=== PATIENT | male | born 1950 | race Caucasian/White ===

== ENCOUNTER → 2017-08-02 13:17 | Outpatient (CLI) | payer MEDICARE, OTHER, SELFPAY ==
[2017-08-02 17:08] LABS: BUN Creatinine Ratio 21.3 (6-22); Estimated Glomerular Filt Rate > 60.0 mL/min (>60)
== END ==
PROVIDERS: PCP Family Medicine; Visit Provider Otolaryngology
DX: J38.01 Paralysis of vocal cords and larynx, unilateral (principal)
CPT/HCPCS: 36415; 82565; 84520

== ENCOUNTER → 2017-08-08 13:52 | Outpatient (CLI) | payer MEDICARE, OTHER, SELFPAY ==
--- NOTE | 2017-08-08 | DI.CT.S_ITS ---
PROCEDURE: CT SOFT TISSUE NECK W CON INDICATIONS: LEFT VOCAL CORD PARALYSIS TECHNIQUE: After the administration of intravenous contrast, 3.0 mm axial sections acquired from the skull base to the upper chest. Additional 1.5 mm axial sections acquired through the true vocal cords. 1 mm thick coronal reformats were generated. For radiation dose reduction, the following was used: automated exposure control. COMPARISON: None. FINDINGS: Image quality: Excellent. Vocal cords: Vocal cords appear irregular with an apparent partially calcified nodule in the left leaf posteriorly.. Neck spaces: The oropharynx, nasopharynx, and pharynx demonstrate no mucosal lesions. The epiglottis, vallecular, and tongue base all appear normal. There is incomplete aeration of the left anterior portion of the puriform sinus and suggestion of a 12 mm soft tissue mass just inferior to the hyoid bone. Enhancement however is homogeneous to surrounding tissues except perhaps some subtle peripheral hyperenhancement. The soft tissue mass effect extends superiorly along the left tonsillar pillar to the base of tongue. Lymph nodes: No enlarged lymph nodes seen throughout the neck. Left supraclavicular lymph nodes measure up to 9 mm in short diameter. There is however an abnormal lobulated soft tissue mass in the superior mediastinum lateral to the trachea on the left, measuring 18 mm in short diameter. This is immediately subadjacent to the thyroid gland and could represent an exophytic nodule but enlarged lymph node cannot be excluded. Vessels: Visualized vasculature appears patent. Glands: The parotid and submandibular glands appear normal. Thyroid gland appears normal except for possible exophytic nodule at the inferior pole on the left as noted above.. Miscellaneous: Visualized brain and orbits appear unremarkable. Lung apices appear clear. Superficial soft tissues appear normal. The esophagus is markedly distended with prominent air fluid level. Distal portion of the esophagus is not included. Bones: No suspicious bony lesions. There is mucous membrane thickening and a small meniscus in the right maxillary sinus, otherwise sinuses sinuses and mastoids appear unremarkable. IMPRESSION: 1. Irregular, nodular left leaf of the vocal cords. Direct visualization advised. 2. Apparent soft tissue mass with minimal enhancement compromising the left piriform sinus. Again direct visualization is advised. 3. Negat esophagus. Findings could reflect achalasia or distal stricture or other obstruction such as tumor. Unless this is a known abnormality, fasting esophagram or endoscopy is suggested. 4. Soft tissue mass left superior mediastinum. Differential includes an enlarged lymph node, exophytic thyroid nodule or large parathyroid adenoma. Thyroid ultrasound may be helpful. 5. Chronic and possibly active right maxillary sinusitis. Dictated by: Bigg Boo M.D. on 08/08/2017 at 14:42 Approved by: Bigg Boo M.D. on 08/08/2017 at 15:03
== END ==
PROVIDERS: PCP Family Medicine; Visit Provider Otolaryngology
DX: J38.01 Paralysis of vocal cords and larynx, unilateral (principal); J32.0 Chronic maxillary sinusitis; R05 Cough; R49.0 Dysphonia
CPT/HCPCS: 70491; Q9967

== ENCOUNTER → 2017-11-19 13:00 | Outpatient (CLI) | payer MEDICARE, OTHER, SELFPAY | PROVIDERS: PCP Family Medicine | DX: Z23 Encounter for immunization (principal) | CPT/HCPCS: 90471; 90662 ==

== ENCOUNTER → 2018-07-01 14:05 | Outpatient (CLI) | payer MEDICARE, OTHER, SELFPAY ==
[2018-07-01 14:30] LABS: Add Manual Diff / Slide Review NO; Basophils Absolute Auto 100 /uL (0-100); Basophils Percent Auto 1.2 % (0-2); Eosinophils Absolute Auto 800 /uL (0-450); Eosinophils Percent Auto 8.4 % (2-4); Hematocrit 42.5 % (41-53); Hemoglobin 14.6 g/dL (13.5-17.5); Lymphocytes Absolute Auto 2300 /uL (1100-4500); Mean Corpuscular HGB Conc 34.4 % (30-36); Mean Corpuscular Hemoglobin 31.1 PG (26-34); Mean Corpuscular Volume 90.5 fL (80-100); Monocytes Absolute Auto 900 /uL (0-900); Monocytes Percent Auto 9.6 % (3-14); Neutrophils Absolute Auto 5400 /uL (1500-7000); Neutrophils Percent Auto 56.8 % (50-75); Platelet Count 298 X10^3/uL (150-400); White Blood Cell Count 9.5 X10^3/uL (4.5-11.0)
[2018-07-01 14:47] LABS: Alanine Aminotransferase 26 IU/L (21-72); Albumin 4.6 g/dL (3.5-5.0); Albumin Globulin Ratio 1.4 (1.0-2.8); Alkaline Phosphatase 53 U/L (38-126); Aspartate Aminotransferase 34 IU/L (17-59); BUN Creatinine Ratio 21.3 (6-22); Bilirubin Total 0.5 mg/dL (0.2-1.3); Blood Urea Nitrogen 17 mg/dL (9-20); Calcium 9.3 mg/dL (8.4-10.2); Carbon Dioxide 27 mmol/L (22-32); Chloride 102 mmol/L (98-107); Cholesterol 147 mg/dL (140-199); Estimated Glomerular Filt Rate > 60.0 mL/min (>60); Globulin 3.3 g/dL (1.7-4.1); Glucose 110 mg/dL (80-110); HDL Cholesterol 55 mg/dL (40-60); HEMOLYSIS < 15 (0-50); LDL Cholesterol Calculated 53 mg/dL (<100); Sodium 141 mmol/L (137-145); Total Protein 7.9 g/dL (6.3-8.2); Triglycerides 194 mg/dL (35-150)
== END ==
PROVIDERS: PCP Student in an Organized Health Care Education/Training Program; Visit Provider Student in an Organized Health Care Education/Training Program
DX: E78.00 Pure hypercholesterolemia, unspecified (principal); E55.9 Vitamin D deficiency, unspecified; I10 Essential (primary) hypertension; M10.9 Gout, unspecified; Z79.899 Other long term (current) drug therapy
CPT/HCPCS: 36415; 80053; 80061; 82306; 85025

== ENCOUNTER → 2018-07-24 10:34 | Outpatient (CLI) | payer MEDICARE, OTHER, SELFPAY ==
[2018-07-24 11:27] LABS: Add Manual Diff / Slide Review NO; Basophils Absolute Auto 200 /uL (0-100); Basophils Percent Auto 1.3 % (0-2); Eosinophils Absolute Auto 1500 /uL (0-450); Eosinophils Percent Auto 12.4 % (2-4); Hematocrit 43.1 % (41-53); Hemoglobin 14.3 g/dL (13.5-17.5); Lymphocytes Absolute Auto 2500 /uL (1100-4500); Mean Corpuscular HGB Conc 33.2 % (30-36); Mean Corpuscular Hemoglobin 29.8 PG (26-34); Monocytes Absolute Auto 1200 /uL (0-900); Monocytes Percent Auto 9.8 % (3-14); Neutrophils Absolute Auto 6700 /uL (1500-7000); Neutrophils Percent Auto 55.5 % (50-75); Platelet Count 324 X10^3/uL (150-400); Red Blood Cell Count 4.79 X10^6/uL (4.5-5.9); Red Cell Distribution Width 14.2 % (11.6-14.8); White Blood Cell Count 12.1 X10^3/uL (4.5-11.0)
[2018-07-26 14:16] LABS: Angiotensin Converting Enzyme 18 U/L (9-67)
[2018-07-26 15:42] LABS: HLA B27 NEGATIVE (Negative)
[2018-07-27 14:23] LABS: Mitogen-NIL 6.99 IU/mL; NIL 0.02 IU/mL; QuantiFERON TB NEGATIVE (Negative); TB1-NIL < 0.01 IU/mL; TB2-NIL < 0.01 IU/mL
[2018-07-28 12:33] LABS: Lysozyme (Muramidase) 7.6 mcg/mL (5.0-11.0)
[2018-07-28 13:41] LABS: RPR Screen Nonreactive (Nonreactive)
== END ==
PROVIDERS: PCP Student in an Organized Health Care Education/Training Program; Visit Provider Ophthalmology
DX: H20.011 Primary iridocyclitis, right eye (principal); M45.9 Ankylosing spondylitis of unspecified sites in spine
CPT/HCPCS: 36415; 82164; 85025; 85549; 86480; 86592; 86777; 86778; 86780; 86812

== ENCOUNTER → 2018-07-29 10:48 | Outpatient (CLI) | payer MEDICARE, OTHER, SELFPAY ==
[2018-07-29 12:24] LABS: BUN Creatinine Ratio 22.9 (6-22); Blood Urea Nitrogen 16 mg/dL (9-20); Carbon Dioxide 30 mmol/L (22-32); Chloride 97 mmol/L (98-107); Estimated Glomerular Filt Rate > 60.0 mL/min (>60); Glucose 103 mg/dL (80-110); HEMOLYSIS < 15 (0-50); Potassium 4.7 mmol/L (3.4-5.1); Sodium 138 mmol/L (137-145)
--- NOTE | 2018-07-29 12:28 | DI.CT.S_ITS ---
PROCEDURE: CT CHEST W CON INDICATIONS: mediastinal mass superior L side TECHNIQUE: After the administration of intravenous contrast, 5 mm thick sections acquired from the pulmonary apices to the posterior costophrenic angles. 7 mm thick coronal and sagittal MIP reformats were acquired. For radiation dose reduction, the following was used: automated exposure control, adjustment of mA and/or kV according to patient size. COMPARISON: [facility], CT, CT SOFT TISSUE NECK W CON, 07/29/2018, 13:17. [facility], CT, CT SOFT TISSUE NECK W CON, 08/08/2017, 13:55. FINDINGS: Image quality: Excellent. Lungs and pleura: No acute consolidation. Multiple bilateral variable size pulmonary nodules measuring up to 1.6 x 1.3 cm in the right upper lobe on image 20 series 3. 2.2 x 1.6 cm dominant nodule seen in the left lung in the left upper lobe on image 29 series 3. No pleural effusions or pneumothorax. Central and peripheral airways are patent and normal in caliber. Mediastinum: Heart size is normal. Coronary artery calcifications are present. No pericardial effusion. Large right hilar lymphadenopathy image 41 series 2 measuring approximately 3.6 x 2.2 cm. Shotty mediastinal lymph nodes, appear subcentimeter in size. Thoracic aorta and central pulmonary arteries are normal in size. Large hiatal hernia is present. There is a residual fluid seen within the esophagus. Bones and chest wall: No suspicious bony lesions. No vertebral body compression fractures. Enlarged left supraclavicular lymph node measuring 2.4 x 2.9 cm on image 4 series 2. No pathologically enlarged axillary lymphadenopathy. Thyroid gland is mildly rightward displaced secondary to 4.1 x 3.3 cm mass in the left anterior superior mediastinum potentially thyroid although technically unclear origin, previously this measured 2.0 x 2.4 cm on 08/08/17 Abdomen: Visualized upper abdominal solid organs appear normal. Upper abdominal bowel loops are normal in caliber. IMPRESSION: Interval development of numerous bilateral pulmonary metastases as detailed above. Poorly defined left superior mediastinal lymphadenopathy/soft tissue mass. This has progressed since the prior study dated 08/08/17 Enlarged right hilar and left supraclavicular lymphadenopathy Large hiatal hernia. Dictated by: Angel Salas M.D. on 07/29/2018 at 14:31 Approved by: Angel Salas M.D. on 07/29/2018 at 14:46
--- NOTE | 2018-07-29 12:29 | DI.CT.S_ITS ---
PROCEDURE: CT SOFT TISSUE NECK W CON INDICATIONS: superior mediastinal mass Left TECHNIQUE: After the administration of intravenous contrast, 3.0 mm axial sections acquired from the sella to the aortic arch. Additional oblique axial 3.0 mm sections acquired through the pharynx. 3 mm thick coronal and sagittal reformats were generated. For radiation dose reduction, the following was used: automated exposure control. COMPARISON: [facility], CT, CT SOFT TISSUE NECK W CON, 08/08/2017, 13:55. FINDINGS: Image quality: Excellent. Lymph nodes: There are multiple enlarged left level IV lymph nodes are noted with largest node measuring 2.2 cm short axis. Vessels: Visualized vasculature appears patent. Neck spaces: The left superior mediastinal soft tissue density mass has increased in size and now involves the left lower neck/upper mediastinum. Prominence and irregularity of the left tongue base mucosal extending into the left vallecula is noted which is not significantly changed compared to 08/08/2017.. The nasopharynx, and pharynx demonstrate no mucosal lesions. The vocal cords, false vocal cords, pyriform sinuses, epiglottis and right vallecula all appear normal. Nodularity of the left vocal cord identified on prior CT scan obtained 08/08/17 is not seen on the current study. Extramucosal spaces appear unremarkable. Glands: The parotid and submandibular glands appear normal. Thyroid gland contains small subcentimeter nodules. Miscellaneous: Visualized brain and orbits appear normal. Numerous nodules are scattered throughout the lung apices bilaterally ranging in size from 0.3-1.8 cm. Superficial soft tissues appear normal. Patulous esophagus is stable. Bones: No suspicious bony lesions. Mucosal thickening and frothy air fluid level noted in the right maxillary sinus. Small left maxillary sinus mucous retention cyst versus polyp. The visualized mastoids appear unremarkable. IMPRESSION: 1. Enlargement of left superior mediastinal mass with extension into the lower left neck. Finding highly suspicious for primary or metastatic carcinoma versus lymphoma. Biopsy is recommended for further evaluation. Lesion could be biopsied under ultrasound guidance if clinically indicated. 2. Left level IV metastatic lymphadenopathy. 3. Multiple bilateral lung metastatic nodules. 4. Left tongue base mucosal prominence and irregularity stable compared to 08/08/2017. 5. Patulous esophagus concerning for distal esophageal stricture which could be benign or malignant. Dictated by: Angie Rg MD, PhD on 07/29/2018 at 16:46 Approved by: Angie Rg MD, PhD on 07/29/2018 at 17:04
== END ==
PROVIDERS: PCP Student in an Organized Health Care Education/Training Program; Visit Provider Surgery
DX: C80.1 Malignant (primary) neoplasm, unspecified (principal); C78.01 Secondary malignant neoplasm of right lung; C78.02 Secondary malignant neoplasm of left lung; C77.8 Secondary and unspecified malignant neoplasm of lymph nodes of multiple regions; J98.59 Other diseases of mediastinum, not elsewhere classified; I25.10 Atherosclerotic heart disease of native coronary artery without angina pectoris; K44.9 Diaphragmatic hernia without obstruction or gangrene; J38.00 Paralysis of vocal cords and larynx, unspecified; R22.1 Localized swelling, mass and lump, neck; R22.2 Localized swelling, mass and lump, trunk
CPT/HCPCS: 36415; 70491; 71260; 80048; 99215; Q9967

== ENCOUNTER → 2018-08-12 08:49 | Outpatient (CLI) | payer MEDICARE, OTHER, SELFPAY ==
--- NOTE | 2018-08-12 | PATH_ITS ---
Note [facility] Accession Number: [id number] TESTS RESULT FLAG UNITS REF RANGE LAB Clinician Provided Cytology Information No. of containers..01 ThinPrep Vial No. of containers..08 Previously Prepared Cytology Slide [A] 01 L SUPRACLAVICULAR LY DIAGNOSIS: [A] 02 L Supraclavicular lymph node POSITIVE FOR MALIGNANT CELLS. THIS INTERPRETATION INCLUDES EVALUATION OF A CELL BLOCK. IMMUNOHISTOCHEMISTRY STUDIES PENDING; RESULTS WILL BE REPORTED AN ADDENDUM. COMMENT: Results discussed with Dr. Funes on 08/14/18 at approximately 2:00 p.m. Pathologist ICD10: 02 J98.59 01 No prev h/o cancer. Positive for malignancy. Possibly melanoma? 02 Tori Bro MD, Pathologist NPI- [id number] Terence Rodriguez, Production Director ([facility]) 01 30 CC, PINK, CLEAR Also received 4 alcohol fixed, 4 quick stained slides, and 1 RNA vial. /HKH FLAG LEGEND: L-Low Normal,H-High Normal,LL-Alert Low,HH-Alert High <-Panic Low,>-Panic High,A-Abnormal,AA-Critical Abnormal Performed at: 01 =Z [facility] [address] [address], [place] [address] Arian Mills MD, 02 LCLWA [facility] [address] [place] [id number] Amita Zuniga MD, Performed at: [address] [facility] [address], [place], [place] [id number] MD Arian Mills MD Phone: [phone]
--- NOTE | 2018-08-12 08:50 | DI.US.S_ITS ---
PROCEDURE: US FINE NEEDLE ASPIRATION INDICATIONS: ENLARGED LEFT SUPRACLAVICULAR LYMPH NODE TECHNIQUE: The indications, alternatives, benefits, risks, and complications of the procedure were explained to the patient. Written informed consent was obtained and placed in the chart. The area of interest was examined sonographically and a site was chosen for ultrasound guided percutaneous sampling. The skin was prepared and draped in the usual fashion, and anesthetized with 1% lidocaine infiltrated from the skin down to the lesion. Multiple passes were then performed, with contents emptied into an appropriate pathology specimen container. A bandage was applied to the area of access at completion of the study. COMPARISON: [facility], CT, CT SOFT TISSUE NECK W CON, 07/29/2018, 13:17. FINDINGS: Location(s) of lesion(s) sampled: Left supraclavicular lymph node [place]: 25 gauge hypodermic needles. Number of passes: 8 Medications: 1% lidocaine for local anaesthesia. Complications: None. IMPRESSION: Successful ultrasound-guided left supraclavicular lymph node fine needle aspiration biopsy, with cytology results pending. Dictated by: Margo Shukla M.D. on 08/12/2018 at 10:50 Approved by: Margo Shukla M.D. on 08/12/2018 at 10:51
== END ==
PROVIDERS: PCP Student in an Organized Health Care Education/Training Program; Visit Provider Surgery
DX: R59.0 Localized enlarged lymph nodes (principal); J98.59 Other diseases of mediastinum, not elsewhere classified
CPT/HCPCS: 10005

== ENCOUNTER 2018-08-25 01:34 | Emergency (ER) | payer MEDICARE, OTHER, SELFPAY ==
--- NOTE | 2018-08-25 01:46 | ED.NECK ---
HPI - Neck Pain/Injury General Chief Complaint: Chest Pain Stated Complaint: neck pain Time Seen by Provider: 08/25/18 01:46 Source: patient, family, EMS and old records reviewed Mode of arrival: EMS Limitations: no limitations History of Present Illness HPI Narrative: Patient is a a 68-year-old male who presents with bilateral neck pain. He said started will come from a sleep. No radiation down to his hands. No chest pain or shortness of breath. 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 Initially did not seek treatment however over the last 5-6 months he has had increased difficulty swallowing. He had scans in July which showed increased gross in left sided mass with lung involvement. This is likely metastatic disease. He had a biopsy done at the beginning of the month. states that he is scheduled to meet with surgery tomorrow to get results of the pathology. MD complaint: neck pain Related Data Home Medications Medication Instructions Recorded Confirmed [DGL supplement] 2 cap PO QDAY #0 06/08/16 07/31/18 coQ10 (ubiquinol) PO 10/16/17 07/31/18 olive leaf extract 250 mg capsule 750 mg PO cap 10/16/17 07/31/18 cinnamon bark 500 mg capsule 500 mg PO DAILY 06/05/18 07/31/18 krill oil 500 mg capsule mg PO cap 06/05/18 07/31/18 slow niacin PO 06/05/18 07/31/18 Previous Rx's Medication Instructions Recorded omeprazole 20 mg tablet,delayed 20 mg PO Q DAY #90 tab 10/31/17 release hydrocortisone valerate 0.2 % 1 applictn TOP BID #15 gram 06/05/18 topical cream losartan 50 mg tablet 50 mg PO QDAY #90 tab 06/05/18 simvastatin 10 mg tablet 10 mg PO HS #90 tab 06/05/18 hydrocodone-acetaminophen [[place]] 0.5 tab PO Q6H PRN #10 tab 08/25/18 Allergies Allergy/AdvReac Type Severity Reaction Status Date / Time No Known Drug Allergies Allergy Verified 07/31/18 14:48 Review of Systems Review of Systems ROS Unobtainable: All systems reviewed & are unremarkable except as noted in HPI and below Constitutional Denies chills, Denies fever(s), Denies lethargy and Denies weakness Eyes Denies change in vision, Denies eye discharge, Denies irritation and Denies loss of vision ENT Ears, Nose, Mouth, and Throat: Reports system reviewed and no additional complaints, except as docu Cardiovascular Denies chest pain, Denies irregular heart rhythm, Denies lightheadedness, Denies palpitations, Denies dyspnea, Denies dyspnea on exertion and Denies orthopnea Respiratory Denies cough, Denies dyspnea, Denies dyspnea on exertion and Denies wheezing Gastrointestinal Gastrointestinal: Denies abdominal pain, Denies change in bowel habits, Denies diarrhea, Denies nausea and Denies vomiting Musculoskeletal Denies back pain, Denies muscle weakness, Denies numbness and Denies tingling Integumentary/Breasts Denies pruritus, Denies erythema, Denies rash and Denies wounds Neurologic Denies loss of vision, Denies numbness, Denies tingling and Denies weakness Endocrine Denies palpitations Allergic/Immunologic Denies wheezing FORMERLY [facility], 1928–[address] scan, neck (Chronic) Mediastinal mass (Chronic) Vocal cord paralysis (Chronic) GERD (gastroesophageal reflux disease) (Chronic Unknown) Gout (Chronic Unknown) Hyperlipemia (Chronic Unknown) Hypertension (Chronic Unknown) Chickenpox (Resolved) Hemorrhoids (Resolved Unknown) Hx of cardiac arrhythmia (Resolved Unknown) Hx of deep venous thrombosis (Resolved 01/2016) Measles (Resolved) Mumps (Resolved) Surgical History History of tonsillectomy and adenoidectomy (Resolved Unknown) Hx of appendectomy (Resolved Unknown) Hx of bilateral inguinal hernia repair (Resolved 12/2016) Family History Sister Cancer Family/Other Cancer Social History (Updated 07/29/18 @ 10:03 by Vida Branham RN) marital status: household members: spouse occupational status: previously employed Smoking Status: Never smoker alcohol intake: never substance use type: does not use Family History Sister Cancer Family/Other Cancer Social History marital status: household members: spouse occupational status: previously employed Smoking Status: Never smoker alcohol intake: never substance use type: does not use Exam Initial Vital Signs Initial Vital Signs: Vital Signs Temperature 98.3 F 08/25/18 01:48 Pulse Rate 67 08/25/18 01:48 Respiratory Rate 20 08/25/18 01:48 Blood Pressure 131/68 08/25/18 01:48 Pulse Oximetry 100 08/25/18 01:48 GENERAL: Alert pleasant overweight male no acute distress and in [no acute] distress. HEENT: Head atraumatic,EOMI, pupils reactive, face symmetric, CARDIOVASCULAR: Regular rate and rhythm without murmurs, rubs or gallops. RESPIRATORY: Breath sounds equal bilaterally, no wheezes rales or rhonchi. Voice is hoarse but no difficulty managing secretions no obvious respiratory distress ABDOMEN: Soft, nontender. Normoactive bowel sounds all 4 quadrants. No guarding or rebound. EXTREMITIES: Normal range of motion, no clubbing or edema. Neurovascularly intact NEUROLOGICAL: Alert and oriented x4.Normal gait and speech. Cranial nerves II through XII grossly intact. SKIN: Warm, dry, no laceration, no petechiae, no rashes or lesions. Course Orders Ordered: ED Orders 08/25/18 EKG-12 Lead Routine 08/25/18 01:50 Complete Blood Count AUTO DIFF Stat Comprehensive Metabolic Panel Stat Lipase Stat Troponin & CK Cardiac Panel Stat 08/25/18 01:52 CT chest w con Stat CT soft tissue neck w con Stat Discontinued Medications Hydrocodone Bitart/Acetaminophen (Vicodin Prepack) 1 bottle MISC SEEINSTR ONE Stop: 08/25/18 05:05 Last Admin: 08/25/18 05:10 Dose: 1 bottle Vital Signs - 8 hr 08/25/18 01:48 08/25/18 04:22 08/25/18 05:12 Temperature 98.3 F Pulse Rate 67 66 82 Respiratory Rate 20 23 18 Blood Pressure 131/68 142/72 H Blood Pressure [Right Arm] 134/69 Pulse Oximetry 100 93 99 MDM - Neck Pain/Injury Lab Data Attestation: I reviewed the patient's lab results. Result diagrams: 08/25/18 01:50 08/25/18 01:50 Lab Results 08/25/18 08/25/18 Range/Units 01:50 01:50 WBC 15.4 H (4.5-11.0) X10^3/uL RBC 4.80 (4.5-5.9) X10^6/uL Hgb 14.5 (13.5-17.5) g/dL Hct 42.5 (41-53) % MCV 88.7 (80-100) fL MCH 30.3 (26-34) PG MCHC 34.2 (30-36) % RDW 14.4 (11.6-14.8) % Plt Count 306 (150-400) X10^3/uL Neut % (Auto) 57.1 (50-75) % Lymph % (Auto) 18.7 L (25-40) % [place] % (Auto) 8.1 (3-14) % Eos % (Auto) 14.9 H (2-4) % Baso % (Auto) 1.2 (0-2) % Neut # (Auto) 8800 H (0357-5831) /uL Lymph # (Auto) 2900 (6723-2709) /uL [place] # (Auto) 1200 H (0-900) /uL Eos # (Auto) 2300 H (0-450) /uL Baso # (Auto) 200 H (0-100) /uL Sodium 137 (137-145) mmol/L Potassium 3.9 (3.4-5.1) mmol/L Chloride 98 (98-107) mmol/L Carbon Dioxide 29 (22-32) mmol/L BUN 16 (9-20) mg/dL Creatinine 0.80 (0.66-1.25) mg/dL Estimated GFR > 60.0 (>60) mL/min BUN/Creatinine Ratio 20.0 (6-22) Glucose 127 H (80-110) mg/dL Calcium 9.4 (8.4-10.2) mg/dL Total Bilirubin 0.4 (0.2-1.3) mg/dL AST 25 (17-59) IU/L ALT 19 L (21-72) IU/L Alkaline Phosphatase 56 (38-126) U/L Total Creatine Kinase 193 H (55-170) U/L CK-MB (CK-2) 3.12 H (<2.37) ng/mL CK-MB (CK-2) Rel Index 1.6 (1.5-5.0) % Troponin I < 0.012 (0.01-0.034) ng/mL Total Protein 8.0 (6.3-8.2) g/dL Albumin 4.4 (3.5-5.0) g/dL Globulin 3.6 (1.7-4.1) g/dL Albumin/Globulin Ratio 1.2 (1.0-2.8) Lipase 83 (23-300) U/L Imaging Data CT soft tissue neck: 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 Enlarged left lower jugular chain and posterior chain lymph nodes contiguous with upper mediastinal lymphadenopathy with partial encasement of left common carotid artery, tumor/thrombus within the left internal jugular vein and displacement of supraglottic trachea without airway narrowing. 2. Left vocal cord paralysis suspected 3. Extensive metastatic disease in the lungs with particular right hilar adenopathy. ECG Data Attestation: I personally reviewed and interpreted this ECG as follows: Prior ECG tracings: available for review Interpretation: Normal sinus rhythm rate [address] changes some mild T-wave inversions noted in lead 3 MDM Narrative Medical decision making narrative: Patient has appointment with surgery. He is sleeping in the emergency department overall appears in no pain. At this time I think his neck pain is more related to his masses invasion into the carotid artery rather than cardiac disease process. He has previously used the cream to help with pain. He is currently pain-free at this time. I did discuss with them having some stronger pain pills on hand in case his pain gets worse. At this time I recommend following up with surgery as previously arranged. With invasion into the carotid artery not sure it is surgical. Overall he appears comfortable he is ambulatory to the restroom. Discharge Plan Departure Patient Disposition: Home Clinical Impression: Neck mass Discharge Date/Time: 08/25/18 05:13 Interventions: ED Discharge Assessment Last Done: 08/25/18 05:12 Activity Restrictions/Additional Instructions: *You have been diagnosed with neck mass *What to do: Masses involving carotid artery now along with internal jugular vein. *Continue to take medications as directed [place] half tablet every 6 hours if needed for severe pain *Follow up with your primary care provider in 2-3 days, follow up with tomorrow as previously arranged *Return to ER if you should have increasing pain, increasing difficulty breathing or any new, worsening or concerning symptoms CONTROLLED SUBSTANCE DISCHARGE (Narcotoic/benzodiazepine/Flexeril/Phenergan) 1. You have been prescribed narcotic medications, it does have acetaminophen/Tylenol/paracetamol in it so do not take extra Tylenol or Tylenol containing products 2. Please understand that we cannot provide further refills of narcotics, benzodiazepines or controlled substances through the ED and her pain management will need to be through your provider. 3. While on these medications you cannot drive or operate heavy machinery. 4. You cannot sign legal documents or perform any duties such as this. 5. As long as you're taking opiate pain medications he should also be taking a stool softener such as Colace, Dulcolax, MiraLAX or prune juice, to help avoid constipation. Prescriptions: New hydrocodone-acetaminophen [[place]] 5-325 mg tablet 0.5 tab PO Q6H PRN (Reason: pain) Qty: 10 RF: 0 No Action [DGL supplement] 2 cap PO QDAY Qty: 0 RF: 0 omeprazole 20 mg tablet,delayed release (DR/EC) 20 mg PO Q DAY Qty: 90 RF: 0 hydrocortisone valerate 0.2 % cream 1 applictn TOP BID Qty: 15 RF: 1 cinnamon bark 500 mg capsule 500 mg PO DAILY RF: 0 krill oil 500 mg capsule PO RF: 0 slow niacin PO RF: 0 losartan 50 mg tablet 50 mg PO QDAY Qty: 90 RF: 1 simvastatin 10 mg tablet 10 mg PO HS Qty: 90 RF: 1 coQ10 (ubiquinol) PO RF: 0 olive leaf extract 250 mg capsule 750 mg PO RF: 0 Referrals: Reuben Rosado MD [Primary Care Provider] -
[2018-08-25 01:48] VITALS: BP 131/68; PULSE 67; RESP 20; TEMP 36.8; O2SAT 100; BMI 33.3
--- NOTE | 2018-08-25 01:52 | DI.CT.S_ITS ---
PROCEDURE: CT CHEST W CON INDICATIONS: known lung masses worsening neck pain today and sob TECHNIQUE: After the administration of intravenous contrast, 5 mm thick sections acquired from the pulmonary apices to the posterior costophrenic angles. 7 mm thick coronal and sagittal MIP reformats were acquired. For radiation dose reduction, the following was used: automated exposure control, adjustment of mA and/or kV according to patient size. COMPARISON: [facility], CT, CT SOFT TISSUE NECK W CON, 08/25/2018, 2:21. [facility], CT, CT CHEST W CON, 07/29/2018, 13:17. FINDINGS: Image quality: Excellent. Lungs and pleura: Numerous bilateral pulmonary masses are identified with a slight overall interval increase in size. The previously identified target lesion in the right upper lobe seen on series 506 image 19 measures 19 mm x 19 mm compared to 16 mm x 13 mm. The second target lesion in the left upper lobe on series 506 image 28 measures 28 mm x 33 mm compared to 22 mm x 16 mm. The overall number of lesions appears relatively stable. Mediastinum: Heart size is enlarged. No pericardial effusion. No mediastinal or hilar adenopathy by size criteria. Thoracic aorta and central pulmonary arteries are normal in size. Esophagus is mildly effaced by the left supraclavicular mass in the upper segment. Fluid is present within the distal esophagus. Prominent hiatal hernia. Bones and chest wall: No suspicious bony lesions. No vertebral body compression fractures. The previously noted left supraclavicular lymph node has increased in size measuring 39 mm x 55 mm compared to 24 mm x 29 mm. There are additional left-sided supraclavicular mass is incompletely visualized. They also appear to be increased in size. There is slightly progressive left right midline shift of the trachea and tracheal and anterior esophageal effacement.. Thyroid gland demonstrates mild rightward displacement secondary to left-sided adjacent mass.. Abdomen: Visualized upper abdominal solid organs appear normal. Upper abdominal bowel loops are normal in caliber. IMPRESSION: 1. Numerous bilateral pulmonary nodules and mass lesions with mild interval increase in size suggestive of interval disease progression as noted above. 2. Enlargement of left supraclavicular adenopathy consistent with disease progression. There has been interval progression of left to right midline shift and mass effect on the trachea, thyroid and esophagus. Dictated by: Aracely Antunez M.D. on 08/25/2018 at 8:32 Approved by: Aracely Antunez M.D. on 08/25/2018 at 8:59
--- NOTE | 2018-08-25 01:52 | DI.CT.S_ITS ---
PROCEDURE: CT SOFT TISSUE NECK W CON INDICATIONS: neck pain with known masses TECHNIQUE: After the administration of intravenous contrast, 3.0 mm axial sections acquired from the sella to the aortic arch. Additional oblique axial 3.0 mm sections acquired through the pharynx. 3 mm thick coronal and sagittal reformats were generated. For radiation dose reduction, the following was used: automated exposure control. COMPARISON: [facility], CT, CT SOFT TISSUE NECK W CON, 07/29/2018, 13:17. FINDINGS: Image quality: Excellent. Lymph nodes: Bulky left level IV lymphadenopathy has increased in size. Largest left level IV lymph node measures 3.1 cm in short axis in the current study. Vessels: Visualized arterial vasculature appears patent. The left internal jugular vein is thrombosed. 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 The left superior mediastinal mass extends into the left neck base having mass effect on the left lobe of the thyroid gland. The left superior mediastinal mass is causing rightward deviation of the upper thoracic trachea. Mucosal prominence involving the left aspect of the tongue base is not significantly changed compared to prior examination. The nasopharynx, and pharynx demonstrate no mucosal lesions. There is medialization of the left vocal cord concerning for vocal cord paralysis. The pyriform sinuses, epiglottis, vallecula, and tongue base all appear normal. Extramucosal spaces appear unremarkable. Glands: The parotid and submandibular glands appear normal. Thyroid gland demonstrates normal enhancement. Miscellaneous: Visualized brain and orbits appear normal. Nodules involving the lungs bilaterally are are not significantly changed in size or contour and are stable in number compared to the prior examination. Superficial soft tissues appear normal. Mucosal thickening noted in the right maxillary sinus. Patulous proximal cervical esophagus is redemonstrated. Bones: No suspicious bony lesions. Spine degenerative disc disease and facet arthropathy. Visualized sinuses and mastoids appear unremarkable. IMPRESSION: 1. 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 2. Bulky left level IV neck lymphadenopathy has increased in size compared to prior examination. 3. Probable left vocal cord paralysis. 4. Left internal jugular vein thrombosis. 5. Bilateral lung metastatic nodules not significantly changed compared to prior examination. Dictated by: Angie Rg MD, PhD on 08/25/2018 at 8:18 Approved by: Angie Rg MD, PhD on 08/25/2018 at 8:44
[2018-08-25 02:05] LABS: Add Manual Diff / Slide Review NO; Basophils Absolute Auto 200 /uL (0-100); Basophils Percent Auto 1.2 % (0-2); Eosinophils Absolute Auto 2300 /uL (0-450); Eosinophils Percent Auto 14.9 % (2-4); Hematocrit 42.5 % (41-53); Hemoglobin 14.5 g/dL (13.5-17.5); Lymphocytes Absolute Auto 2900 /uL (1100-4500); Lymphocytes Percent Auto 18.7 % (25-40); Mean Corpuscular HGB Conc 34.2 % (30-36); Mean Corpuscular Hemoglobin 30.3 PG (26-34); Mean Corpuscular Volume 88.7 fL (80-100); Monocytes Absolute Auto 1200 /uL (0-900); Monocytes Percent Auto 8.1 % (3-14); Neutrophils Absolute Auto 8800 /uL (1500-7000); Neutrophils Percent Auto 57.1 % (50-75); Platelet Count 306 X10^3/uL (150-400); Red Cell Distribution Width 14.4 % (11.6-14.8); White Blood Cell Count 15.4 X10^3/uL (4.5-11.0)
[2018-08-25 02:14] LABS: Alanine Aminotransferase 19 IU/L (21-72); Albumin 4.4 g/dL (3.5-5.0); Albumin Globulin Ratio 1.2 (1.0-2.8); Alkaline Phosphatase 56 U/L (38-126); Aspartate Aminotransferase 25 IU/L (17-59); Bilirubin Total 0.4 mg/dL (0.2-1.3); Blood Urea Nitrogen 16 mg/dL (9-20); Calcium 9.4 mg/dL (8.4-10.2); Carbon Dioxide 29 mmol/L (22-32); Chloride 98 mmol/L (98-107); Creatine Kinase 193 U/L (55-170); Estimated Glomerular Filt Rate > 60.0 mL/min (>60); Globulin 3.6 g/dL (1.7-4.1); Glucose 127 mg/dL (80-110); HEMOLYSIS 16 (0-50); Lipase 83 U/L (23-300); Potassium 3.9 mmol/L (3.4-5.1); Sodium 137 mmol/L (137-145)
[2018-08-25 02:26] LABS: Troponin I < 0.012 ng/mL (0.01-0.034)
[2018-08-25 02:30] LABS: CKMB % Relative Index 1.6 % (1.5-5.0); Creatine Kinase MB 3.12 ng/mL (<2.37)
[2018-08-25 04:22] VITALS: BP 134/69; PULSE 66; RESP 23; O2SAT 93
--- NOTE | 2018-08-25 05:09 | ED_ITS ---
HPI - Neck Pain/Injury General Chief Complaint: Chest Pain Stated Complaint: neck pain Time Seen by Provider: 08/25/18 01:46 Source: patient, family, EMS and old records reviewed Mode of arrival: EMS Limitations: no limitations History of Present Illness HPI Narrative: Patient is a a 68-year-old male who presents with bilateral neck pain. He said started will come from a sleep. No radiation down to his hands. No chest pain or shortness of breath. 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 Initially did not seek treatment however over the last 5-6 months he has had increased difficulty swallowing. He had scans in July which showed increased gross in left sided mass with lung involvement. This is likely metastatic disease. He had a biopsy done at the beginning of the month. states that he is scheduled to meet with surgery tomorrow to get results of the pathology. MD complaint: neck pain Related Data Home Medications Medication Instructions Recorded Confirmed [DGL supplement] 2 cap PO QDAY #0 06/08/16 07/31/18 coQ10 (ubiquinol) PO 10/16/17 07/31/18 olive leaf extract 250 mg capsule 750 mg PO cap 10/16/17 07/31/18 cinnamon bark 500 mg capsule 500 mg PO DAILY 06/05/18 07/31/18 krill oil 500 mg capsule mg PO cap 06/05/18 07/31/18 slow niacin PO 06/05/18 07/31/18 Previous Rx's Medication Instructions Recorded omeprazole 20 mg tablet,delayed 20 mg PO Q DAY #90 tab 10/31/17 release hydrocortisone valerate 0.2 % 1 applictn TOP BID #15 gram 06/05/18 topical cream losartan 50 mg tablet 50 mg PO QDAY #90 tab 06/05/18 simvastatin 10 mg tablet 10 mg PO HS #90 tab 06/05/18 hydrocodone-acetaminophen [[place]] 0.5 tab PO Q6H PRN #10 tab 08/25/18 Allergies Allergy/AdvReac Type Severity Reaction Status Date / Time No Known Drug Allergies Allergy Verified 07/31/18 14:48 Review of Systems Review of Systems ROS Unobtainable: All systems reviewed & are unremarkable except as noted in HPI and below Constitutional Denies chills, Denies fever(s), Denies lethargy and Denies weakness Eyes Denies change in vision, Denies eye discharge, Denies irritation and Denies loss of vision ENT Ears, Nose, Mouth, and Throat: Reports system reviewed and no additional complaints, except as docu Cardiovascular Denies chest pain, Denies irregular heart rhythm, Denies lightheadedness, Denies palpitations, Denies dyspnea, Denies dyspnea on exertion and Denies orthopnea Respiratory Denies cough, Denies dyspnea, Denies dyspnea on exertion and Denies wheezing Gastrointestinal Gastrointestinal: Denies abdominal pain, Denies change in bowel habits, Denies diarrhea, Denies nausea and Denies vomiting Musculoskeletal Denies back pain, Denies muscle weakness, Denies numbness and Denies tingling Integumentary/Breasts Denies pruritus, Denies erythema, Denies rash and Denies wounds Neurologic Denies loss of vision, Denies numbness, Denies tingling and Denies weakness Endocrine Denies palpitations Allergic/Immunologic Denies wheezing [facility] Medical History Abnormal CT scan, neck (Chronic) Mediastinal mass (Chronic) Vocal cord paralysis (Chronic) GERD (gastroesophageal reflux disease) (Chronic Unknown) Gout (Chronic Unknown) Hyperlipemia (Chronic Unknown) Hypertension (Chronic Unknown) Chickenpox (Resolved) Hemorrhoids (Resolved Unknown) Hx of cardiac arrhythmia (Resolved Unknown) Hx of deep venous thrombosis (Resolved 01/2016) Measles (Resolved) Mumps (Resolved) Surgical History History of tonsillectomy and adenoidectomy (Resolved Unknown) Hx of appendectomy (Resolved Unknown) Hx of bilateral inguinal hernia repair (Resolved 12/2016) Family History Sister Cancer Family/Other Cancer Social History (Updated 07/29/18 @ 10:03 by Vida Branham RN) marital status: household members: spouse occupational status: previously employed Smoking Status: Never smoker alcohol intake: never substance use type: does not use Family History Sister Cancer Family/Other Cancer Social History marital status: household members: spouse occupational status: previously employed Smoking Status: Never smoker alcohol intake: never substance use type: does not use Exam Initial Vital Signs Initial Vital Signs: Vital Signs Temperature 98.3 F 08/25/18 01:48 Pulse Rate 67 08/25/18 01:48 Respiratory Rate 20 08/25/18 01:48 Blood Pressure 131/68 08/25/18 01:48 Pulse Oximetry 100 08/25/18 01:48 GENERAL: Alert pleasant overweight male no acute distress and in [no acute] distress. HEENT: Head atraumatic,EOMI, pupils reactive, face symmetric, CARDIOVASCULAR: Regular rate and rhythm without murmurs, rubs or gallops. RESPIRATORY: Breath sounds equal bilaterally, no wheezes rales or rhonchi. Voice is hoarse but no difficulty managing secretions no obvious respiratory distress ABDOMEN: Soft, nontender. Normoactive bowel sounds all 4 quadrants. No guarding or rebound. EXTREMITIES: Normal range of motion, no clubbing or edema. Neurovascularly intact NEUROLOGICAL: Alert and oriented x4.Normal gait and speech. Cranial nerves II through XII grossly intact. SKIN: Warm, dry, no laceration, no petechiae, no rashes or lesions. Course Orders Ordered: ED Orders 08/25/18 EKG-12 Lead Routine 08/25/18 01:50 Complete Blood Count AUTO DIFF Stat Comprehensive Metabolic Panel Stat Lipase Stat Troponin & CK Cardiac Panel Stat 08/25/18 01:52 CT chest w con Stat CT soft tissue neck w con Stat Discontinued Medications Hydrocodone Bitart/Acetaminophen (Vicodin Prepack) 1 bottle MISC SEEINSTR ONE Stop: 08/25/18 05:05 Last Admin: 08/25/18 05:10 Dose: 1 bottle Vital Signs - 8 hr 08/25/18 01:48 08/25/18 04:22 08/25/18 05:12 Temperature 98.3 F Pulse Rate 67 66 82 Respiratory Rate 20 23 18 Blood Pressure 131/68 142/72 H Blood Pressure [Right Arm] 134/69 Pulse Oximetry 100 93 99 MDM - Neck Pain/Injury Lab Data Attestation: I reviewed the patient's lab results. Result diagrams: 08/25/18 01:50 08/25/18 01:50 Lab Results 08/25/18 08/25/18 Range/Units 01:50 01:50 WBC 15.4 H (4.5-11.0) X10^3/uL RBC 4.80 (4.5-5.9) X10^6/uL Hgb 14.5 (13.5-17.5) g/dL Hct 42.5 (41-53) % MCV 88.7 (80-100) fL MCH 30.3 (26-34) PG MCHC 34.2 (30-36) % RDW 14.4 (11.6-14.8) % Plt Count 306 (150-400) X10^3/uL Neut % (Auto) 57.1 (50-75) % Lymph % (Auto) 18.7 L (25-40) % [place] % (Auto) 8.1 (3-14) % Eos % (Auto) 14.9 H (2-4) % Baso % (Auto) 1.2 (0-2) % Neut # (Auto) 8800 H (6602-0892) /uL Lymph # (Auto) 2900 (6958-2160) /uL [place] # (Auto) 1200 H (0-900) /uL Eos # (Auto) 2300 H (0-450) /uL Baso # (Auto) 200 H (0-100) /uL Sodium 137 (137-145) mmol/L Potassium 3.9 (3.4-5.1) mmol/L Chloride 98 (98-107) mmol/L Carbon Dioxide 29 (22-32) mmol/L BUN 16 (9-20) mg/dL Creatinine 0.80 (0.66-1.25) mg/dL Estimated GFR > 60.0 (>60) mL/min BUN/Creatinine Ratio 20.0 (6-22) Glucose 127 H (80-110) mg/dL Calcium 9.4 (8.4-10.2) mg/dL Total Bilirubin 0.4 (0.2-1.3) mg/dL AST 25 (17-59) IU/L ALT 19 L (21-72) IU/L Alkaline Phosphatase 56 (38-126) U/L Total Creatine Kinase 193 H (55-170) U/L CK-MB (CK-2) 3.12 H (<2.37) ng/mL CK-MB (CK-2) Rel Index 1.6 (1.5-5.0) % Troponin I < 0.012 (0.01-0.034) ng/mL Total Protein 8.0 (6.3-8.2) g/dL Albumin 4.4 (3.5-5.0) g/dL Globulin 3.6 (1.7-4.1) g/dL Albumin/Globulin Ratio 1.2 (1.0-2.8) Lipase 83 (23-300) U/L Imaging Data CT soft tissue neck: 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 Enlarged left lower jugular chain and posterior chain lymph nodes contiguous with upper mediastinal lymphadenopathy with partial encasement of left common carotid artery, tumor/thrombus within the left internal jugular vein and displacement of supraglottic trachea without airway narrowing. 2. Left vocal cord paralysis suspected 3. Extensive metastatic disease in the lungs with particular right hilar adenopathy. ECG Data Attestation: I personally reviewed and interpreted this ECG as follows: Prior ECG tracings: available for review Interpretation: Normal sinus rhythm rate [address] changes some mild T-wave inversions noted in lead 3 MDM Narrative Medical decision making narrative: Patient has appointment with surgery. He is sleeping in the emergency department overall appears in no pain. At this time I think his neck pain is more related to his masses invasion into the carotid artery rather than cardiac disease process. He has previously used the cream to help with pain. He is currently pain-free at this time. I did discuss with them having some stronger pain pills on hand in case his pain gets worse. At this time I recommend following up with surgery as previously arranged. With invasion into the carotid artery not sure it is surgical. Overall he appears comfortable he is ambulatory to the restroom. Discharge Plan Departure Patient Disposition: Home Clinical Impression: Neck mass Discharge Date/Time: 08/25/18 05:13 Interventions: ED Discharge Assessment Last Done: 08/25/18 05:12 Activity Restrictions/Additional Instructions: *You have been diagnosed with neck mass *What to do: Masses involving carotid artery now along with internal jugular vein. *Continue to take medications as directed [place] half tablet every 6 hours if needed for severe pain *Follow up with your primary care provider in 2-3 days, follow up with tomorrow as previously arranged *Return to ER if you should have increasing pain, increasing difficulty breathing or any new, worsening or concerning symptoms CONTROLLED SUBSTANCE DISCHARGE (Narcotoic/benzodiazepine/Flexeril/Phenergan) 1. You have been prescribed narcotic medications, it does have acetaminophen/Tylenol/paracetamol in it so do not take extra Tylenol or Tylenol containing products 2. Please understand that we cannot provide further refills of narcotics, marilee odiazepines or controlled substances through the ED and her pain management will need to be through your provider. 3. While on these medications you cannot drive or operate heavy machinery. 4. You cannot sign legal documents or perform any duties such as this. 5. As long as you're taking opiate pain medications he should also be taking a stool softener such as Colace, Dulcolax, MiraLAX or prune juice, to help avoid constipation. Prescriptions: New hydrocodone-acetaminophen [[place]] 5-325 mg tablet 0.5 tab PO Q6H PRN (Reason: pain) Qty: 10 RF: 0 No Action [DGL supplement] 2 cap PO QDAY Qty: 0 RF: 0 omeprazole 20 mg tablet,delayed release (DR/EC) 20 mg PO Q DAY Qty: 90 RF: 0 hydrocortisone valerate 0.2 % cream 1 applictn TOP BID Qty: 15 RF: 1 cinnamon bark 500 mg capsule 500 mg PO DAILY RF: 0 krill oil 500 mg capsule PO RF: 0 slow niacin PO RF: 0 losartan 50 mg tablet 50 mg PO QDAY Qty: 90 RF: 1 simvastatin 10 mg tablet 10 mg PO HS Qty: 90 RF: 1 coQ10 (ubiquinol) PO RF: 0 olive leaf extract 250 mg capsule 750 mg PO RF: 0 Referrals: Reuben Rosado MD [Primary Care Provider] -
[2018-08-25] MEDS: HYDROCODONE/ACET 5/325 PREPACK 1 BOTTLE MISC (05:10)
[2018-08-25 05:12] VITALS: BP 142/72; PULSE 82; RESP 18; O2SAT 99
== END 2018-08-25 05:13 | disposition home or self-care (01) ==
PROVIDERS: Emergency Provider Emergency Medicine; PCP Student in an Organized Health Care Education/Training Program
DX: R22.1 Localized swelling, mass and lump, neck (principal); Z86.718 Personal history of other venous thrombosis and embolism; R94.31 Abnormal electrocardiogram [ECG] [EKG]
CPT/HCPCS: 36591; 70491; 71260; 80053; 82550; 82553; 83690; 84484; 85025; 93005; 99283; 99285; Q9967

== ENCOUNTER → 2018-08-26 09:43 | Outpatient (CLI) | payer MEDICARE, OTHER, SELFPAY ==
[2018-08-26 11:57] LABS: BUN Creatinine Ratio 22.9 (6-22); Blood Urea Nitrogen 16 mg/dL (9-20); Calcium 9.4 mg/dL (8.4-10.2); Carbon Dioxide 32 mmol/L (22-32); Chloride 98 mmol/L (98-107); Estimated Glomerular Filt Rate > 60.0 mL/min (>60); Glucose 109 mg/dL (80-110); HEMOLYSIS < 15 (0-50); Potassium 4.2 mmol/L (3.4-5.1); Sodium 138 mmol/L (137-145)
[2018-08-28 16:36] LABS: Calcitonin < 2 pg/mL (< 11)
== END ==
PROVIDERS: PCP Student in an Organized Health Care Education/Training Program; Visit Provider Surgery
DX: R22.1 Localized swelling, mass and lump, neck (principal)
CPT/HCPCS: 36415; 80048; 82308

== ENCOUNTER 2018-09-03 06:31 | Day surgery (SDC) | payer MEDICARE, OTHER, SELFPAY ==
[2018-08-27 12:20] VITALS: BMI 42.8
[2018-09-03] VITALS (14 sets, daily range): BP systolic 117–157; BP diastolic 73–99; PULSE 83–106; RESP 8–26; TEMP 35.5–36.9; O2SAT 91–98; BMI 31.7
--- NOTE | 2018-09-03 | PATH_ITS ---
[facility] Accession Number: [id number] . 01 Material submitted: . PART A: larynx - RIGHT LARYNX BIOPSY PART B: gastrointestinal site - GASTRIC FUNDUS POLYP BIOPSY PART C: esophagus - DISTAL ESOPHAGEAL BIOPSY PART D: lymph node - LEFT 4B LYMPH NODE PART E: lymph node - LEFT 4B LYMPH NODE PART F: body - NO SITE DESIGNATED . 02 Diagnosis: A. Right Larynx Biopsy: Superficial portions of squamous mucosa with detached hyperkeratotic fragments and otherwise no significant histomorphologic abnormality. Negative for dysplasia or malignancy. . B. Gastric Fundus Polyp, Biopsy: Portions of gastric fundic polyp. No evidence of Helicobacter organisms on H/E stain. Negative for intestinal metaplasia. Negative for dysplasia and malignancy. . C. Distal Esophageal Biopsy: Inflamed columnar mucosa; negative for intestinal metaplasia/Tong's metaplasia. Negative for dysplasia and malignancy. . D.and E. Left 4B Lymphnode, F. Site and Procedure not Specified: Large cell undifferentiated epithelioid malignancy. Final diagnosis pending immunohistochemical evaluation; results will be reported as an addendum. . . . . . . . . . . . . . . . . . . . . . . . . . . . . . . . . . . . . . . . . . . . . . . I09/05/2018 . 02 Comment: There is no evidence of non-Hodgkin lymphoma by flow cytometric studies; please see separate flow cytometry report [id number] ([facility]). . Message left for Dr. Funes on 09/05/18 at approximately 3:15 p.m. . 02 Electronically signed: . Tori Bro MD, Pathologist NPI- [id number] . 01 Gross description: . (A) Received in formalin, labeled right larynx BX, are multiple fragments of luna-white semi-translucent tissue (0.2 x 0.2 by less than 0.1 cm in aggregate. Filtered and entirely submitted in cassette A1. (B) Received in formalin, labeled gastric fundus polyp biopsy, are three fragments of guzman tissue (0.5 x 0.5 x 0.1 cm in aggregate). Filtered and entirely submitted in cassette B1. (C) Received in formalin, labeled distal esophageal biopsy, are multiple fragments of luna-guzman tissue (0.6 x 0.5 x 0.1 cm in aggregate). Filtered and entirely submitted in cassette C1. (D) Received in B Plus Fix, labeled left IVB lymph node, is a piece of lymph node (1.7 x 1.5 x 0.8 cm). Serially sectioned and entirely submitted in cassettes D1-D2. (E) Received in formalin, labeled left IVB lymph node, is a portion of lymph node (2.9 x 2.8 x 2.0 cm). Serially sectioned and entirely submitted in cassettes E1-E9. (F) Received unfixed is a portion of lymph node (3.0 x 2.9 x 0.7 cm). Serially sectioned and entirely submitted in cassettes F1-F4. . Note: Also received are two wet slides, two dry slides, and two vials with tissue in RPMI. ([id number]) /MRV . 02 Pathologist provided ICD-10: C76.0 . 02 CPT . 852217, 950641, 751379, 957050, 557285, 644075 Performed at: 01 [facility] [address] [id number] MD Arian Mills MD Phone: [phone] Performed at: 02 [facility] [place] [address] [place], [place] [id number] MD Amita Zuniga MD Phone: [phone]
[2018-09-03] MEDS: LACTATED RINGERS 1,000 ML 42 ML IV (07:27)
[2018-09-03] MEDS: CEFAZOLIN 2 GM/100 ML FROZ.PIGGY IV (08:15)
--- NOTE | 2018-09-03 09:06 | SUR.OPER ---
Supine on padded OR bed, head on pillow, arm padded and tucked at side, legs uncrossed, safety belt at thigh, tape over blanket over lower legs .
[2018-09-03] MEDS: BUPIVACAINE 0.25% W/ EPI 30 ML VIAL INJ (10:21)
--- NOTE | 2018-09-03 11:57 | SUR.PHASEI ---
1145 RECIEVED PT AND REPORT FROM ELI AZUL, PT IS RESTING QUIETLY WITH O2 AT 3LNC, LUNGS ARE CLEAR, RIGHT FACIAL DROOP NOTED, DR CHRISTIANSEN IN TO ASSESS PT, WILL CONTINUE TO OBSERVE. PT DENIES ANY PAIN IN OPERATIVE SITE AT THIS TIME, HAND GRASPS EQUAL AND STRONG, LUNG SOUNDS ARE CLEAR BILATERALLY, PT HAS WEAK COUGH AND IS ABLE TO SWALLOW AND CLEAR HIS SECRETIONS, VOICE IS WEAK AND SLIGHTLY SLURRED. DR ALCARAZ IN TO SPEAK WITH PT. REPORT TO TRANSMITTER CHIEF GIVEN BY ELI AZUL , WILL TRANSPORT PT TO ICU WITH RN, O2 AND MONITOR.
--- NOTE | 2018-09-03 12:07 | PM.HP.1 ---
History of Present Illness Date Patient Seen: 09/03/18 Time Patient Seen: 07:40 Chief complaint: [id number] Narrative: Patient seen and examined Unchanged since recent clinic point Risks of surgery including need for emergent tracheostomy if airway compromise discussed Plan for triple endoscopy, nasopharyngioscopy, and excisional lymphnode biopsy of L neck Patient History Medical History (Updated 08/28/18 @ 12:20 by Viola Aponte RN) Abnormal CT scan, neck (Chronic) Mediastinal mass (Chronic) Vocal cord paralysis (Chronic) BPH loc w urin obs/LUTS (Acute) Difficulty swallowing (Acute) Hiatal hernia (Acute) GERD (gastroesophageal reflux disease) (Chronic Unknown) Gout (Chronic Unknown) Hyperlipemia (Chronic Unknown) Hypertension (Chronic Unknown) Chickenpox (Resolved) Hemorrhoids (Resolved Unknown) Hx of cardiac arrhythmia (Resolved Unknown) Hx of deep venous thrombosis (Resolved 01/2016) Measles (Resolved) Mumps (Resolved) Surgical History (Updated 08/28/18 @ 12:18 by Viola Aponte RN) Hx of bilateral cataract extraction (Acute ~2015) History of tonsillectomy and adenoidectomy (Resolved Unknown) Hx of appendectomy (Resolved Unknown) Hx of bilateral inguinal hernia repair (Resolved 12/2016) Family History Sister Cancer Family/Other Cancer Social History marital status: household members: spouse occupational status: previously employed Smoking Status: Never smoker alcohol intake: never substance use type: does not use Family & Social History Social History: household members spouse Tobacco & Substance use: Smoking Status Never smoker alcohol intake never alcohol intake frequency 0-2 drinks per day Substance Use Type does not use Meds Home Medications Medication Instructions Recorded Confirmed Type [DGL supplement] 2 cap PO QDAY #0 06/08/16 08/26/18 History coQ10 (ubiquinol) 1 tab PO DAILY 10/16/17 09/03/18 History olive leaf extract 250 mg capsule 750 mg PO DAILY cap 10/16/17 09/03/18 History cinnamon bark 500 mg capsule 500 mg PO DAILY 06/05/18 09/03/18 History hydrocortisone valerate 0.2 % 1 applictn TOP BID #15 gram 06/05/18 08/27/18 Rx topical cream krill oil 500 mg capsule 500 mg PO DAILY cap 06/05/18 09/03/18 History losartan 50 mg tablet 50 mg PO QDAY #90 tab 06/05/18 09/03/18 Rx niacin 50 mg tablet 500 mg PO DAILY 06/05/18 09/03/18 History difluprednate [Durezol] 1 drp EYE-RIGHT TID 09/03/18 09/03/18 History simvastatin 10 mg PO BEDTIME 09/03/18 09/03/18 History Allergies Allergy/AdvReac Type Severity Reaction Status Date / Time No Known Drug Allergies Allergy Verified 09/03/18 07:11 Exam Vital Signs (past 8 hours): - 09/03/18 07:18 09/03/18 11:38 09/03/18 11:45 Temperature 98.4 F 97.1 F L 97.4 F L Pulse Rate 87 86 83 Respiratory Rate 16 16 24 Blood Pressure 154/88 H 119/78 117/75 Pulse Oximetry 98 93 93 09/03/18 11:55 Temperature Pulse Rate 86 Respiratory Rate 24 Blood Pressure 129/81 Pulse Oximetry 91 Oxygen Delivery Method Nasal Cannula Oxygen Flow Rate 3
--- NOTE | 2018-09-03 12:10 | PM.OP.1 ---
Operative Date/Time/Diagnoses Date of procedure: 09/03/18 Time of procedure: 12:11 Pre-op diagnosis: Neck cancer with lymph node involvement Post-op diagnosis: same Procedure & Clinicians Procedure: 1) Attempted Direct laryngoscopy 2) bronchoscopy 3) R laryngeal biopsy 4) EGD with gastric polyp biopsies and esophageal biopsy 5) flexable nasopharyngoscopy 6) excisional biopsy of pathologically enlarged L 5B/4 biopsy Same procedure as scheduled: Yes Surgeon: Sesar Funes Shoemaking Finisher: Stormy Babinr Click Yes if Unassisted: No Anesthesia Type: General Operative Notes Findings: 1) with sedation unable to perform direct laryngoscopy due to lack of neck extension and limited jaw mobility 2) larynx was reasonably viewed during glide scope intubation as well as by flexible bronchoscope inserted through oral cavity to inspect larynx and hypopharynx -very questionable lesion visualized on the right -this was biopsied 3) no airway stenosis above the cords or below the cord -no lesions visualized on bronchoscopy 4) on EGD numerous polyps within the fundus -status post biopsy of 2 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 6) complete excisional biopsy of markedly enlarged Left deep inferior cervical LN at Level Vb, IV boundary Closure Type: primary Specimen(s): other (1) R larynx biopsy, 2) gastric polyps 3) esophagus bx 4) Left level 4/5B LN) Prosthetic devices, grafts, tissues, transplants, or devices: none Estimated Blood Loss (mL): 3 Blood products transfused: none Procedure in detail: Patient was brought to the operating room time-out was completed. A shoulder roll was placed his head was extended. He was sedated with propofol drip. His upper incisors were protected with a mouth guard. A direct laryngoscope was advanced through the oral cavity be on the tongue and into the oropharynx. We were unable to obtain good visualization of the larynx despite multiple maneuvers including repositioning head and neck alignment as well as manipulation of the anterior neck structures to move into view. It was clear is that given the limited amount mandibular mobility and small mouth in conjunction with limited neck extension inline visualization of larynx was not possible. A pediatric scope was also utilized to attempt visualization. At this point the patient was intubated with a glide scope. I carefully watch the glide scope intubation and had anesthesia hold once they had the critical view of the cord structures. I inspected the cords, epiglottis, arytenoids -no lesions were identified. In 8-0 ET tube was placed. Of note there was no supra or subglottic stenosis identified. I then proceeded with a bronchoscopy. The bronchoscope was advanced through the endotracheal tube into the trachea the trachea was inspected as was the right and left bronchial tree no lesions were identified. Quite carefully the endotracheal tube was withdrawn to the level of the cords to allow for inspection the superior trachea as well as the hypoglottus -the structures were widely open without stenosis. No mucosal based lesions were identified. Then proceeded to withdraw the bronchoscope out of the endotracheal tube I then inserted into the oral cavity and advanced into the hypopharynx -I inspected both vallecula -I was unable to get a good view of the lingular tonsil. On the right side of the larynx was the some pearly white changes which were subtle -these were biopsied using a bronchial biopsy forceps. We then proceeded with an EGD -a flexible endoscope was advanced through the oral airway into the esophagus which I will much difficult, it was advanced into the stomach and to the level of pylorus. The duodenum was not intubate. Slowly withdrawing there was healthy rugae a about the stomach. There approximately 1 dozen polyps within the fundus -these were inspected and appeared benign -a hardware supplies sales representative biopsy was taken of 2 of the larger polyps. Then withdrew the scope further there was a large type 1 paraesophageal hernia with the hiatus located at 40 cm and the Z-line located at 23 cm from the incisors. Just below the Z-line there was an area tissue that was significantly more erythematous with disorganized vasculature. This was biopsied. I then slowly withdrew the scope for the remainder of the esophagus no additional lesions were identified. We then proceeded to perform the nasopharyngeal scope-and intubating flexible scope was advanced through both nares inspecting the turbinates, nasal sinuses and nasopharynx. Great care was taken to have a good view of each of the orifices of the eustachian tubes visualized. No areas of polyps or lesions were identified. We then proceeded to perform an excisional biopsy of a very large I believe deep inferior cervical lymph node -just under the lateral margin of the membrane is portion of the left sternocleidomastoid. A extensible incision paralleling the lateral border of the SCM was made over the obvious palpable lymph. The platysma was divided. The edge of the sternocleidomastoid was identified and retracted anteriorly. Just superficial to the lymph node capsule plane was easily identified. This plane was followed progressively shelling the lymph node out from the adjacent tissues. There are numerous feeding vessels into the large pathologic lymph node -these were ligated with 3 0 silk suture and at times wet clips. Staying on the capsule to avoid deeper structures. The lymph node was freed and delivered out of the wound. It measured 3.5 x 5 cm. The wound was irrigated hemostasis was ensured and wound was closed using a deep dermal layer and running subcuticular. Skin glue was applied Patient was extubated and brought to PACU without incident. The pathologic lymph node was portion to multiple sections sent for flow cytometry, pathology, multiple cultures. Complications: none Condition: stable Disposition: PACU Plan for aftercare: Likely will stay overnight
--- NOTE | 2018-09-03 12:13 | P.OP_ITS ---
Operative Date/Time/Diagnoses Date of procedure: 09/03/18 Time of procedure: 12:11 Pre-op diagnosis: Neck cancer with lymph node involvement Post-op diagnosis: same Procedure & Clinicians Procedure: 1) Attempted Direct laryngoscopy 2) bronchoscopy 3) R laryngeal biopsy 4) EGD with gastric polyp biopsies and esophageal biopsy 5) flexable nasopharyngoscopy 6) excisional biopsy of pathologically enlarged L 5B/4 biopsy Same procedure as scheduled: Yes Surgeon: Sesar Funes Data Collection Interviewer: Stormy Babinr Click Yes if Unassisted: No Anesthesia Type: General Operative Notes Findings: 1) with sedation unable to perform direct laryngoscopy due to lack of neck extension and limited jaw mobility 2) larynx was reasonably viewed during glide scope intubation as well as by flexible bronchoscope inserted through oral cavity to inspect larynx and hypopharynx -very questionable lesion visualized on the right -this was biopsied 3) no airway stenosis above the cords or below the cord -no lesions visualized on bronchoscopy 4) on EGD numerous polyps within the fundus -status post biopsy of 2 abrasives sales representative polyps, very type 1 paraesophageal hernia -just distal to the Z- line area of mucosa with irregular vasculature -this was biopsied 5) no lesions identified within the nasopharynx or nasal sinus excellent views were obtained of nasopharyngeal openings of bilateral eustachian tubes - no lesions identified. 6) complete excisional biopsy of markedly enlarged Left deep inferior cervical LN at Level Vb, IV boundary Closure Type: primary Specimen(s): other (1) R larynx biopsy, 2) gastric polyps 3) esophagus bx 4) Left level 4/5B LN) Prosthetic devices, grafts, tissues, transplants, or devices: none Estimated Blood Loss (mL): 3 Blood products transfused: none Procedure in detail: Patient was brought to the operating room time-out was completed. A shoulder roll was placed his head was extended. He was sedated with propofol drip. His upper incisors were protected with a mouth guard. A direct laryngoscope was advanced through the oral cavity be on the tongue and into the oropharynx. We were unable to obtain good visualization of the larynx despite multiple maneuvers including repositioning head and neck alignment as well as manipulation of the anterior neck structures to move into view. It was clear is that given the limited amount mandibular mobility and small mouth in conjunction with limited neck extension inline visualization of larynx was not possible. A pediatric scope was also utilized to attempt visualization. At this point the patient was intubated with a glide scope. I carefully watch the glide scope intubation and had anesthesia hold once they had the critical view of the cord structures. I inspected the cords, epiglottis, arytenoids -no lesions were identified. In 8-0 ET tube was placed. Of note there was no supra or subglottic stenosis identified. I then proceeded with a bronchoscopy. The bronchoscope was advanced through the endotracheal tube into the trachea the trachea was inspected as was the right and left bronchial tree no lesions were identified. Quite carefully the endotracheal tube was withdrawn to the level of the cords to allow for inspection the superior trachea as well as the hypoglottus -the structures were widely open without stenosis. No mucosal based lesions were identified. Then proceeded to withdraw the bronchoscope out of the endotracheal tube I then inserted into the oral cavity and advanced into the hypopharynx -I inspected both vallecula -I was unable to get a good view of the lingular tonsil. On the right side of the larynx was the some pearly white changes which were subtle - these were biopsied using a bronchial biopsy forceps. We then proceeded with an EGD -a flexible endoscope was advanced through the oral airway into the esophagus which I will much difficult, it was advanced into the stomach and to the level of pylorus. The duodenum was not intubate. Slowly withdrawing there was healthy rugae a about the stomach. There approximately 1 dozen polyps within the fundus -these were inspected and appeared benign -a abrasives sales representative biopsy was taken of 2 of the larger polyps. Then withdrew the scope further there was a large type 1 paraesophageal hernia with the hiatus located at 40 cm and the Z-line located at 23 cm from the incisors. Just below the Z-line there was an area tissue that was significantly more erythematous with disorganized vasculature. This was biopsied. I then slowly withdrew the scope for the remainder of the esophagus no additional lesions were identified. We then proceeded to perform the nasopharyngeal scope-and intubating flexible scope was advanced through both nares inspecting the turbinates, nasal sinuses and nasopharynx. Great care was taken to have a good view of each of the orific es of the eustachian tubes visualized. No areas of polyps or lesions were identified. We then proceeded to perform an excisional biopsy of a very large I believe deep inferior cervical lymph node -just under the lateral margin of the membrane is portion of the left sternocleidomastoid. A extensible incision paralleling the lateral border of the SCM was made over the obvious palpable lymph. The platysma was divided. The edge of the sternocleidomastoid was identified and retracted anteriorly. Just superficial to the lymph node capsule plane was easily identified. This plane was followed progressively shelling the lymph node out from the adjacent tissues. There are numerous feeding vessels into the large pathologic lymph node -these were ligated with 3 0 silk suture and at times wet clips. Staying on the capsule to avoid deeper structures. The lymph node was freed and delivered out of the wound. It measured 3.5 x 5 cm. The wound was irrigated hemostasis was ensured and wound was closed using a deep dermal layer and running subcuticular. Skin glue was applied Patient was extubated and brought to PACU without incident. The pathologic lymph node was portion to multiple sections sent for flow cytometry, pathology, multiple cultures. Complications: none Condition: stable Disposition: PACU Plan for aftercare: Likely will stay overnight
--- NOTE | 2018-09-03 12:25 | SUR.PHASEI ---
PT TO ICU, HAND OFF OF CARE TO ELI JASSO.
--- NOTE | 2018-09-03 13:36 | PC.ADMIT ---
DECLINED 10/26/[address] Admission Note: The patient,Jim Can,68 y/o, was given written information regarding hospital policies, unit procedures and contact persons. Patient's smoking status: Never smoker. Vital Signs - 8 hr 09/03/18 07:18 09/03/18 11:38 09/03/18 11:45 Temperature 98.4 F 97.1 F L 97.4 F L Pulse Rate 87 86 83 Respiratory Rate 16 16 24 Blood Pressure 154/88 H 119/78 117/75 Pulse Oximetry 98 93 93 09/03/18 11:55 09/03/18 12:05 Temperature Pulse Rate 86 87 Respiratory Rate 24 26 H Blood Pressure 129/81 134/73 Pulse Oximetry 91 93 Rec'd pt from PACU to room 103 at 1218. Pt is awake/alert/oriented x3 and making needs known with clear, delayed speech. Admission assessment and physical assessment complete. Called to Dr. Funes and requested admission orders as none are available at this time. SR on tele. VSS. Provided mouth swabs for comfort. Oriented pt and family to room and ICU routine. Educated to use of call light and fall risk.
[2018-09-03] MEDS: LACTATED RINGERS 1,000 ML 84 ML IV (14:44)
[2018-09-03] MEDS: DIFLUPREDNATE 1 EACH EYE-RIGHT ×2 (15:25→20:13)
[2018-09-03] MEDS: LOSARTAN 25 MG TABLET PO (16:35)
--- NOTE | 2018-09-03 18:17 | PM.PN.1 ---
Subjective Date Patient Seen: 09/03/18 Time Patient Seen: 18:17 Interval history: Pt well no pain thirsty No subjective difficulty breathing Exam Vital Signs (past 8 hours): - 09/03/18 11:38 09/03/18 11:45 09/03/18 11:55 Temperature 97.1 F L 97.4 F L Pulse Rate 86 83 86 Respiratory Rate 16 24 24 Blood Pressure 119/78 117/75 129/81 Pulse Oximetry 93 93 91 09/03/18 12:05 09/03/18 12:15 09/03/18 12:50 Temperature 96.4 F L 96 F L Pulse Rate 87 90 89 Respiratory Rate 26 H 14 20 Blood Pressure 134/73 145/83 H 150/89 H Pulse Oximetry 93 94 96 09/03/18 13:00 09/03/18 13:30 09/03/18 14:00 Temperature Pulse Rate 91 H 90 90 Respiratory Rate 21 20 24 Blood Pressure 157/85 H 148/99 H 155/89 H Pulse Oximetry 94 94 95 09/03/18 14:30 09/03/18 16:00 Temperature Pulse Rate 99 H Respiratory Rate 26 H Blood Pressure 147/90 H Pulse Oximetry 96 95 Oxygen Delivery Method Nasal Cannula Oxygen Flow Rate 0 Narrative Exam Narrative: Well appering no stridor weaned to RA wound CDI. Objective Labs Labs: Laboratory Results - last 24 hr 09/03/18 12:40 Nasal Screen MRSA (PCR) Negative for mrsa Assessment & Plan Assessment & Plan narrative: 68-year-old man postop day 0 status post attempted direct laryngoscopy, bronchoscopy, esophagoscopy, nasopharyngoscopy, and L deep inferior cervical LN family quite concerned about pt. Though he clinically appears quite well Plan: Outpatient in bed overnight Can leave ICU no airway difficulties -transfer orders completed Okay for full liquid diet Quality VTE Deep Vein Thrombosis/Pulmonary Embolism Present on Admission: No
[2018-09-03] MEDS: SIMVASTATIN 10 MG TABLET PO (20:12)
[2018-09-03] MEDS: HEPARIN 5,000 UNIT/ML VIAL 5000 UNIT SUBCUT (21:34)
[2018-09-04] VITALS (7 sets, daily range): BP systolic 137–150; BP diastolic 77–92; PULSE 74–81; RESP 18–20; TEMP 36.2–36.9; O2SAT 91–94; BMI 31.7
[2018-09-04] MEDS: LACTATED RINGERS 1,000 ML 84 ML IV (06:11)
[2018-09-04] MEDS: HEPARIN 5,000 UNIT/ML VIAL 5000 UNIT SUBCUT (06:51)
[2018-09-04] MEDS: DIFLUPREDNATE 1 EACH EYE-RIGHT (06:59)
--- NOTE | 2018-09-04 07:07 | PC.NURSE ---
NOC Shift: Pt rested well throughout shift w/o problems, denied pain, no breathing problems noted midline trachea. Sats stable >90% on room air. VSS. Pt ambulating to bathroom w/1 PA due to unsteady gait. Taking clear liquids no problems. Possible discharge today.
[2018-09-04] MEDS: LOSARTAN 50 MG TABLET 25 MG PO (08:31)
--- NOTE | 2018-09-04 08:33 | PC.NURSE ---
Addendum entered by Jazzy Osborn R.N. 09/04/18 11:12: pts spouse came out anxious stating that pt had a pain in left leg when assessed and questioned pt declined any pain, and any tylenol or oxycodone - also declined to repostion in bed Original Note: pt quiet but oriented - denies pain and is tolerating full liquids well- left neck slightly tender at incisional site but denies need for pain rx- some noted swelling at site no drainage.
--- NOTE | 2018-09-04 09:52 | CM.DANOTE ---
DCP: Case received, EMR reviewed and met with patient. Introduced self and role. Was able to obtain baseline history from spouse and patient. DCP template assessment completed with information currently available. Patient is a 68 year old male who admitted yesterday to the care of the surgical team. PCP: Dr. Rosado. Payer: Medicare/[facility]. Patient came to hospital for surgical procedure. He had Laryngoscopy, Bronchoscopy, as well as Larygeal Biopsy. Patient has history of neck cancer with lymph node involvement. Met briefly with patient in room. He was sitting up in chair, alert and oriented. , Juanito, at bedside. Confirmed with that they both reside at [facility], and is supportive. P: DCP to continue to follow closely. Patient should be able to go back to [facility] when he is medically stable. Monica Pfeiffer RN/Cartridge [employer]
--- NOTE | 2018-09-04 14:06 | PM.PN.1 ---
Subjective Date Patient Seen: 09/04/18 Time Patient Seen: 14:06 Interval history: Well breathing comfortably No complaints baseline swallowing difficulty Exam Vital Signs (past 8 hours): - 09/04/18 07:38 09/04/18 07:55 09/04/18 12:48 Temperature 98.4 F Pulse Rate 81 81 Respiratory Rate 18 18 Blood Pressure 148/92 H 150/77 H Pulse Oximetry 93 94 93 Oxygen Delivery Method Room Air Oxygen Flow Rate 0 Narrative Exam Narrative: neck wound CDI no stridor looks well abd soft Objective Labs Labs: Laboratory Results - last 24 hr 09/03/18 12:40 Nasal Screen MRSA (PCR) Negative for mrsa Assessment & Plan Assessment & Plan narrative: 68 yo man s/p triple endoscopy and nasopharyngioscopy with large cervical LN excision on L. kept overnight to ensure breathing well OK for d/c home Quality VTE Deep Vein Thrombosis/Pulmonary Embolism Present on Admission: No
--- NOTE | 2018-09-04 14:21 | PC.NURSE ---
discharged to home with review of plan of care and follow up plan- iv removed and answered all questions to their satisfaction
== END 2018-09-04 14:28 | disposition home or self-care (01) ==
LOC: OR 07:30 → ICU 13:22
PROVIDERS: PCP Student in an Organized Health Care Education/Training Program; Visit Provider Surgery
PROC: 0BJ08ZZ Inspection of Tracheobronchial Tree, Via Natural or Artificial Opening Endoscopic (ICD-10-PCS; CPT 31622; principal; 2018-09-03 07:45)
PROC: (CPT 38500; 2018-09-03 07:45)
DX: C76.0 Malignant neoplasm of head, face and neck (principal); C77.0 Secondary and unspecified malignant neoplasm of lymph nodes of head, face and neck; K31.7 Polyp of stomach and duodenum; K20.9 Esophagitis, unspecified; K44.9 Diaphragmatic hernia without obstruction or gangrene; I10 Essential (primary) hypertension; E78.5 Hyperlipidemia, unspecified; K21.9 Gastro-esophageal reflux disease without esophagitis; N40.0 Benign prostatic hyperplasia without lower urinary tract symptoms; Z77.22 Contact with and (suspected) exposure to environmental tobacco smoke (acute) (chronic)
CPT/HCPCS: 38500; 31625; 43239; 87070; 87075; 87077; 87102; 87116; 87176; 87186; 87205; 87797; 88305; 88341; 88342; J0330; J0690; J1100; J1644; J2250; J2405; J2704; J3010

== ENCOUNTER → 2018-09-18 13:46 | Outpatient (CLI) | payer MEDICARE, OTHER, SELFPAY ==
[2018-09-03 12:42] VITALS: BMI 31.7
--- NOTE | 2018-09-18 13:49 | DI.CT.S_ITS ---
PROCEDURE: CT ABDOMEN PELVIS W CON INDICATIONS: eval renal cell carcinoma TECHNIQUE: After the administration of intravenous contrast, 5 mm thick sections acquired from the diaphragm to the symphysis. 5 mm coronal and sagittal reformats were acquired. For radiation dose reduction, the following was used: automated exposure control, adjustment of mA and/or kV according to patient size. COMPARISON: [facility], CT, CT SOFT TISSUE NECK W CON, 08/25/2018, 2:21. [facility], CT, CT CHEST W CON, 07/29/2018, 13:17. [facility], US, US FINE NEEDLE ASPIRATION, 08/12/2018, 9:18. [facility], CT, CT CHEST W CON, 08/25/2018, 2:21. FINDINGS: Image quality: Excellent. ABDOMEN: Lung bases: There are masses in the right lower lobe, demonstrating mild interval enlargement. Heart size is normal. There is a large hiatal hernia. Solid organs: Liver is normal in size and enhancement. Gallbladder is normal. Biliary system is non dilated. Pancreas enhances normally. Spleen is normal in size and enhancement. No adrenal nodules. Kidneys demonstrate normal size and enhancement, without hydronephrosis. No renal masses. Peritoneum and bowel: Bowel loops demonstrate normal wall thickness and caliber. No free fluid or air. Nodes and vessels: No retroperitoneal or mesenteric adenopathy by size criteria. Aorta and inferior vena cava are normal in size. Miscellaneous: No ventral hernias. PELVIS: Genitourinary: There is anterior bladder wall thickening without definitive mass. Prostate is enlarged. There is a 1.9 cm low-density nodule in the peripheral aspect of the left prostate. Miscellaneous: No inguinal hernias or adenopathy. Bones: There is a 1.5 cm lytic lesion in left sacral body suspicious for metastasis. No vertebral body compression fractures. Severe degenerative changes in lumbar spine. IMPRESSION: 1. No renal mass is identified on CT. 2. No lymphadenopathy in abdomen or pelvis. 3. Lung masses are partially visualized in the right lung base, compatible with pulmonary metastases. The masses are slightly enlarged since the last chest CT on 08/25/2018. 4. A 1.5 cm lytic lesion in the left sacral body suspicious for metastasis. 5. Mild anterior bladder wall thickening without discrete bladder mass. If clinically indicated, urology consultation and cystoscopy may be performed 6. Large hiatal hernia. 7. Enlarged prostate. There is a 1.9 cm low density nodule in the left prostate. Dictated by: Margo Shukla M.D. on 09/18/2018 at 16:25 Approved by: Margo Shukla M.D. on 09/18/2018 at 16:49
[2018-09-18 14:23] LABS: BUN Creatinine Ratio 18.8 (6-22); Blood Urea Nitrogen 15 mg/dL (9-20); Estimated Glomerular Filt Rate > 60.0 mL/min (>60)
== END ==
LOC: CT 13:48 → LAB 13:48
PROVIDERS: PCP Student in an Organized Health Care Education/Training Program; Visit Provider Surgery
DX: C80.1 Malignant (primary) neoplasm, unspecified (principal)
CPT/HCPCS: 36415; 74177; 82565; 84520; Q9967

== ENCOUNTER 2018-09-29 08:16 | Day surgery (SDC) | payer MEDICARE, OTHER, SELFPAY ==
[2018-09-03 12:42] VITALS: BMI 31.7
[2018-09-26 11:09] VITALS: BMI 42.8
[2018-09-29] VITALS (9 sets, daily range): BP systolic 119–151; BP diastolic 74–90; PULSE 75–98; RESP 15–26; TEMP 36.1–36.9; O2SAT 92–98; BMI 28.9
--- NOTE | 2018-09-29 | DI.RAD.S_ITS ---
PROCEDURE: XR CHEST 1V INDICATIONS: PORT A CATH TECHNIQUE: One view of the chest was acquired. COMPARISON: [facility], NM, NM PET CT FUSION SKULL 2 THIGH, 09/24/2018, 14:49. [facility], CT, CT ABDOMEN PELVIS W CON, 09/18/2018, 15:13. [facility], CR, CHEST 2 VIEW, 05/08/2012, 1:25. FINDINGS: Surgical changes and devices: Port-A-Cath from a right-sided approach extends into the distal SVC. Lungs and pleura: Lungs are abnormal, with multiple lobulated masses bilaterally, also seen by prior PET CT scanning 09/24/18.. No pleural effusions or pneumothorax. Mediastinum: Mediastinal contours appear normal. Heart size is normal. Bones and chest wall: No suspicious bony lesions. Overlying soft tissues appear unremarkable. IMPRESSION: Port-A-Cath in normal position a right-sided approach, no pneumothorax after procedure. Large lobulated masses within the lungs bilaterally [id number] on study performed 09/24/18. Dictated by: Brian Almanza M.D. on 09/29/2018 at 16:03 Approved by: Brian Almanza M.D. on 09/29/2018 at 16:06
--- NOTE | 2018-09-29 | PATH_ITS ---
[facility] Accession Number: [id number] . 01 Material submitted: . lymph node - RIGHT AXILLARY LYMPH NODE LEVEL 1 . 01 Diagnosis: Right Axillary Lymph Node, Level I, Excision: Large cell undifferentiated carcinoma; please see comment. MRV/10/02/2018 . 01 Comment: The malignancy seen in the current specimen has a morphology and immunophenotype essentally identical to the previous case ([id number]). Upon clinical request, the [employer] molecular assay will be performed, and results issued in an addendum. . 01 Electronically signed: . Raza Pisano MD, PhD, Pathologist NPI- [id number] . 01 Gross description: . Received in formalin, labeled right axillary lymph node, is a guzman rubbery fatty lymph node (3.2 x 2.5 x 2.0 cm) with a guzman-white hemorrhagic cut surface. Serially sectioned and entirely submitted in cassettes A1-A5. ([id number]) /MRV . 01 Microscopic: . Sections are of lymph node almost entirely replaced by a proliferation of epitheliod cells with a diffuse growth pattern. The neoplastic cells have anaplastic features with variably bizarre and eccentric nucleii and readily identifiable mitotic figures. Areas of geographic necrosis are present. To further evaluate the malignant cells, a limited panel of immunohistochemical stains is performed (each with an appropriately positive control). The neoplastic cells are positive for NU (diffuse), PAX8 (variable) and CK7 (variable) immunoreactivity,and are negative for TTF1, thyroglobulin and CK20 immunoreactivity. The morphology and immunoprofile are very similar to the previous case. . * This test was developed and its performance characteristics determined by [facility]. It has not been cleared or approved by the U.S. Food and Drug Administration. The FDA has determined that such clearance or approval is not necessary. This test is used for clinical purposes. It should not be regarded as investigational or for research. . 01 Pathologist provided ICD-10: R59.9, C77.9 . 01 CPT . 920949, W74599, G21671 Performed at: [address] [facility], [place], [place] [id number] MD Arian Mills MD Phone: [phone]
[2018-09-29] MEDS: LACTATED RINGERS 1,000 ML 100 ML IV (09:20)
[2018-09-29] MEDS: HEPARIN 5,000 UNIT/ML VIAL 5000 UNIT SUBCUT ×2 (09:49→12:50)
--- NOTE | 2018-09-29 09:49 | P.HP_ITS ---
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 In discussing with Medical Oncology -they request to fresh tissue sample to evaluate for biochemical markers, as well as a port for likely chemotherapy. PET scan reviewed -there is a large metastatic FDG avid lymph node in the right axilla On exam this is palpable Plan: Port-A-Cath placement -will 1st attempt on the right side given bulky lymphadenopathy on the left, right axillary level 1, excisional biopsy Risks of procedure including bleeding, infection, nerve injury, air embolus, pneumothorax all discussed Patient History Medical History (Updated 09/26/18 @ 11:19 by Viola Aponte RN) Abnormal CT scan, neck (Chronic) Mediastinal mass (Chronic) Vocal cord paralysis (Chronic) BPH loc w urin obs/LUTS (Acute) Cancer of neck (Acute) Difficulty swallowing (Acute) Hiatal hernia (Acute) GERD (gastroesophageal reflux disease) (Chronic Unknown) Gout (Chronic Unknown) Hyperlipemia (Chronic Unknown) Hypertension (Chronic Unknown) Chickenpox (Resolved) Hemorrhoids (Resolved Unknown) Hx of cardiac arrhythmia (Resolved Unknown) Hx of deep venous thrombosis (Resolved 01/2016) Measles (Resolved) Mumps (Resolved) Surgical History (Updated 09/26/18 @ 11:18 by Viola Aponte, RN) Hx of bilateral cataract extraction (Acute ~2015) S/P bronchoscopy with biopsy (Acute 09/03/18) History of tonsillectomy and adenoidectomy (Resolved Unknown) Hx of appendectomy (Resolved Unknown) Hx of bilateral inguinal hernia repair (Resolved 12/2016) Family History (Updated 09/25/18 @ 14:38 by Pawan Waggoner MD) Sister Cancer Family/Other Cancer Family/Other Colon cancer Social History marital status: household members: spouse occupational status: previously employed Smoking Status: Never smoker alcohol intake: never substance use type: does not use Family & Social History Family History (Updated 09/25/18 @ 14:38 by Pawan Waggoner MD) Sister Cancer Family/Other Cancer Family/Other Colon cancer Social History: household members spouse Tobacco & Substance use: Smoking Status Never smoker alcohol intake never alcohol intake frequency 0-2 drinks per day Substance Use Type does not use Meds Home Medications Medication Instructions Recorded Confirmed Type hydrocortisone valerate 0.2 % 1 applictn TOP BID #15 gram 06/05/18 09/25/18 Rx topical cream losartan 50 mg tablet 50 mg PO QDAY #90 tab 06/05/18 09/29/18 Rx Durezol 1 drp EYE-RIGHT TID 09/03/18 09/29/18 History simvastatin 10 mg PO BEDTIME 09/03/18 09/29/18 History Citracal Regular 1 cap PO DAILY 09/25/18 09/29/18 History Allergies Allergy/AdvReac Type Severity Reaction Status Date / Time No Known Drug Allergies Allergy Verified 09/29/18 09:09 Exam Vital Signs (past 8 hours): - 09/29/18 09:13 Temperature 98.5 F Pulse Rate 98 H Respiratory Rate 15 Blood Pressure 128/84 Pulse Oximetry 98 Oxygen Delivery Method Room Air
[2018-09-29] MEDS: CEFAZOLIN 2 GM/100 ML FROZ.PIGGY IV (12:00)
--- NOTE | 2018-09-29 12:37 | SUR.OPER ---
Supine on padded OR bed, head on pillow, arms secured on padded arm boards at <90 degrees abduction, legs uncrossed, safety belt at thigh, tape over blanket over lower legs. gell axillary rool under bilateral scapulae
[2018-09-29] MEDS: BUPIVACAINE 0.25% W/ EPI 30 ML VIAL INJ (12:49)
--- NOTE | 2018-09-29 13:55 | PM.OP.1 ---
Operative Date/Time/Diagnoses Date of procedure: 09/29/18 Time of procedure: 13:55 Pre-op diagnosis: metastatic epithelioid cancer Post-op diagnosis: same Procedure & Clinicians Procedure: 1. Totally implanted port placement -right internal jugular 2. Excisional biopsy of level 1 pathologically enlarged lymph node on the right Same procedure as scheduled: Yes Indications: 68-year-old man with undifferentiated large cell epithelial cancer -pathology somewhat suggestive of anaplastic thyroid, however, patient has been alive for over 15 months with this tumor -making this less likely. He was recently seen by Oncology who requested additional fresh tissue for a [employer] Advanced to asses possibility of targeted therapy. A port for chemo also requested. Surgeon: Sesar Funes Click Yes if Unassisted: Yes Anesthesia Type: General Operative Notes Findings: Enlarged at least partially necrotic level I R lymph node - additional adjacent enlarged LN taken as well Port placed without incidence Closure Type: primary Specimen(s): other (Level I R axillary LN) Prosthetic devices, grafts, tissues, transplants, or devices: PortaCath Estimated Blood Loss (mL): 10 Procedure in detail: Patient was brought to the operating room his intubated without incident he was prepped and draped in usual sterile fashion a time-out was completed. I initially started with placement of the totally implanted port. an initial attempt was made to place a subclavian line on the right side. A spot 2 cm lateral and 2 cm inferior to the convexity of the clavicle was identified. The patient was placed in steep Trendelenburg position. A needle was advanced toward the sternal notch under the clavicle while aspirating on the connected syringe. This was done for for past moving progressively more superior. There is no flash of blood. As a consequence this approach was stopped and we proceeded to perform right internal jugular. An ultrasound was brought onto the field via sterile probe cover the internal jugular vein was easily identified on the right neck as a large lateral compressible structure adjacent to the carotid artery. Under direct ultrasound guidance the needle was advanced into the vein until a flash of blood was obtained. The syringe was removed. The blood was dark and nonpulsatile. A wire was then threaded without difficulty. Using fluoroscopy the wire was confirmed to extend into the right atrium of the heart and then inferiorly into the inferior vena cava confirming its placement within central venous structures. Then proceeded to make a small port over the right chest. A 4 cm incision was carried down through the skin and subcutaneous tissue a in approximately 1 cm flap was then raised inferiorly creating a small pocket for the reservoir. A small stab incision was made at the neck and enlarged with a snap. Utilizing a tunneler the catheter was then tunneled from the neck stab incision through the subcutaneous tissue over the clavicle and into the port pocket site. A dilator and then sheath were placed into the internal jugular vein -an x-ray confirmed it was directed centrally. The obturator was removed and the catheter was threaded through the sheath. The sheath was then split and removed from the patient. The catheter loop at the neck was then reduced into the neck incision by tugging on the catheter where it exited from the port site. Under fluoroscopy the tip of the catheter was then advanced to the cough all atrial junction. Within the pocket the catheter was cut and attached to the reservoir using the locking ring. The reservoir was then placed into the pocket and sutured to the deep fascia using 2 0 Prolene sutures at the 10:00 a.m. and 2:00 a.m. positions on the port. a single shot confirmed there were no kinks within the catheter. Catheter was then accessed via a Hammonds needle -it aspirated without incident flushed easily and was locked with heparinized saline. Skin was then closed using 2 layer closure with 2 0 deep dermal Vicryl and a running subcuticular stitch. A single deep dermal stitch was used at the neck stab incision. Glue was applied. Then proceeded perform the axillary excisional biopsy. A palpable lymph node was easily identified in the anterior axillary region. A small linear incision was made directly over it. I dissected through the subcutaneous tissue and through the clavicle pectoral fascia without incident readily identifying a purpuric markedly enlarged lymph node. This was dissected free from its sedation tissue. Of note the contents of the lymph node appeared to be at least partially necrotic as a caseous material oozed from the wall. Due to this necrosis and additional lymph node was taken adjacent to the main enlarged 1 which was mildly enlarged but hard. The main lymphatic hilar attachment of these nodes was ligated using 2 0 silk. The cavity was then copiously irrigated. Hemostasis was ensured Skin was then closed using 2 layers with 2 0 Vicryl and monofilament absorbable suture Patient was extubated brought to PACU without incident X-ray and PACU demonstrates a well placed port without pneumothorax and with the tip near the atrial cava junction Complications: none Condition: stable Disposition: PACU
--- NOTE | 2018-09-29 15:12 | SUR.PHASEII ---
pt has some difficulty swalowing but is the same as pre op . expressed concerns about caring for him at home but agrees he's no different than he pre operative state. dr quinn is aware and still supports dc to home
== END 2018-09-29 15:45 | disposition home or self-care (01) ==
PROVIDERS: PCP Student in an Organized Health Care Education/Training Program; Visit Provider Surgery
PROC: (CPT 38500; principal; 2018-09-29 10:00)
PROC: (CPT 38500; 2018-09-29 10:00)
DX: Z45.2 Encounter for adjustment and management of vascular access device (principal); C77.9 Secondary and unspecified malignant neoplasm of lymph node, unspecified
CPT/HCPCS: 38500; 36561; 71045; 76000; 88305; 88341; 88342; C1788; J0330; J0690; J1100; J1644; J2250; J2405; J2704; J3010

== ENCOUNTER → 2018-10-30 10:40 | Oncology outpatient (ONC) | payer MEDICARE, OTHER, SELFPAY ==
[2018-09-03 12:42] VITALS: BMI 31.7
[2018-09-25 13:52] VITALS: BP 136/78; PULSE 85; RESP 18; TEMP 37; O2SAT 96
--- NOTE | 2018-09-25 14:16 | P.CONONC_ITS ---
History of Present Illness - Data of Consult Patient: new to practice Consult date: 09/25/18 Requesting Physician: Reuben Rosado MD Primary Care Provider: Reuben Rosado MD - Consult Narrative Reason for consult: metastatic carcinoma of unknown primary Narrative: Jim Can is a 68 year old male. He presented with progressive hoarseness of the voice beginning early 2017. In Jul, 2017, the patient was evaluated by ENT and confirmed left vocal cord paralysis on flexible laryngoscopy. Imagine then showed superior mediastinal mass in the tracheoesophageal groove on the left side. Patient was afriad of thorat surgery and elected not to pursue evaluation. Eventually, on 10/26/2017, he was evaluated by Solo Hearn, who recommended direct laryngoscopy, esophagoscopy, and bronchoscopy with biopsies potential mediastinoscopy and open neck biopsy to obtain the underlying diagnosis and guide further treatment. However, patient did not pursue further. Nine months later, he went to see Shantel desiring workup and therapy. CT neck on 07/29/2018 showed Enlargement of left superior mediastinal mass with extension into the lower left neck, left level IV metastatic lymphadenopathy, multiple bilateral pulmonary nodules, left tongue base mucosa prominence and irregularity and patulous esophagus concerning for distal esophageal stricture. CT chest on July 29, 2018 showed interval development of numerous bilateral pulmonary metastasis, poorly defined left superior mediastinal lymphadenopathy/soft tissue mass, enlarged right hilar and left supraclavicular lymphadenopathy at a large hiatal hernia. Patient subsequently underwent left supraclavicular lymph node aspiration. The pathology showed positive results for malignancy likely epithelial neoplasm. Differential diagnosis including possibly thyroid neoplasm. On September 03, 2018, Dr. Leyla Waite performed bronchoscopy, right laryngeal biopsy, EGD with gastric polyp biopsies and esophageal biopsy, flexible nasopharyngoscopy, excisional biopsy of the pathologically enlarged level 5B/4 biopsy. pathology showed that samples from left 4B lymph node was large cell undifferentiated epithelial malignancy. And there is no evidence of non- Hodgkin's lymphoma by flow cytometry. 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 The biopsy samples from rest of the anatomic sites showed no malignancy. On September 24, 2018, patient underwent PET scanning. The PET scan showed PET scan showed multiple hypermetabolic left lower cervical, supraclavicular, mediatinal, left hilar, and right axillary lymph nodes, bilateral hypermetabolic lung nodules/masses, subcutaneous nodule in the right perineum, questionable increased uuptake in luis m left colon, small bowel or mesentery, suspicious small mesenteric lymph nodes in the left upper quadrant. He is taking steroid eye drop once a day before the biopsy. He is not taking any oral steroids. He has left neck pain. Ok energy. Family noticed big drop, patient had to use walking stick. he used to be very active bowling. He have not been eating much due to swallowing difficulty. Gag reaction. Had not been able to eat solid food. He lost about 20-30 lbs. He reports a little chest discomfort. He denies abdominal pain, but admit to vomiting sometimes due to gag reaction when swallowing CC: Pawan Waggoner MD Home Medications and Allergies Home Medications Medication Instructions Recorded Confirmed Type hydrocortisone valerate 0.2 % 1 applictn TOP BID #15 gram 06/05/18 09/25/18 Rx topical cream losartan 50 mg tablet 50 mg PO QDAY #90 tab 06/05/18 09/29/18 Rx Durezol 1 drp EYE-RIGHT TID 09/03/18 09/29/18 History simvastatin 10 mg PO BEDTIME 09/03/18 09/29/18 History Citracal Regular 1 cap PO DAILY 09/25/18 09/29/18 History oxycodone See Rx Instructions .ROUTE 09/29/18 Rx .COMPLEX PRN #7 tab Allergies Allergy/AdvReac Type Severity Reaction Status Date / Time No Known Drug Allergies Allergy Verified 09/29/18 09:09 Medical History - Medical, Surgical, Family History Medical History: Medical History (Updated 10/10/18 @ 20:17 by Pawan Waggoner MD) Abnormal CT scan, neck (Chronic) Mediastinal mass (Chronic) Vocal cord paralysis (Chronic) BPH loc w urin obs/LUTS Cancer of neck Difficulty swallowing Hiatal hernia GERD (gastroesophageal reflux disease) Onset Date: Unknown Gout Onset Date: Unknown Hyperlipemia Onset Date: Unknown Hypertension Onset Date: Unknown Chickenpox Hemorrhoids Onset Date: Unknown Hx of cardiac arrhythmia Onset Date: Unknown Hx of deep venous thrombosis Onset Date: 01/2016 Measles Mumps Surgical History: Surgical History (Updated 10/10/18 @ 20:17 by Pawan Waggoner MD) Hx of bilateral cataract extraction Onset Date: ~2015 S/P bronchoscopy with biopsy Onset Date: 09/03/18 History of tonsillectomy and adenoidectomy Onset Date: Unknown Hx of appendectomy Onset Date: Unknown Hx of bilateral inguinal hernia repair Onset Date: 12/2016 Family History: Family History (Updated 09/25/18 @ 14:38 by Pawan Waggoner MD) Sister Cancer Family/Other Cancer Family/Other Colon cancer - Social History Smoking Status: Never smoker Substance Use Type: does not use Alcohol Intake: never Review of Systems - Patient Self-Reported Symptoms SR Constitution: Weight loss/gain, Fatigue/Malaise SR ears, nose, mouth, throat issues: Nose bleeds SR Gastrointestinal issues: Vomiting, Constipation SR Neuro issues: Numbness or tingling Exam Vital signs: Vital Signs Temp Pulse Resp BP Pulse Ox 09/25/18 13:52 98.6 F 85 18 136/78 96 Intake and Output 09/24/18 09/25/18 09/25/18 23:59 07:59 15:59 Other: Weight 93.3 kg Patient Weight 09/25/18 23:59 Weight 93.3 kg Narrative: ECOG 1. patient appears comfortable and not in any acute respiratory distress. He is pleasant and cooperative. Left neck surgical incision wound noted well-healed. palpable lymph nodes noted in the left supraclavicular fossa. lung sounds clear without any wheezes. There is a group of palpable lymph nodes in the right axilla. No lymph nodes in the left axilla. Cardiac sounds normal. Regular rate. Soft abdomen. No tenderness. No lower extremity edema. Patient is awake alert and oriented ?3. Nonfocal. Results - Imaging Additional studies: Procedures CLOSURE SKIN & SUBCUTANEOUS NEC (03/30/09) Injection or infusion of other therapeutic or prophylactic substance (05/21/12) Assessment and Plan (1) Cancer of unknown origin 68-year-old gentleman with a newly diagnosed metastatic carcinoma of lung origin. He presented with worsening hoarseness of voice in early 2017. despite imaging evidence of superior mediastinal mass in the tracheoesophageal groove on the left side, he had been very reluctant to pursue evaluation and treatment until recently when he was seen by Dr. Funes in 10/2018. Left supraclavicular lymph node aspiration was done and positive epithelial neoplasm, but cancer of origin not defined. 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 PET scan showed multiple hypermetabolic left lower cervical, supraclavicular, mediatinal, left hilar, and right axillary lymph nodes, bilateral hypermetabolic lung nodules/masses, subcutaneous nodule in the right perineum, questionable increased uuptake in luis m left colon, small bowel or mesentery, suspicious small mesenteric lymph nodes in the left upper quadrant. In my opinion, the differentials are wide. 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 I favor surgical exisional biopsy of one of the right axillary hyp ermetabolic lymph nodes to obtain fresh tissue for pathological evaluation and also for molecular profiling with [employer]. Hopefully, this will provide more definitive diagnosis and will provide molecular signature that will help us determine the optimal treatment options, for example. targeted therapy and/or immunotherapy. Thank you for involving [facility] the care of Jim Aggarwal.
[2018-09-25 15:58] LABS: Add Manual Diff / Slide Review NO; Basophils Absolute Auto 100 /uL (0-100); Basophils Percent Auto 0.7 % (0-2); Eosinophils Absolute Auto 3000 /uL (0-450); Eosinophils Percent Auto 14.9 % (2-4); Hematocrit 42.8 % (41-53); Lymphocytes Absolute Auto 2300 /uL (1100-4500); Lymphocytes Percent Auto 11.5 % (25-40); Mean Corpuscular HGB Conc 32.7 % (30-36); Mean Corpuscular Hemoglobin 28.7 PG (26-34); Mean Corpuscular Volume 87.6 fL (80-100); Monocytes Absolute Auto 1300 /uL (0-900); Monocytes Percent Auto 6.4 % (3-14); Neutrophils Absolute Auto 13500 /uL (1500-7000); Neutrophils Percent Auto 66.5 % (50-75); Platelet Count 473 X10^3/uL (150-400); Red Blood Cell Count 4.88 X10^6/uL (4.5-5.9); Red Cell Distribution Width 14.3 % (11.6-14.8); White Blood Cell Count 20.3 X10^3/uL (4.5-11.0)
[2018-09-25 16:37] LABS: Alanine Aminotransferase 31 IU/L (21-72); Albumin 3.8 g/dL (3.5-5.0); Albumin Globulin Ratio 1.1 (1.0-2.8); Alkaline Phosphatase 100 U/L (38-126); Aspartate Aminotransferase 19 IU/L (17-59); BUN Creatinine Ratio 32.5 (6-22); Bilirubin Total 0.7 mg/dL (0.2-1.3); Blood Urea Nitrogen 26 mg/dL (9-20); Calcium 9.4 mg/dL (8.4-10.2); Carbon Dioxide 27 mmol/L (22-32); Chloride 95 mmol/L (98-107); Estimated Glomerular Filt Rate > 60.0 mL/min (>60); Globulin 3.4 g/dL (1.7-4.1); Glucose 97 mg/dL (80-110); HEMOLYSIS 16 (0-50); Lactate Dehydrogenase 501 U/L (313-618); Potassium 4.4 mmol/L (3.4-5.1); Sodium 133 mmol/L (137-145); Total Protein 7.2 g/dL (6.3-8.2)
[2018-09-25 17:09] LABS: Carcinoembryonic Antigen 1.3 ng/mL (0.1-3.0)
[2018-09-25 18:38] LABS: Prostate Specific Antigen 304 ng/mL (0.10-4.00)
[2018-09-27 14:14] LABS: Anti Thyroglobulin Antibody < 1 IU/mL (< 2); Thyroglobulin Level 16.1 ng/mL (2.8-40.9)
[2018-09-27 15:22] LABS: Triiodothyronine T3 Total 34 ng/dL (76-181)
--- NOTE | 2018-10-30 10:49 | ONC.PN ---
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 Oncology History: 68 year old initially presented with progressive hoarseness of the voice early 2018, but elected not to pursue medical evaluation out of concern for surgery. Nine months later, he went to see Shantel desiring workup and therapy. CT neck on 07/29/2018 showed enlargement of left superior mediastinal mass with extension into the lower left neck, left level IV metastatic lymphadenopathy, multiple bilateral pulmonary nodules, left tongue base mucosa prominence and irregularity and patulous esophagus concerning for distal esophageal stricture. CT chest on July 29, 2018 showed interval development of numerous bilateral pulmonary metastasis, poorly defined left superior mediastinal lymphadenopathy/soft tissue mass, enlarged right hilar and left supraclavicular lymphadenopathy at a large hiatal hernia. Patient subsequently underwent left supraclavicular lymph node aspiration. The pathology showed positive results for malignancy likely epithelial neoplasm. Differential diagnosis including possibly thyroid neoplasm. On September 03, 2018, Dr. Leyla Waite performed bronchoscopy, right laryngeal biopsy, EGD with gastric polyp biopsies and esophageal biopsy, flexible nasopharyngoscopy, excisional biopsy of the pathologically enlarged level 5B/4 biopsy. pathology showed that samples from left 4B lymph node was large cell undifferentiated epithelial malignancy. And there is no evidence of non-Hodgkin's lymphoma by flow cytometry. 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 The biopsy samples from rest of the anatomic sites showed no malignancy. On September 24, 2018, patient underwent PET scanning. The PET scan showed PET scan showed multiple hypermetabolic left lower cervical, supraclavicular, mediatinal, left hilar, and right axillary lymph nodes, bilateral hypermetabolic lung nodules/masses, subcutaneous nodule in the right perineum, questionable increased uuptake in luis m left colon, small bowel or mesentery, suspicious small mesenteric lymph nodes in the left upper quadrant. Interim Events: On 09/29/2018, Dr. Sesar Funes performed right axillary lymph node resection. The pathology showed large cell undifferentiated carcinoma. The surgical samples were sent for [employer] NGS. The results reviewed BRaf [id number] (V600E) mutation. In addition PD-L1 (IHC -22C3) 100% TPS and CD8 IHC strongly infiltrating. Patient presents here today for discussion of possible treatment. Clinically patient is complaining significantly weaker than before. He said that his breathing is okay. However he is having problems with food. He Gas-X on food. He only drinks food. He drinks very little of water according to his . He denies any chest pain. No abdominal pain. No diarrhea and no constipation. - Patient Self-Reported Symptoms SR Constitution: Weight loss/gain, Fatigue/Malaise SR ears, nose, mouth, throat issues: Nose bleeds SR Gastrointestinal issues: Vomiting, Constipation SR Neuro issues: Numbness or tingling - Additional ROS All systems PM: reviewed and no additional remarkable complaints except as stated Home Medications and Allergies Home Medications Medication Instructions Recorded Confirmed Type hydrocortisone valerate 0.2 % 1 applictn TOP BID #15 gram 06/05/18 10/30/18 Rx topical cream losartan 50 mg tablet 50 mg PO QDAY #90 tab 06/05/18 10/30/18 Rx Durezol 1 drp EYE-RIGHT TID 09/03/18 10/30/18 History simvastatin 10 mg PO BEDTIME 09/03/18 10/30/18 History Citracal Regular 1 cap PO DAILY 09/25/18 10/30/18 History oxycodone See Rx Instructions .ROUTE 09/29/18 10/30/18 Rx .COMPLEX PRN #7 tab dabrafenib [Tafinlar] 150 mg PO Q12H 30 Days #120 cap 10/30/18 Rx trametinib [Mekinist] 2 mg PO Q24H 30 Days #30 tab 10/30/18 Rx Allergies Allergy/AdvReac Type Severity Reaction Status Date / Time No Known Drug Allergies Allergy Verified 10/23/18 09:46 Exam Vital signs: Last Vital Signs Temp 98.4 F 10/30/18 12:22 Pulse 89 10/30/18 12:22 Resp 20 10/30/18 12:22 BP 124/74 10/30/18 12:22 Pulse Ox 96 10/30/18 12:22 ECOG 1 Narrative: Gen: WDWN, NAD, cooperative. HEENT: NCAT, EOMI, PERRLA, anicteric sclera. Neck: Supple, No palpable thyromegaly. Palpable lymph nodes noted in the left supraclavicular fossa. Respiratory: CTAB, no wheezes audible. No JVD Cardiovascular: RRR, S1 and S2 normal, no M/G/R. Abdomen: Soft, NTND, BS normal, no palpable organomegaly Extremities: No LE pitting edema. Lymphatic: palpable lymph nodes in the right axilla. No lymph nodes in the left axilla. Neurological: AOx3, CN II-XII grossly intact. No focal motor or sensory deficit. Psychiatric: Normal affect; cooperative Results - Labs Laboratory Last Values WBC 20.3 X10^3/uL (4.5-11.0) H 09/25/18 15:24 RBC 4.88 X10^6/uL (4.5-5.9) 09/25/18 15:24 Hgb 14.0 g/dL (13.5-17.5) 09/25/18 15:24 Hct 42.8 % (41-53) 09/25/18 15:24 MCV 87.6 fL (80-100) 09/25/18 15:24 MCH 28.7 PG (26-34) 09/25/18 15:24 MCHC 32.7 % (30-36) 09/25/18 15:24 RDW 14.3 % (11.6-14.8) 09/25/18 15:24 Plt Count 473 X10^3/uL (150-400) H 09/25/18 15:24 Neut % (Auto) 66.5 % (50-75) 09/25/18 15:24 Lymph % (Auto) 11.5 % (25-40) L 09/25/18 15:24 [place] % (Auto) 6.4 % (3-14) 09/25/18 15:24 Eos % (Auto) 14.9 % (2-4) H 09/25/18 15:24 Baso % (Auto) 0.7 % (0-2) 09/25/18 15:24 Neut # (Auto) 51022 /uL (0327-7907) H 09/25/18 15:24 Lymph # (Auto) 2300 /uL (6708-7299) 09/25/18 15:24 [place] # (Auto) 1300 /uL (0-900) H 09/25/18 15:24 Eos # (Auto) 3000 /uL (0-450) H 09/25/18 15:24 Baso # (Auto) 100 /uL (0-100) 09/25/18 15:24 Sodium 133 mmol/L (137-145) L 09/25/18 15:24 Potassium 4.4 mmol/L (3.4-5.1) 09/25/18 15:24 Chloride 95 mmol/L (98-107) L 09/25/18 15:24 Carbon Dioxide 27 mmol/L (22-32) 09/25/18 15:24 BUN 26 mg/dL (9-20) H 09/25/18 15:24 Creatinine 0.80 mg/dL (0.66-1.25) 09/25/18 15:24 Estimated GFR > 60.0 mL/min (>60) 09/25/18 15:24 BUN/Creatinine Ratio 32.5 (6-22) H 09/25/18 15:24 Glucose 97 mg/dL (80-110) 09/25/18 15:24 Calcium 9.4 mg/dL (8.4-10.2) 09/25/18 15:24 Total Bilirubin 0.7 mg/dL (0.2-1.3) 09/25/18 15:24 AST 19 IU/L (17-59) 09/25/18 15:24 ALT 31 IU/L (21-72) 09/25/18 15:24 Alkaline Phosphatase 100 U/L (38-126) 09/25/18 15:24 Lactate Dehydrogenase 501 U/L (313-618) 09/25/18 15:24 Total Protein 7.2 g/dL (6.3-8.2) 09/25/18 15:24 Albumin 3.8 g/dL (3.5-5.0) 09/25/18 15:24 Globulin 3.4 g/dL (1.7-4.1) 09/25/18 15:24 Albumin/Globulin Ratio 1.1 (1.0-2.8) 09/25/18 15:24 Carcinoembryonic Ag 1.3 ng/mL (0.1-3.0) 09/25/18 15:24 Prostate Specific Ag 304 ng/mL (0.10-4.00) H 09/25/18 15:24 TSH 28.30 uIU/mL (0.47-4.68) H 09/25/18 15:24 Free T4 0.50 ng/dL (0.78-2.19) L 09/25/18 15:24 Total T3 34 ng/dL (76-181) L 09/25/18 15:24 Thyroglobulin 16.1 ng/mL (2.8-40.9) 09/25/18 15:24 Thyroglobulin Comment Not Reportable 09/25/18 15:24 Thyroglobulin Antibody < 1 IU/mL (< 2) 09/25/18 15:24 - Imaging Additional studies: Procedures CLOSURE SKIN & SUBCUTANEOUS NEC (03/30/09) Injection or infusion of other therapeutic or prophylactic substance (05/21/12) Assessment and Plan (1) Cancer of unknown origin Overview: 68-year-old gentleman with metastatic cancer of unknown primary involving left lower cervical, supraclavicular, mediatinal, left hilar, and right axillary lymph nodes, bilateral hypermetabolic lung nodules/masses, subcutaneous nodule in the right perineum, questionable left colon, and small bowel or mesentery. Biopsy from left neck node on 09/03/2018 and from right axilary node on 09/29/2018 showed same pathological features: large cell undifferentiated carcinoma. NGS showed Braf V600E mutation positive, PD-L1 (22C3) IHC 100% TPS and CD8 IHC strongly infiltrating. 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 Today I explained to the patient that anaplastic thyroid carcinoma is a rare type of thyroid cancer. It is very aggressive. It has a short life span usually measured in months. And up until now we do not have a good therapeutic options for anaplastic thyroid carcinoma. I also talked about the potential risk of airway obstruction. In addition nutritional support is also extremely important. There is no curative therapy for metastatic anaplastic thyroid cancer. And the survival is measured in months. I also talked with the patient about OmniSeq results. The next gene sequencing showed that the patient's cancer harbors a mutation called Braf V600E. This finding means that the patient may be responsive to treatment with tyrosine kinase inhibitor called dabrafenib/tremetinib. The study with these two medications showed the overall response rate was 61% (95% CI: 39%, 80%) in 23 patients with ATC who were evaluable for response. The complete and partial response rates were 4% and 57%, respectively. Response duration was at least 6 months in 64% of responding patients. In addition, patient's tumor also is positive for PDL-1 expression, which means patient may be responsive to immunotherapy. My overall plan is to start with dabrafenib and tremetinib. We will evaluate responses every month. If there is no response, I will switch to immunotherapy, and hopefully he will respond. Today I also talked with the patient about the potential side effects of dabrafenib and treamitinib. I talked with the patient and patient's family about possible worsening fatigue, fever, nausea, vomiting, headache, cough, diarrhea, and high glucose level etc Patient and patient's family or voiced understanding. Plan: 1. Pre-auth: Debrafinib 150 mg/Tremetinib 2 mg daily, Start when received 2. NS 1000 cc weekly 3. CBC, CMP, LDH today 4. RTC in 2 weeks for follow up visit. repeat CBC, CMP (2) Hypothyroidism His TSH level was 28.3, FT4 0.50, and T3 34 on 09/25/2018. Repeat test on showed TSH 12.10, FT4 59. I will initiate levothyroxine 75 mcg daily with plan to titrate up during the next couple of months (3) PSA elevation His PSA level fluctuated quite a bit. On 11/26/2018, PSA was 304. Today we repeated the test the PSA level was 16.8. Given these significant change, I will have him come back again and repeat the test. If it is persistently elevated, I will proceed with urology consult.
[2018-10-30 10:52] VITALS: BP 124/88; PULSE 95; RESP 16; TEMP 36.1; O2SAT 96
[2018-10-30] MEDS: SODIUM CHLORIDE 0.9% 1,000 ML 1000 ML IV (12:15)
[2018-10-30 12:22] VITALS: BP 124/74; PULSE 89; RESP 20; TEMP 36.9; O2SAT 96
[2018-10-30 12:28] LABS: Hematocrit 38.6 % (41-53); Mean Corpuscular HGB Conc 33.6 % (30-36); Mean Corpuscular Volume 86.4 fL (80-100); Platelet Count 312 X10^3/uL (150-400); Red Blood Cell Count 4.47 X10^6/uL (4.5-5.9); Red Cell Distribution Width 16.6 % (11.6-14.8); White Blood Cell Count 27.8 X10^3/uL (4.5-11.0)
[2018-10-30 12:52] LABS: Alanine Aminotransferase 16 IU/L (21-72); Albumin 3.4 g/dL (3.5-5.0); Alkaline Phosphatase 101 U/L (38-126); Aspartate Aminotransferase 16 IU/L (17-59); BUN Creatinine Ratio 43.3 (6-22); Bilirubin Total 0.7 mg/dL (0.2-1.3); Blood Urea Nitrogen 26 mg/dL (9-20); Calcium 8.8 mg/dL (8.4-10.2); Carbon Dioxide 27 mmol/L (22-32); Chloride 94 mmol/L (98-107); Estimated Glomerular Filt Rate > 60.0 mL/min (>60); Globulin 3.5 g/dL (1.7-4.1); Glucose 116 mg/dL (80-110); HEMOLYSIS < 15 (0-50); Potassium 3.8 mmol/L (3.4-5.1); Sodium 133 mmol/L (137-145); Total Protein 6.9 g/dL (6.3-8.2)
[2018-10-30 13:05] LABS: Neutrophils Absolute Manual 14178 /uL (3000-5900); Total Cells Counted 100
[2018-10-30 13:06] LABS: Anisocytosis 1+
[2018-10-30 13:08] LABS: Free T4, Direct Thyroxine 0.59 ng/dL (0.78-2.19)
--- NOTE | 2018-10-30 14:15 | PC.NURSE ---
Omar and Joaquim STERN request submitted to [facility]. Nataliia Monzon RPh
[2018-10-30 14:51] LABS: Prostate Specific Antigen 16.8 ng/mL (0.10-4.00)
[2018-10-30 14:54] LABS: Testosterone 20.8 ng/dL (71.8-623)
--- NOTE | 2018-10-30 15:05 | PC.NURSE ---
viridiana and devi approved by [facility]. Scripts faxed to [facility]. Nataliia Monzon RP
--- NOTE | 2018-10-30 15:55 | PC.NURSE ---
ALENA received from Dr. Waggoner for Synthroid, called in RX to [facility] and spoke with ZELALEM Bellamy. Spoke with pt's SO, Celine, instructed on new medication dose and instructions. Celine reports she will pick it up tomorrow.
--- NOTE | 2018-11-04 08:40 | PC.NURSE ---
ALTERED CONCIOUSNESS, BLOOD IN URINE: patient's called in reporting these two symptoms and that patient much worse in the last couple days, that he is only taking his levothyroxine some of the time because he is fading in and out. This nurse advised to bring patient to ER and called back again and confirmed that paramedics were there to transport patient at time of this writing.
--- NOTE | 2018-11-04 09:32 | ONC.MSW ---
Description: Care Coordination/Permission to disclose PHI Activity: [facility] called here and spoke to triage, asking if they could get our permission to call pt's brother to coordinate the delivery of his immunotherapy drug. SUPERVISOR CURED MEATS went over the the ER (where patient is being evaluated) and asked his permission, which he verbally provided. Called [facility] to relay the authorization for them to call Sang Can. SUPERVISOR CURED MEATS also met with Dr. Edmond in the ER, provided some background information re: pt's disease status, as well as explained that both pt and his are special needs, in terms of developmental delays and processing. No further needs indicated at this time.
--- NOTE | 2018-11-13 09:22 | ONC.MSW ---
*Sent bereavement card.
[2018-11-20 15:20] LABS: Triiodothyronine T3 Total < 25
== END ==
PROVIDERS: PCP Student in an Organized Health Care Education/Training Program; Visit Provider Internal Medicine Hematology & Oncology
DX: C73 Malignant neoplasm of thyroid gland (principal); C78.01 Secondary malignant neoplasm of right lung; C78.02 Secondary malignant neoplasm of left lung; C77.8 Secondary and unspecified malignant neoplasm of lymph nodes of multiple regions; E03.9 Hypothyroidism, unspecified; R97.20 Elevated prostate specific antigen [PSA]
CPT/HCPCS: 36415; 36591; 80053; 82378; 83615; 84153; 84403; 84432; 84439; 84443; 84480; 85025; 86800; 96360; 99205; 99215

== ENCOUNTER 2018-11-04 08:53 | Inpatient (IN) | payer MEDICARE, OTHER, SELFPAY ==
[2018-09-03 12:42] VITALS: BMI 31.7
[2018-11-04] VITALS (11 sets, daily range): BP systolic 125–144; BP diastolic 60–83; PULSE 80–102; RESP 14–32; TEMP 36.4–38.4; O2SAT 92–96; BMI 27.5
--- NOTE | 2018-11-04 09:04 | ED.WEAKNESS ---
HPI - Weakness General Chief complaint: Weakness Stated complaint: Lethargic Time Seen by Provider: 11/04/18 08:54 Source: patient and EMS Mode of arrival: EMS Limitations: no limitations History of Present Illness HPI Narrative: This is a 68-year-old male comes to the emergency department for lethargy per EMS. Patient is awake, alert and appropriate for me. He tells me that he would like to go back to sleep. He is able to answer questions appropriately. He has known metastatic thyroid cancer and states that he has started chemotherapy. He states that he came here today because he has hematuria. He denies fevers or chills, he states that he does feel like sometimes he has to take a deep breath but denies any other difficulty with breathing. Denies any chest pain or pressure, no nausea, no vomiting. No issues with bowel movements. Patient states he has had hematuria, denies any frequency urgency or dysuria. No bowel or bladder incontinence. Per EMS patient's was present at [facility] and is EN route to the hospital. Related Data Home Medications Medication Instructions Recorded Confirmed Citracal Powder 1 dose PO DAILY 11/04/18 11/04/18 Previous Rx's Medication Instructions Recorded levothyroxine 75 mcg PO DAILY #30 tab 10/30/18 trametinib [Mekinist] 2 mg PO Q24H 30 Days #30 tab 10/30/18 Allergies Allergy/AdvReac Type Severity Reaction Status Date / Time No Known Drug Allergies Allergy Verified 10/23/18 09:46 Review of Systems Review of Systems ROS Unobtainable: All systems reviewed & are unremarkable except as noted in HPI and below Constitutional Denies chills, Reports daytime sleepiness, Reports fatigue, Denies fever(s), Denies lethargy and Denies weakness Cardiovascular Denies chest pain, Denies diaphoresis, Denies syncope, Denies rapid heart rate, Denies edema, Denies lightheadedness, Denies palpitations, Denies dyspnea and Denies dyspnea on exertion Respiratory Denies change in phlegm color, Denies chest congestion, Denies cough, Denies dyspnea, Denies dyspnea on exertion, Denies wheezing and Reports other (Feels like occasionally a deep breath) Gastrointestinal Gastrointestinal: Denies abdominal pain, Denies melena, Denies hematochezia, Denies change in bowel habits, Denies diarrhea, Denies nausea and Denies vomiting Genitourinary Reports hematuria, Denies difficulty urinating, Denies dysuria, Denies flank pain, Denies urinary frequency, Denies urinary hesitancy, Denies urinary incontinence and Denies urinary urgency Musculoskeletal Denies muscle weakness and Denies numbness Integumentary/Breasts Denies unusual bruising Neurologic Reports as per HPI, Denies confusion, Denies syncope, Denies numbness and Denies weakness Psychiatric Denies confusion Endocrine Reports fatigue and Denies palpitations Allergic/Immunologic Denies wheezing [facility] Medical History Abnormal CT scan, neck (Chronic) Mediastinal mass (Chronic) Vocal cord paralysis (Chronic) BPH loc w urin obs/LUTS (Acute) Cancer of neck (Acute) Difficulty swallowing (Acute) Hiatal hernia (Acute) GERD (gastroesophageal reflux disease) (Chronic Unknown) Gout (Chronic Unknown) Hyperlipemia (Chronic Unknown) Hypertension (Chronic Unknown) Chickenpox (Resolved) Hemorrhoids (Resolved Unknown) Hx of cardiac arrhythmia (Resolved Unknown) Hx of deep venous thrombosis (Resolved 01/2016) Measles (Resolved) Mumps (Resolved) Surgical History Hx of bilateral cataract extraction (Acute ~2015) S/P bronchoscopy with biopsy (Acute 09/03/18) History of tonsillectomy and adenoidectomy (Resolved Unknown) Hx of appendectomy (Resolved Unknown) Hx of bilateral inguinal hernia repair (Resolved 12/2016) Family History (Updated 09/25/18 @ 14:38 by Pawan Waggoner MD) Sister Cancer Family/Other Cancer Family/Other Colon cancer Social History marital status: household members: spouse occupational status: previously employed Smoking Status: Never smoker alcohol intake: never substance use type: does not use Family History Sister Cancer Family/Other Cancer Family/Other Colon cancer Social History marital status: household members: spouse occupational status: previously employed Smoking Status: Never smoker alcohol intake: never substance use type: does not use Exam Narrative Exam Narrative: GEN: well nourished, male, alert and oriented x 3, patient appears to be in no acute distress. HEENT: Atraumatic, pupils are equal round reactive to light, extraocular movements are intact, nares are clear, TMs are clear with no fluid, there is no conjunctival pallor. Throat is clear without any exudates, erythema, tonsillar enlargement or uvular deviation, patient has some mild swelling of the left side of the neck, nontender to palpation. He also has what appears to be some varicosity on the left lower neck/upper clavicle region. Patient talks in a whisper type voice. HEART: Regular rate and rhythm without murmur, clicks, rubs. Pulses are equal in upper and lower extremities. Patient has a port on the right upper chest. No swelling in extremities appreciated. LUNGS:Lungs clear to auscultation, no wheezes, rales, crackles, chest moves symmetrically ABD:bowel sounds normal, soft, non-tender, no guarding, rebound, rigidity, no masses noted, no hepatosplenomegaly :No CVA tenderness MSCL: Non-tender, full range of motion of upper extremities. NEURO:CN 2-12 intact, sensation normal SKIN: no petechiae, no rash , no erythema Initial Vital Signs Initial Vital Signs: Vital Signs Temperature 97.5 F L 11/04/18 09:09 Pulse Rate 93 H 11/04/18 09:09 Respiratory Rate 28 H 11/04/18 09:09 Blood Pressure 128/83 11/04/18 09:09 Pulse Oximetry 95 11/04/18 09:09 Scores [facility] [place] coma scale eye opening: Spontaneous [place] coma scale verbal response: Orientated [place] coma scale motor response: Obey commands [place] coma scale total score: 15 Course Orders Ordered: ED Orders 11/04/18 09:55 Ictotest Urine Stat Urinalysis and Microscopic Stat Urine Culture Stat 11/04/18 10:35 Blood Culture Stat Lactate (Lactic Acid) Stat 11/04/18 11:49 Education, smoking cessation ONGOING 11/04/18 11:51 Consult to Occupational Therapy Evaluate & Treat Consult to Physical Therapy Evaluate & Treat 11/04/18 12:35 Consult to Dietitian, Adult Routine Consult to Pastoral Services Routine Acetaminophen (Tylenol) 650 mg PO Q6HR PRN PRN Reason: As Needed for Fever/Mild Pain Enoxaparin Sodium (Lovenox) 40 mg SUBCUT DAILY [facility] Ceftriaxone Sodium/Dextrose (Rocephin) 1 gm in 50 mls @ 100 mls/hr IV Q24H [facility] Levothyroxine Sodium (Synthroid) 75 mcg PO 0600 TANK Discontinued Medications Sodium Chloride (Normal Saline 0.9%) 1,000 mls @ 1,000 mls/hr IV BOLUS ONE Stop: 11/04/18 09:59 Last Infusion: 11/04/18 10:20 Dose: 0 mls/hr Admin: 11/04/18 09:32 Dose: 1,000 mls/hr Vital Signs - 8 hr 11/04/18 11:00 11/04/18 12:00 11/04/18 12:07 Temperature Pulse Rate 91 H 80 80 Respiratory Rate 20 24 Blood Pressure Blood Pressure [Left Arm] 125/61 127/60 125/61 Pulse Oximetry 93 96 96 11/04/18 13:13 11/04/18 15:00 11/04/18 15:37 Temperature 98.8 F 99.2 F Pulse Rate 87 85 Respiratory Rate 32 H 20 Blood Pressure 137/70 133/74 Blood Pressure [Left Arm] Pulse Oximetry 93 96 93 MDM - Weakness Lab Data Attestation: I reviewed the patient's lab results. Result diagrams: 11/04/18 09:05 11/04/18 09:05 Lab Results 11/04/18 11/04/18 11/04/18 Range/Units 09:05 09:05 09:05 WBC 34.1 H* (4.5-11.0) X10^3/uL RBC 4.35 L (4.5-5.9) X10^6/uL Hgb 12.5 L (13.5-17.5) g/dL Hct 37.5 L (41-53) % MCV 86.2 (80-100) fL MCH 28.7 (26-34) PG MCHC 33.3 (30-36) % RDW 16.6 H (11.6-14.8) % Plt Count 318 (150-400) X10^3/uL Neut % (Auto) Not Reportable Lymph % (Auto) Not Reportable [place] % (Auto) Not Reportable Eos % (Auto) Not Reportable Baso % (Auto) Not Reportable Lymph # (Auto) Not Reportable [place] # (Auto) Not Reportable Baso # (Auto) Not Reportable Total Counted 100 Seg Neutrophils % 48.0 (38-70) % Band Neutrophils % 9.0 H (3-7) % Lymphocytes % (Manual) 5.0 L (25-45) % Monocytes % (Manual) 5.0 (2-11) % Eosinophils % (Manual) 33.0 H (2-4) % Neutrophils # (Manual) 56307 H (2524-8429) /uL RBC Morphology See below Poikilocytosis 1+ H Anisocytosis 1+ H PT 15.3 H (10.1-12.7) SECONDS INR 1.3 (0.9-1.3) APTT 26 L (26.4-36.2) SECONDS Sodium 137 (137-145) mmol/L Potassium 3.8 (3.4-5.1) mmol/L Chloride 101 (98-107) mmol/L Carbon Dioxide 25 (22-32) mmol/L BUN 33 H (9-20) mg/dL Creatinine 0.60 L (0.66-1.25) mg/dL Estimated GFR > 60.0 (>60) mL/min BUN/Creatinine Ratio 55.0 H (6-22) Glucose 117 H (80-110) mg/dL Lactate (0.7-2.1) mmol/L Calcium 8.5 (8.4-10.2) mg/dL Total Bilirubin 1.0 (0.2-1.3) mg/dL AST 15 L (17-59) IU/L ALT 7 L (21-72) IU/L Alkaline Phosphatase 91 (38-126) U/L Troponin I < 0.012 (0.01-0.034) ng/mL Total Protein 6.8 (6.3-8.2) g/dL Albumin 3.2 L (3.5-5.0) g/dL Globulin 3.6 (1.7-4.1) g/dL Albumin/Globulin Ratio 0.9 L (1.0-2.8) TSH (0.47-4.68) uIU/mL Urine Color Urine Appearance Urine pH (4.5-8.0) Ur Specific [place] (1.000-1.035) Urine Protein (Negative) Urine Glucose (UA) (Negative) g/dL Urine Ketones (NEGATIVE) Urine Occult Blood (Negative) Urine Nitrate (Negative) Urine Bilirubin (NEGATIVE) Urine Ictotest (Negative) Urine Urobilinogen (0.2) E.U./dL Ur Leukocyte Esterase (NEGATIVE) Urine RBC (0-5/HPF) Urine WBC (0-5/HPF) Amorphous Sediment Urine Bacteria (None) Urine Mucus (Negative) Ur Culture Indicated? 11/04/18 11/04/18 11/04/18 Range/Units 09:05 09:55 10:35 WBC (4.5-11.0) X10^3/uL RBC (4.5-5.9) X10^6/uL Hgb (13.5-17.5) g/dL Hct (41-53) % MCV (80-100) fL MCH (26-34) PG MCHC (30-36) % RDW (11.6-14.8) % Plt Count (150-400) X10^3/uL Neut % (Auto) Lymph % (Auto) [place] % (Auto) Eos % (Auto) Baso % (Auto) Lymph # (Auto) [place] # (Auto) Baso # (Auto) Total Counted Seg Neutrophils % (38-70) % Band Neutrophils % (3-7) % Lymphocytes % (Manual) (25-45) % Monocytes % (Manual) (2-11) % Eosinophils % (Manual) (2-4) % Neutrophils # (Manual) (9758-9819) /uL RBC Morphology Poikilocytosis Anisocytosis PT (10.1-12.7) SECONDS INR (0.9-1.3) APTT (26.4-36.2) SECONDS Sodium (137-145) mmol/L Potassium (3.4-5.1) mmol/L Chloride (98-107) mmol/L Carbon Dioxide (22-32) mmol/L BUN (9-20) mg/dL Creatinine (0.66-1.25) mg/dL Estimated GFR (>60) mL/min BUN/Creatinine Ratio (6-22) Glucose (80-110) mg/dL Lactate 1.7 (0.7-2.1) mmol/L Calcium (8.4-10.2) mg/dL Total Bilirubin (0.2-1.3) mg/dL AST (17-59) IU/L ALT (21-72) IU/L Alkaline Phosphatase (38-126) U/L Troponin I (0.01-0.034) ng/mL Total Protein (6.3-8.2) g/dL Albumin (3.5-5.0) g/dL Globulin (1.7-4.1) g/dL Albumin/Globulin Ratio (1.0-2.8) TSH 8.43 H D (0.47-4.68) uIU/mL Urine Color Yellow Urine Appearance Clear Urine pH 5.5 (4.5-8.0) Ur Specific [place] 1.020 (1.000-1.035) Urine Protein 1+ H (Negative) Urine Glucose (UA) Negative (Negative) g/dL Urine Ketones 1+ H (NEGATIVE) Urine Occult Blood Negative (Negative) Urine Nitrate Negative (Negative) Urine Bilirubin 2+ H (NEGATIVE) Urine Ictotest Positive H (Negative) Urine Urobilinogen 2.0 H (0.2) E.U./dL Ur Leukocyte Esterase Negative (NEGATIVE) Urine RBC None seen (0-5/HPF) Urine WBC 0-1/hpf (0-5/HPF) Amorphous Sediment 1+ Urine Bacteria Occasional (0-1) (None) Urine Mucus 2+ H (Negative) Ur Culture Indicated? Cult not indicated Imaging Data Chest x-ray: Radiologist's impression: [place] [address] XRay Report Signed Patient: Jim Can R#: [id number] : 1950Acct:[id number] Age/Sex: 68 / MDate of Service: 11/04/18 Loc: ED Accession Number: [id number] Procedure: XR chest 1V Ordering Provider: Mar Edmond D.O. PROCEDURE: XR CHEST 1V INDICATIONS: lethargy TECHNIQUE: One view of the chest was acquired. COMPARISON: [facility], CT, CT CHEST W CON, 08/25/2018, 2:21. [facility], CR, XR CHEST 1V, 09/29/2018, 13:59. FINDINGS: Surgical changes and devices: Right chest wall Port-A-Cath tip is in SVC.. Lungs and pleura: Prominent soft tissue masses are seen in bilateral lung johnson measures 5.7 x 5.1 cm in left upper lung field and 7.8 x 6.5 cm in size in right lower lung field consistent with patient's known bilateral pulmonary masses. No pleural effusions or pneumothorax. Mediastinum: Tortuous thoracic aorta is seen. Heart size is enlarged. Bones and chest wall: No suspicious bony lesions. Overlying soft tissues appear unremarkable. IMPRESSION: Multiple bilateral pulmonary masses more prominent in size compared to previous CT of chest study and PET/CT study. No pleural effusion or pneumothorax. Dictated by: Toro Jimenez M.D. on 11/04/2018 at 9:45 Approved by: Toro Jimenez M.D. on 11/04/2018 at 9:47 ECG Data Attestation: I personally reviewed and interpreted this ECG as follows: Interpretation: Sinus rhythm with occasional supraventricular complexes, rate of 93 LA 150 QRS of 123 and QTC of 429. No ST elevation or depression appreciated. Patient has prior EKG from 08/25/18 which appears similar. MDM Narrative Medical decision making narrative: Patient is known to the oncology head athletic trainer who stopped by today. 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 He is receiving chemo and potentially going to be started on immunotherapy but has very progressed cancer, stage 4. Good social support per head athletic trainer. Spoke with Dr. Waggoner, he does want patient to start his chemo if he has not already as his cancer is sensitive and has potential for some improvement. He had noted leukocytosis and states possible leukemoid reaction as he had not noted any infectious changes. Patient has not source found today for infection but elevating WBC count and bandemia, suspect leukomoid reaction. Blood culture and urine culture sent. 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 Patient recieved IVFs in department. He is napping but awakens easily to voice. Verified with family DNR/DNI but okay with fluids, abx as needed. Also updated Dr. Rosado PCP at wifes request. Spoke with Dr. Al who accepts for observation. Discharge Plan Departure Patient Disposition: Admitted as Observation Clinical Impression: Weakness, Hematuria, Anaplastic thyroid carcinoma Discharge Date/Time: 11/04/18 12:05 Interventions: ED Discharge Assessment Last Done: 11/04/18 12:57 Referrals: Reuben Rosado MD [Primary Care Provider] - Pawan Waggoner MD [Physician] - Admit Date/Time: 11/04/18 11:20 Admit Provider: Darion Al
--- NOTE | 2018-11-04 09:09 | ED_ITS ---
HPI - Weakness General Chief complaint: Weakness Stated complaint: Lethargic Time Seen by Provider: 11/04/18 08:54 Source: patient and EMS Mode of arrival: EMS Limitations: no limitations History of Present Illness HPI Narrative: This is a 68-year-old male comes to the emergency department for lethargy per EMS. Patient is awake, alert and appropriate for me. He tells me that he would like to go back to sleep. He is able to answer questions appropriately. He has known metastatic thyroid cancer and states that he has started chemotherapy. He states that he came here today because he has hematuria. He denies fevers or chills, he states that he does feel like sometimes he has to take a deep breath but denies any other difficulty with breathing. Denies any chest pain or pressure, no nausea, no vomiting. No issues with bowel movements. Patient states he has had hematuria, denies any frequency urgency or dysuria. No bowel or bladder incontinence. Per EMS patient's was present at [facility] and is EN route to the hospital. Related Data Home Medications Medication Instructions Recorded Confirmed Citracal Powder 1 dose PO DAILY 11/04/18 11/04/18 Previous Rx's Medication Instructions Recorded levothyroxine 75 mcg PO DAILY #30 tab 10/30/18 trametinib [Mekinist] 2 mg PO Q24H 30 Days #30 tab 10/30/18 Allergies Allergy/AdvReac Type Severity Reaction Status Date / Time No Known Drug Allergies Allergy Verified 10/23/18 09:46 Review of Systems Review of Systems ROS Unobtainable: All systems reviewed & are unremarkable except as noted in HPI and below Constitutional Denies chills, Reports daytime sleepiness, Reports fatigue, Denies fever(s), Denies lethargy and Denies weakness Cardiovascular Denies chest pain, Denies diaphoresis, Denies syncope, Denies rapid heart rate, Denies edema, Denies lightheadedness, Denies palpitations, Denies dyspnea and Denies dyspnea on exertion Respiratory Denies change in phlegm color, Denies chest congestion, Denies cough, Denies dyspnea, Denies dyspnea on exertion, Denies wheezing and Reports other (Feels like occasionally a deep breath) Gastrointestinal Gastrointestinal: Denies abdominal pain, Denies melena, Denies hematochezia, Denies change in bowel habits, Denies diarrhea, Denies nausea and Denies vomiting Genitourinary Reports hematuria, Denies difficulty urinating, Denies dysuria, Denies flank pain, Denies urinary frequency, Denies urinary hesitancy, Denies urinary incontinence and Denies urinary urgency Musculoskeletal Denies muscle weakness and Denies numbness Integumentary/Breasts Denies unusual bruising Neurologic Reports as per HPI, Denies confusion, Denies syncope, Denies numbness and Denies weakness Psychiatric Denies confusion Endocrine Reports fatigue and Denies palpitations Allergic/Immunologic Denies wheezing [facility] Medical History Abnormal CT scan, neck (Chronic) Mediastinal mass (Chronic) Vocal cord paralysis (Chronic) BPH loc w urin obs/LUTS (Acute) Cancer of neck (Acute) Difficulty swallowing (Acute) Hiatal hernia (Acute) GERD (gastroesophageal reflux disease) (Chronic Unknown) Gout (Chronic Unknown) Hyperlipemia (Chronic Unknown) Hypertension (Chronic Unknown) Chickenpox (Resolved) Hemorrhoids (Resolved Unknown) Hx of cardiac arrhythmia (Resolved Unknown) Hx of deep venous thrombosis (Resolved 01/2016) Measles (Resolved) Mumps (Resolved) Surgical History Hx of bilateral cataract extraction (Acute ~2015) S/P bronchoscopy with biopsy (Acute 09/03/18) History of tonsillectomy and adenoidectomy (Resolved Unknown) Hx of appendectomy (Resolved Unknown) Hx of bilateral inguinal hernia repair (Resolved 12/2016) Family History (Updated 09/25/18 @ 14:38 by Pawan Waggoner MD) Sister Cancer Family/Other Cancer Family/Other Colon cancer Social History marital status: household members: spouse occupational status: previously employed Smoking Status: Never smoker alcohol intake: never substance use type: does not use Family History Sister Cancer Family/Other Cancer Family/Other Colon cancer Social History marital status: household members: spouse occupational status: previously employed Smoking Status: Never smoker alcohol intake: never substance use type: does not use Exam Narrative Exam Narrative: GEN: well nourished, male, alert and oriented x 3, patient appears to be in no acute distress. HEENT: Atraumatic, pupils are equal round reactive to light, extraocular movements are intact, nares are clear, TMs are clear with no fluid, there is no conjunctival pallor. Throat is clear without any exudates, erythema, tonsillar enlargement or uvular deviation, patient has some mild swelling of the left side of the neck, nontender to palpation. He also has what appears to be some varicosity on the left lower neck/upper clavicle region. Patient talks in a whisper type voice. HEART: Regular rate and rhythm without murmur, clicks, rubs. Pulses are equal in upper and lower extremities. Patient has a port on the right upper chest. No swelling in extremities appreciated. LUNGS:Lungs clear to auscultation, no wheezes, rales, crackles, chest moves symmetrically ABD:bowel sounds normal, soft, non-tender, no guarding, rebound, rigidity, no masses noted, no hepatosplenomegaly :No CVA tenderness MSCL: Non-tender, full range of motion of upper extremities. NEURO:CN 2-12 intact, sensation normal SKIN: no petechiae, no rash , no erythema Initial Vital Signs Initial Vital Signs: Vital Signs Temperature 97.5 F L 11/04/18 09:09 Pulse Rate 93 H 11/04/18 09:09 Respiratory Rate 28 H 11/04/18 09:09 Blood Pressure 128/83 11/04/18 09:09 Pulse Oximetry 95 11/04/18 09:09 Scores GCS [place] coma scale eye opening: Spontaneous [place] coma scale verbal response: Orientated [place] coma scale motor response: Obey commands [place] coma scale total score: 15 Course Orders Ordered: ED Orders 11/04/18 09:55 Ictotest Urine Stat Urinalysis and Microscopic Stat Urine Culture Stat 11/04/18 10:35 Blood Culture Stat Lactate (Lactic Acid) Stat 11/04/18 11:49 Education, smoking cessation ONGOING 11/04/18 11:51 Consult to Occupational Therapy Evaluate & Treat Consult to Physical Therapy Evaluate & Treat 11/04/18 12:35 Consult to Dietitian, Adult Routine Consult to Pastoral Services Routine Acetaminophen (Tylenol) 650 mg PO Q6HR PRN PRN Reason: As Needed for Fever/Mild Pain Enoxaparin Sodium (Lovenox) 40 mg SUBCUT DAILY COUNTS INCLUDE 234 BEDS AT THE [facility] Ceftriaxone Sodium/Dextrose (Rocephin) 1 gm in 50 mls @ 100 mls/hr IV Q24H COUNTS INCLUDE 234 BEDS AT THE [facility] Levothyroxine Sodium (Synthroid) 75 mcg PO 0600 TANK Discontinued Medications Sodium Chloride (Normal Saline 0.9%) 1,000 mls @ 1,000 mls/hr IV BOLUS ONE Stop: 11/04/18 09:59 Last Infusion: 11/04/18 10:20 Dose: 0 mls/hr Admin: 11/04/18 09:32 Dose: 1,000 mls/hr Vital Signs - 8 hr 11/04/18 11:00 11/04/18 12:00 11/04/18 12:07 Temperature Pulse Rate 91 H 80 80 Respiratory Rate 20 24 Blood Pressure Blood Pressure [Left Arm] 125/61 127/60 125/61 Pulse Oximetry 93 96 96 11/04/18 13:13 11/04/18 15:00 11/04/18 15:37 Temperature 98.8 F 99.2 F Pulse Rate 87 85 Respiratory Rate 32 H 20 Blood Pressure 137/70 133/74 Blood Pressure [Left Arm] Pulse Oximetry 93 96 93 MDM - Weakness Lab Data Attestation: I reviewed the patient's lab results. Result diagrams: 11/04/18 09:05 11/04/18 09:05 Lab Results 11/04/18 11/04/18 11/04/18 Range/Units 09:05 09:05 09:05 WBC 34.1 H* (4.5-11.0) X10^3/uL RBC 4.35 L (4.5-5.9) X10^6/uL Hgb 12.5 L (13.5-17.5) g/dL Hct 37.5 L (41-53) % MCV 86.2 (80-100) fL MCH 28.7 (26-34) PG MCHC 33.3 (30-36) % RDW 16.6 H (11.6-14.8) % Plt Count 318 (150-400) X10^3/uL Neut % (Auto) Not Reportable Lymph % (Auto) Not Reportable Clay % (Auto) Not Reportable Eos % (Auto) Not Reportable Baso % (Auto) Not Reportable Lymph # (Auto) Not Reportable Clay # (Auto) Not Reportable Baso # (Auto) Not Reportable Total Counted 100 Seg Neutrophils % 48.0 (38-70) % Band Neutrophils % 9.0 H (3-7) % Lymphocytes % (Manual) 5.0 L (25-45) % Monocytes % (Manual) 5.0 (2-11) % Eosinophils % (Manual) 33.0 H (2-4) % Neutrophils # (Manual) 36731 H (8284-7860) /uL RBC Morphology See below Poikilocytosis 1+ H Anisocytosis 1+ H PT 15.3 H (10.1-12.7) SECONDS INR 1.3 (0.9-1.3) APTT 26 L (26.4-36.2) SECONDS Sodium 137 (137-145) mmol/L Potassium 3.8 (3.4-5.1) mmol/L Chloride 101 (98-107) mmol/L Carbon Dioxide 25 (22-32) mmol/L BUN 33 H (9-20) mg/dL Creatinine 0.60 L (0.66-1.25) mg/dL Estimated GFR > 60.0 (>60) mL/min BUN/Creatinine Ratio 55.0 H (6-22) Glucose 117 H (80-110) mg/dL Lactate (0.7-2.1) mmol/L Calcium 8.5 (8.4-10.2) mg/dL Total Bilirubin 1.0 (0.2-1.3) mg/dL AST 15 L (17-59) IU/L ALT 7 L (21-72) IU/L Alkaline Phosphatase 91 (38-126) U/L Troponin I < 0.012 (0.01-0.034) ng/mL Total Protein 6.8 (6.3-8.2) g/dL Albumin 3.2 L (3.5-5.0) g/dL Globulin 3.6 (1.7-4.1) g/dL Albumin/Globulin Ratio 0.9 L (1.0-2.8) TSH (0.47-4.68) uIU/mL Urine Color Urine Appearance Urine pH (4.5-8.0) Ur Specific [place] (1.000-1.035) Urine Protein (Negative) Urine Glucose (UA) (Negative) g/dL Urine Ketones (NEGATIVE) Urine Occult Blood (Negative) Urine Nitrate (Negative) Urine Bilirubin (NEGATIVE) Urine Ictotest (Negative) Urine Urobilinogen (0.2) E.U./dL Ur Leukocyte Esterase (NEGATIVE) Urine RBC (0-5/HPF) Urine WBC (0-5/HPF) Amorphous Sediment Urine Bacteria (None) Urine Mucus (Negative) Ur Culture Indicated? 11/04/18 11/04/18 11/04/18 Range/Units 09:05 09:55 10:35 WBC (4.5-11.0) X10^3/uL RBC (4.5-5.9) X10^6/uL Hgb (13.5-17.5) g/dL Hct (41-53) % MCV (80-100) fL MCH (26-34) PG MCHC (30-36) % RDW (11.6-14.8) % Plt Count (150-400) X10^3/uL Neut % (Auto) Lymph % (Auto) Clay % (Auto) Eos % (Auto) Baso % (Auto) Lymph # (Auto) Clay # (Auto) Baso # (Auto) Total Counted Seg Neutrophils % (38-70) % Band Neutrophils % (3-7) % Lymphocytes % (Manual) (25-45) % Monocytes % (Manual) (2-11) % Eosinophils % (Manual) (2-4) % Neutrophils # (Manual) (8001-6482) /uL RBC Morphology Poikilocytosis Anisocytosis PT (10.1-12.7) SECONDS INR (0.9-1.3) APTT (26.4-36.2) SECONDS Sodium (137-145) mmol/L Potassium (3.4-5.1) mmol/L Chloride (98-107) mmol/L Carbon Dioxide (22-32) mmol/L BUN (9-20) mg/dL Creatinine (0.66-1.25) mg/dL Estimated GFR (>60) mL/min BUN/Creatinine Ratio (6-22) Glucose (80-110) mg/dL Lactate 1.7 (0.7-2.1) mmol/L Calcium (8.4-10.2) mg/dL Total Bilirubin (0.2-1.3) mg/dL AST (17-59) IU/L ALT (21-72) IU/L Alkaline Phosphatase (38-126) U/L Troponin I (0.01-0.034) ng/mL Total Protein (6.3-8.2) g/dL Albumin (3.5-5.0) g/dL Globulin (1.7-4.1) g/dL Albumin/Globulin Ratio (1.0-2.8) TSH 8.43 H D (0.47-4.68) uIU/mL Urine Color Yellow Urine Appearance Clear Urine pH 5.5 (4.5-8.0) Ur Specific [place] 1.020 (1.000-1.035) Urine Protein 1+ H (Negative) Urine Glucose (UA) Negative (Negative) g/dL Urine Ketones 1+ H (NEGATIVE) Urine Occult Blood Negative (Negative) Urine Nitrate Negative (Negative) Urine Bilirubin 2+ H (NEGATIVE) Urine Ictotest Positive H (Negative) Urine Urobilinogen 2.0 H (0.2) E.U./dL Ur Leukocyte Esterase Negative (NEGATIVE) Urine RBC None seen (0-5/HPF) Urine WBC 0-1/hpf (0-5/HPF) Amorphous Sediment 1+ Urine Bacteria Occasional (0-1) (None) Urine Mucus 2+ H (Negative) Ur Culture Indicated? Cult not indicated Imaging Data Chest x-ray: Radiologist's impression: [place] [address] XRay Report Signed Patient: Jim Can R#: [id number] : 1950Acct:[id number] Age/Sex: 68 / MDate of Service: 11/04/18 Loc: ED Accession Number: [id number] Procedure: XR chest 1V Ordering Provider: Mar Edmond D.O. PROCEDURE: XR CHEST 1V INDICATIONS: lethargy TECHNIQUE: One view of the chest was acquired. COMPARISON: [facility], CT, CT CHEST W CON, 08/25/2018, 2:21. [facility], CR, XR CHEST 1V, 09/29/2018, 13:59. FINDINGS: Surgical changes and devices: Right chest wall Port-A-Cath tip is in SVC.. Lungs and pleura: Prominent soft tissue masses are seen in bilateral lung johnson measures 5.7 x 5.1 cm in left upper lung field and 7.8 x 6.5 cm in size in right lower lung field consistent with patient's known bilateral pulmonary masses. No pleural effusions or pneumothorax. Mediastinum: Tortuous thoracic aorta is seen. Heart size is enlarged. Bones and chest wall: No suspicious bony lesions. Overlying soft tissues appear unremarkable. IMPRESSION: Multiple bilateral pulmonary masses more prominent in size compared to previous CT of chest study and PET/CT study. No pleural effusion or pneumothorax. Dictated by: Toro Jimenez M.D. on 11/04/2018 at 9:45 Approved by: Toro Jimenez M.D. on 11/04/2018 at 9:47 ECG Data Attestation: I personally reviewed and interpreted this ECG as follows: Interpretation: Sinus rhythm with occasional supraventricular complexes, rate of 93 [place] 150 QRS of 123 and QTC of 429. No ST elevation or depression appreciated. Patient has prior EKG from 08/25/18 which appears similar. MDM Narrative Medical decision making narrative: Patient is known to the oncology end packer who stopped by today. 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 He is receiving chemo and potentially going to be started on immunotherapy but has very progressed cancer, stage 4. Good social support per end packer. Spoke with Dr. Waggoner, he does want patient to start his chemo if he has not already as his cancer is sensitive and has potential for some improvement. He had noted leukocytosis and states possible leukemoid reaction as he had not noted any infectious changes. Patient has not source found today for infection but elevating WBC count and bandemia, suspect leukomoid reaction. Blood culture and urine culture sent. 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 Patient recieved IVFs in department. He is napping but awakens easily to voice. Verified with family DNR/DNI but okay with fluids, abx as needed. Also updated Dr. Rosado PCP at wifes request. Spoke with Dr. Al who accepts for observation. Discharge Plan Departure Patient Disposition: Admitted as Observation Clinical Impression: Weakness, Hematuria, Anaplastic thyroid carcinoma Discharge Date/Time: 11/04/18 12:05 Interventions: ED Discharge Assessment Last Done: 11/04/18 12:57 Referrals: Reuben Rosado MD [Primary Care Provider] - Pawan Waggoner MD [Physician] - Admit Date/Time: 11/04/18 11:20 Admit Provider: Darion Al
[2018-11-04 09:15] LABS: Hematocrit 37.5 % (41-53); Hemoglobin 12.5 g/dL (13.5-17.5); Mean Corpuscular HGB Conc 33.3 % (30-36); Mean Corpuscular Hemoglobin 28.7 PG (26-34); Mean Corpuscular Volume 86.2 fL (80-100); Platelet Count 318 X10^3/uL (150-400); Red Blood Cell Count 4.35 X10^6/uL (4.5-5.9); Red Cell Distribution Width 16.6 % (11.6-14.8)
[2018-11-04 09:19] LABS: Add Manual Diff / Slide Review YES
[2018-11-04 09:20] LABS: White Blood Cell Count 34.1 X10^3/uL (4.5-11.0)
[2018-11-04 09:21] LABS: INR 1.3 (0.9-1.3); Prothrombin Time 15.3 SECONDS (10.1-12.7)
[2018-11-04 09:23] LABS: PTT Partial Thromboplastin Tim 26 SECONDS (26.4-36.2)
[2018-11-04 09:26] LABS: Alanine Aminotransferase 7 IU/L (21-72); Albumin 3.2 g/dL (3.5-5.0); Albumin Globulin Ratio 0.9 (1.0-2.8); Alkaline Phosphatase 91 U/L (38-126); Aspartate Aminotransferase 15 IU/L (17-59); Blood Urea Nitrogen 33 mg/dL (9-20); Calcium 8.5 mg/dL (8.4-10.2); Carbon Dioxide 25 mmol/L (22-32); Chloride 101 mmol/L (98-107); Estimated Glomerular Filt Rate > 60.0 mL/min (>60); Globulin 3.6 g/dL (1.7-4.1); Glucose 117 mg/dL (80-110); HEMOLYSIS < 15 (0-50); Potassium 3.8 mmol/L (3.4-5.1); Sodium 137 mmol/L (137-145); Total Protein 6.8 g/dL (6.3-8.2)
[2018-11-04] MEDS: SODIUM CHLORIDE 0.9% 1,000 ML 1000 ML IV (09:32)
[2018-11-04 09:37] LABS: Troponin I < 0.012 ng/mL (0.01-0.034)
[2018-11-04 09:39] LABS: Neutrophils Absolute Manual 19437 /uL (3000-5900); Total Cells Counted 100
[2018-11-04 09:42] LABS: Anisocytosis 1+; Poikilocytosis 1+
[2018-11-04 10:03] LABS: RBC Urine None Seen (0-5/HPF)
[2018-11-04 10:05] LABS: Appearance Urine UA CLEAR; Bilirubin Urine UA 2+ (NEGATIVE); Color Urine UA YELLOW; Glucose Urine UA NEGATIVE (Negative); Ketones Urine UA 1+ (NEGATIVE); Leukocyte Esterase Urine UA NEGATIVE (NEGATIVE); Nitrite Urine UA NEGATIVE (Negative); Occult Blood Urine UA NEGATIVE (Negative); Protein Urine UA 1+ (Negative); pH Urine UA 5.5 (4.5-8.0)
[2018-11-04 10:10] LABS: Thyroid Stimulating Hormone 8.43 uIU/mL (0.47-4.68)
[2018-11-04 10:22] LABS: Ictotest Urine Positive (Negative); WBC Urine 0-1/HPF (0-5/HPF)
[2018-11-04 10:23] LABS: Amorphous Sediment Urine 1+; Bacteria Urine Occasional (0-1); Culture Indicated Urine Cult Not Indicated; Mucus Urine 2+ (Negative)
--- NOTE | 2018-11-04 10:38 | PC.NURSE ---
Pt resting in bed. NAD. remains on cardiac monitoring. 2nd set BC and lactate drawn. tolerated well. Will continue to monitor
[2018-11-04 10:58] LABS: Lactate (Lactic Acid) 1.7 mmol/L (0.7-2.1)
--- NOTE | 2018-11-04 11:24 | PC.NURSE ---
fluids completed per MAY. 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 placed on bedpan. tolerated well. No BM. NAD.
--- NOTE | 2018-11-04 11:35 | ONC.MSW ---
Description: Care Coordination/Goals Conversation re: End of Life Activity: AERONAUTICS COMMISSION DIRECTOR met again with pt's , brother and [id number] while they were waiting in the lobby-pt still in ER. was very tearful. Brother expressed concerns about pt beginning a new chemo/immunotherapy, given his recent rapid decline. They are asking about when to be referred to hospice, and what to expect with hospice services. AERONAUTICS COMMISSION DIRECTOR explained that they could have an informational visit from hospice to explain the program and services, and that the focus changes from active treatment to comfort measures only, symptom management and quality of life. AERONAUTICS COMMISSION DIRECTOR also explained the additional support for the family, including ongoing bereavement. Both patient and his are developmentally delayed. They have very strong family support through patient's brother Sang and his , as well as many friends at [facility]. They also discuss having a well established relationship with their Leather Scrubber ([facility] radio station engineer), Ben Felton. was expressing questions and concerns re: her Yazidi joanne and struggling with guilt over feeling worried about pt. AERONAUTICS COMMISSION DIRECTOR offered to call Ben and request that he visit to offer spiritual care and counseling, which she very much agreed to. AERONAUTICS COMMISSION DIRECTOR will also f/u with requesting the hospice info visit. *Pt is a DNR.
--- NOTE | 2018-11-04 12:09 | PC.NURSE ---
Report given to ELI Braswelllong term care administrator.
--- NOTE | 2018-11-04 13:52 | PT-IP ANOTE ---
Physical Therapy order received. Chart reviewed. Discussed his case with his nurse. Pt continues to be very lethargic at this time. Will hold evaluation until tomorrow.
--- NOTE | 2018-11-04 14:07 | PM.CHAP ---
Good visit w/ patient's , brother & sister in law. Decision re possible Hospice care reveiwed. Prayer with family. Contact w/ Gregoria in CC unit who will follow up re possible Hospice care in near future.
--- NOTE | 2018-11-04 14:26 | OT.IP.TRT ---
Occupational Therapy Treatment Note M3 OT- IP Subjective and Pain Start: 11/04/18 14:26 Freq: Status: Active Protocol: Document 11/04/18 14:26 PJM (Rec: 11/04/18 14:30 PJM [id number]) OT- Subjective Occupational Therapy Visit Type Type Administrative Note Visit Start Time 14:26 Notes OT referral received. Pt has not yet been seen by hospitalist and pt has new wound under armpit that requires care per RN. RN requests hold today. Will check pt's status in AM and initiate evaluation as medical permits.
--- NOTE | 2018-11-04 14:55 | PC.ADMIT ---
DECLINED 10/26/[address] Admission Note: PATIENT'S SPOUSE AND BROTHER PRESENT DURING ADMISSION ASSESSMENT. PATIENT CAME TO ACUTE CARE UNIT W/ STAGE 2 PRESSURE INJURY X2 TO RIGHT GLUTEAL FOLD W/ DRY WOUND BED TO LARGER SITE, AND MOIST WOUND BED TO SECOND SITE. SURROUNDING AREAS OF DRY SLIGHTLY SCABBED ESCORIATION. PHOTOS OBTAINED AND PLACED IN CHART. RIGHT AXILLA W/ LARGE PROTRUDING WOUND/ABCESS WITH FULL THICKNESS SKIN LOSS DARK RED WOUND BASE WITH CONSTANT SCANT OOZING. APPLIED 4X4 MOIST W/ SALINE AND CHUX WRAP AND NOTIFIED DR. SALAS WHO CAME IN TO ASSESS. APPARENTLY THIS WAS A BX SITE. DR. SALAS INDICATED THAT HE WOULD HAVE A SURGICAL CONSULT ENTERED FOR SAME. THE SURROUNDING TISSUE HAS SOME PURPLISH APPEARANCE. The patient,Jim Can,68 y/o, was given written information regarding hospital policies, unit procedures and contact persons. Patient's smoking status: Never smoker. Vital Signs - 8 hr 11/04/18 09:09 11/04/18 10:03 11/04/18 10:04 Temperature 97.5 F L Pulse Rate 93 H 88 87 Respiratory Rate 28 H 24 14 Blood Pressure 128/83 Blood Pressure [Left Arm] 130/67 130/67 Pulse Oximetry 95 95 95 11/04/18 11:00 11/04/18 12:00 11/04/18 12:07 Temperature Pulse Rate 91 H 80 80 Respiratory Rate 20 24 Blood Pressure Blood Pressure [Left Arm] 125/61 127/60 125/61 Pulse Oximetry 93 96 96 11/04/18 13:13 Temperature 98.8 F Pulse Rate 87 Respiratory Rate 32 H Blood Pressure 137/70 Blood Pressure [Left Arm] Pulse Oximetry 93
--- NOTE | 2018-11-04 17:45 | P.HP_ITS ---
History of Present Illness Date Patient Seen: 11/04/18 Time Patient Seen: 14:30 Chief complaint: Lethargic Narrative: This is a 68-year-old male with past medical history of anaplastic thyroid cancer and hypothyroidism to the emergency department for lethargy. The patient himself states that he is here for hematuria, but he endorses weakness and worsening fatigue. He feels like his weakness has been worse over the past few weeks, nothing seems to improve this recently. He recently started a new chemotherapy regimen. He denies fevers, chills, nausea, vomiting, chest pain, pressure, cough, abdominal pain, constipation, diarrhea, or dysuria. He feels like sometimes it is hard to take a deep breath, but this is unchanged recently. He falls asleep easily during exam, but responds to simple questions and is alert and oriented x3. The is currently unavailable at bedside for further history. In the ED, his UA was negative for blood, CBC showed a leukocytosis to 34,000 but no other evidence of infection. This was discussed by the ED with the oncologist Dr. Waggoner who follows him and he suspected a possible leukemoid reaction. Chest x-ray done in the emergency room showed increasing size of known metastases, but no apparent infiltrates. He was admitted under observation status for weakness and leukocytosis. Patient History Medical History Abnormal CT scan, neck (Chronic) Mediastinal mass (Chronic) Vocal cord paralysis (Chronic) BPH loc w urin obs/LUTS (Acute) Cancer of neck (Acute) Difficulty swallowing (Acute) Hiatal hernia (Acute) GERD (gastroesophageal reflux disease) (Chronic Unknown) Gout (Chronic Unknown) Hyperlipemia (Chronic Unknown) Hypertension (Chronic Unknown) Chickenpox (Resolved) Hemorrhoids (Resolved Unknown) Hx of cardiac arrhythmia (Resolved Unknown) Hx of deep venous thrombosis (Resolved 01/2016) Measles (Resolved) Mumps (Resolved) Surgical History Hx of bilateral cataract extraction (Acute ~2015) S/P bronchoscopy with biopsy (Acute 09/03/18) History of tonsillectomy and adenoidectomy (Resolved Unknown) Hx of appendectomy (Resolved Unknown) Hx of bilateral inguinal hernia repair (Resolved 12/2016) Family History (Updated 09/25/18 @ 14:38 by Pawan Waggoner MD) Sister Cancer Family/Other Cancer Family/Other Colon cancer Social History marital status: household members: spouse occupational status: previously employed Smoking Status: Never smoker alcohol intake: never substance use type: does not use Family & Social History Family History Sister Cancer Family/Other Cancer Family/Other Colon cancer Social History: household members spouse Prior Living Arrangements Half-Way Facility Safety & Behavioral: Feels Safe in Current Yes Environment Been Physically Hurt or No Threatened By a Person Suicidal Ideation Description None Suicide Plan Description No Plan Tobacco & Substance use: Smoking Status Never smoker alcohol intake never alcohol intake frequency 0-2 drinks per day Substance Use Type does not use Meds Home Medications Medication Instructions Recorded Confirmed Type levothyroxine 75 mcg PO DAILY #30 tab 10/30/18 11/04/18 Rx trametinib [Mekinist] 2 mg PO Q24H 30 Days #30 tab 10/30/18 11/04/18 Rx Citracal Powder 1 dose PO DAILY 11/04/18 11/04/18 History Allergies Allergy/AdvReac Type Severity Reaction Status Date / Time No Known Drug Allergies Allergy Verified 10/23/18 09:46 Review of Systems Review of Systems All other systems reviewed with the patient and are negative unless otherwise stated. Exam Vital Signs (past 8 hours): - 11/04/18 10:03 11/04/18 10:04 11/04/18 11:00 Temperature Pulse Rate 88 87 91 H Respiratory Rate 24 14 Blood Pressure Blood Pressure [Left Arm] 130/67 130/67 125/61 Pulse Oximetry 95 95 93 11/04/18 12:00 11/04/18 12:07 11/04/18 13:13 Temperature 98.8 F Pulse Rate 80 80 87 Respiratory Rate 20 24 32 H Blood Pressure 137/70 Blood Pressure [Left Arm] 127/60 125/61 Pulse Oximetry 96 96 93 11/04/18 15:00 11/04/18 15:37 Temperature 99.2 F Pulse Rate 85 Respiratory Rate 20 Blood Pressure 133/74 Blood Pressure [Left Arm] Pulse Oximetry 96 93 Oxygen Delivery Method Room Air Oxygen Flow Rate 0 Narrative Exam Narrative: GENERAL APPEARANCE: Chronically ill appearing, fatigued, shallow breaths. SKIN: Upper chest wall skin changes consistent with metastatic findings, in the right axilla there appears to be a necrotic wound, potentially malignant from a possible biopsy site. HEENT: The sclerae were anicteric and conjunctivae were pink and moist. Extraocular movements were intact and pupils were equal, round with normal accommodation. External inspection of the ears and nose showed no scars, lesion s, or masses. Lips, teeth, and gums showed normal mucosa. The oral mucosa, hard and soft palate, tongue and posterior pharynx were unremarkable. NECK: There is a firm, non-tender neck mass prominently on the L > R, R axilla also has firm non-mobile and necrotic wound as noted above. CHEST: Normal AP diameter and normal contour without any kyphoscoliosis. LUNGS: Auscultation of the lungs revealed no wheezes, rhonchi, or rales. CARDIOVASCULAR: There was a regular rate and rhythm without any murmurs, gallops, rubs. Peripheral pulses were 2+ and symmetric. ABDOMEN: Soft and nontender with normal bowel sounds. No ascites was noted. MUSCULOSKELETAL: There was no tenderness or effusions noted. Muscle strength and tone were normal. EXTREMITIES: No cyanosis, clubbing or edema. NEUROLOGIC: Alert and oriented x 3. Normal affect. Gait was normal. Strength is +5/5 in the Upper Extremities and Lower Extremities Bilaterally. Sensation to touch was normal. Objective ECG Impression: My interpretation is NSR, unchanged compared to prior exams. Labs Result Diagrams: 11/04/18 09:05 11/04/18 09:05 Labs: Laboratory Results - last 24 hr 11/04/18 11/04/18 11/04/18 09:05 09:05 09:05 WBC 34.1 H* RBC 4.35 L Hgb 12.5 L Hct 37.5 L MCV 86.2 MCH 28.7 MCHC 33.3 RDW 16.6 H Plt Count 318 Neut % (Auto) Not Reportable Lymph % (Auto) Not Reportable [place] % (Auto) Not Reportable Eos % (Auto) Not Reportable Baso % (Auto) Not Reportable Lymph # (Auto) Not Reportable [place] # (Auto) Not Reportable Baso # (Auto) Not Reportable Total Counted 100 Seg Neutrophils % 48.0 Band Neutrophils % 9.0 H Lymphocytes % (Manual) 5.0 L Monocytes % (Manual) 5.0 Eosinophils % (Manual) 33.0 H Neutrophils # (Manual) 54457 H RBC Morphology See below Poikilocytosis 1+ H Anisocytosis 1+ H PT 15.3 H INR 1.3 APTT 26 L Sodium 137 Potassium 3.8 Chloride 101 Carbon Dioxide 25 BUN 33 H Creatinine 0.60 L Estimated GFR > 60.0 BUN/Creatinine Ratio 55.0 H Glucose 117 H Lactate Calcium 8.5 Total Bilirubin 1.0 AST 15 L ALT 7 L Alkaline Phosphatase 91 Troponin I < 0.012 Total Protein 6.8 Albumin 3.2 L Globulin 3.6 Albumin/Globulin Ratio 0.9 L TSH Urine Color Urine Appearance Urine pH Ur Specific [place] Urine Protein Urine Glucose (UA) Urine Ketones Urine Occult Blood Urine Nitrate Urine Bilirubin Urine Ictotest Urine Urobilinogen Ur Leukocyte Esterase Urine RBC Urine WBC Amorphous Sediment Urine Bacteria Urine Mucus Ur Culture Indicated? 11/04/18 11/04/18 11/04/18 09:05 09:55 10:35 WBC RBC Hgb Hct MCV MCH MCHC RDW Plt Count Neut % (Auto) Lymph % (Auto) [place] % (Auto) Eos % (Auto) Baso % (Auto) Lymph # (Auto) [place] # (Auto) Baso # (Auto) Total Counted Seg Neutrophils % Band Neutrophils % Lymphocytes % (Manual) Monocytes % (Manual) Eosinophils % (Manual) Neutrophils # (Manual) RBC Morphology Poikilocytosis Anisocytosis PT INR APTT Sodium Potassium Chloride Carbon Dioxide BUN Creatinine Estimated GFR BUN/Creatinine Ratio Glucose Lactate 1.7 Calcium Total Bilirubin AST ALT Alkaline Phosphatase Troponin I Total Protein Albumin Globulin Albumin/Globulin Ratio TSH 8.43 H D Urine Color Yellow Urine Appearance Clear Urine pH 5.5 Ur Specific [place] 1.020 Urine Protein 1+ H Urine Glucose (UA) Negative Urine Ketones 1+ H Urine Occult Blood Negative Urine Nitrate Negative Urine Bilirubin 2+ H Urine Ictotest Positive H Urine Urobilinogen 2.0 H Ur Leukocyte Esterase Negative Urine RBC None seen Urine WBC 0-1/hpf Amorphous Sediment 1+ Urine Bacteria Occasional (0-1) Urine Mucus 2+ H Ur Culture Indicated? Cult not indicated Assessment & Plan Assessment & Plan narrative: This is a 68-year-old male with past medical history of anaplastic thyroid cancer and hypothyroidism to the emergency department for lethargy, admitted to observation for generalized weakness and leukocytosis. 1. Generalized weakness, chronic, present on admission - likely secondary to new Debrafinib and Tremetinib initiation. Unlikely infectious source given absense of fever, however his R axilla may be a possible source of infection. It would also be very difficult to see if there is a pneumonia present on imaging. He has had poor PO intake secondary to tumor burden and chronic malnutrition is also a possibility. Initial troponin negative so unlikely ACS, given no chest pain or EKG changes. - PT/OT - will discuss family regarding nutritional options and how they wish to proceed. 2. Leukocytosis, active, present on admission - possible leukemoid reaction. Other active infectious possibilities include open wound in R axilla and it would be difficult to view a pneumonia on XR given extensive metastases present. - will cover with ceftriaxone for now to see if improvement. - Surgery consult to evaluate R axillary wound for possible debridement 3. Hypothyroidism - recently started on levothyroxine 75 mcg in the oncology clinic, TSH is 8 today which is improved since initiation. Will continue this dosing for now. - levothyroxine 75 mcg 4. Anaplastic thyroid cancer, chronic, present on admission - Patient follows with Dr. Waggoner here. 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 Recently started Debrafinib / Tremetinib therapy. - hold chemotherapy. 5. Moderate protein calorie malnutrition - patient appears to have some muscle wasting on exam given chronically ill appearance, albumin is 3.2. This is likely due to recent poor PO intake and active malignancy. 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 DVT: Lovenox Code: DNR/DNI, will need to discuss further options with family when they arrive. Quality VTE Deep Vein Thrombosis/Pulmonary Embolism Present on Admission: No
[2018-11-04] MEDS: CEFTRIAXONE 1 GM/50 ML FROZ.PIGGY IV (19:01)
[2018-11-04] MEDS: DEXTROSE 5%-0.45% NS 1,000 ML 50 ML IV (19:01)
--- NOTE | 2018-11-04 20:14 | PM.CN ---
History of Present Illness Date Patient Seen: 11/04/18 Time Patient Seen: 20:00 Chief complaint: Lethargic Reason for consult: Right axillary wound Narrative: Brief general surgery note -this is a 68-year-old male now hospital day 1 admitted for lethargy. Quite well known to me. Briefly presented initially with left vocal cord paralysis and found to have a superior mediastinal mass well over a year ago. Significant delay in following up on care. Re-presented to me where underwent extensive endoscopic evaluation for primary site including bronchoscopy, laryngoscopy, esophagoscopy, nasopharyngealoscopy, underwent a excisional lymph node biopsy of the left inferior neck -diagnostic of large-cell epithelioid poorly differentiated tumor -pathology unable to definitively call primary tissue site -but multiple clinical and pathologic features of anaplastic thyroid cancer. Patient received a excisional axillary lymph node biopsy on the right -for gene sequencing and receptor profile. That wound on the R axillia has open -with a sizable malignant eroding cancer under neath the site. The fungating tissue within the wound with a limited degree devitalized tissue -is tumor. Overall sites of tumor much more enlarged clinically, and patient much more fragile and fatigued than when I last saw him in clinic Recommendations: Agree with Oncology -would start/continue Trametinib As to the R axillary wound: keep covered with dry gauze and change daily -significant bleeding risk to debriding an erroding tumor. Doubt acutely infected. Given the aggressive nature of the cancer -without effective chemotherapy - remains to be seen if the kinase inhibitor is effective - I do not expect the wound to heal. I expect the wound to continue to have ongoing stages of devitalized tissue within it for the duration [facility] Medical History Abnormal CT scan, neck (Chronic) Mediastinal mass (Chronic) Vocal cord paralysis (Chronic) BPH loc w urin obs/LUTS (Acute) Cancer of neck (Acute) Difficulty swallowing (Acute) Hiatal hernia (Acute) GERD (gastroesophageal reflux disease) (Chronic Unknown) Gout (Chronic Unknown) Hyperlipemia (Chronic Unknown) Hypertension (Chronic Unknown) Chickenpox (Resolved) Hemorrhoids (Resolved Unknown) Hx of cardiac arrhythmia (Resolved Unknown) Hx of deep venous thrombosis (Resolved 01/2016) Measles (Resolved) Mumps (Resolved) Surgical History Hx of bilateral cataract extraction (Acute ~2015) S/P bronchoscopy with biopsy (Acute 09/03/18) History of tonsillectomy and adenoidectomy (Resolved Unknown) Hx of appendectomy (Resolved Unknown) Hx of bilateral inguinal hernia repair (Resolved 12/2016) Family History (Updated 09/25/18 @ 14:38 by Pawan Waggoner MD) Sister Cancer Family/Other Cancer Family/Other Colon cancer Social History marital status: household members: spouse occupational status: previously employed Smoking Status: Never smoker alcohol intake: never substance use type: does not use Family History Sister Cancer Family/Other Cancer Family/Other Colon cancer Social History marital status: household members: spouse occupational status: previously employed Smoking Status: Never smoker alcohol intake: never substance use type: does not use Meds Home Medications Medication Instructions Recorded Confirmed Type levothyroxine 75 mcg PO DAILY #30 tab 10/30/18 11/04/18 Rx trametinib [Mekinist] 2 mg PO Q24H 30 Days #30 tab 10/30/18 11/04/18 Rx Citracal Powder 1 dose PO DAILY 11/04/18 11/04/18 History Allergies Allergy/AdvReac Type Severity Reaction Status Date / Time No Known Drug Allergies Allergy Verified 10/23/18 09:46 Exam Vital Signs (past 8 hours): - 11/04/18 13:13 11/04/18 15:00 11/04/18 15:37 Temperature 98.8 F 99.2 F Pulse Rate 87 85 Respiratory Rate 32 H 20 Blood Pressure 137/70 133/74 Pulse Oximetry 93 96 93 11/04/18 19:14 Temperature 99.3 F Pulse Rate 102 H Respiratory Rate 20 Blood Pressure 144/77 H Pulse Oximetry 92 Oxygen Delivery Method Room Air Oxygen Flow Rate 0 Objective Labs Result Diagrams: 11/04/18 09:05 11/04/18 09:05 Labs: Laboratory Results - last 24 hr 11/04/18 11/04/18 11/04/18 09:05 09:05 09:05 WBC 34.1 H* RBC 4.35 L Hgb 12.5 L Hct 37.5 L MCV 86.2 MCH 28.7 MCHC 33.3 RDW 16.6 H Plt Count 318 Neut % (Auto) Not Reportable Lymph % (Auto) Not Reportable [place] % (Auto) Not Reportable Eos % (Auto) Not Reportable Baso % (Auto) Not Reportable Lymph # (Auto) Not Reportable [place] # (Auto) Not Reportable Baso # (Auto) Not Reportable Total Counted 100 Seg Neutrophils % 48.0 Band Neutrophils % 9.0 H Lymphocytes % (Manual) 5.0 L Monocytes % (Manual) 5.0 Eosinophils % (Manual) 33.0 H Neutrophils # (Manual) 48512 H RBC Morphology See below Poikilocytosis 1+ H Anisocytosis 1+ H PT 15.3 H INR 1.3 APTT 26 L Sodium 137 Potassium 3.8 Chloride 101 Carbon Dioxide 25 BUN 33 H Creatinine 0.60 L Estimated GFR > 60.0 BUN/Creatinine Ratio 55.0 H Glucose 117 H Lactate Calcium 8.5 Total Bilirubin 1.0 AST 15 L ALT 7 L Alkaline Phosphatase 91 Troponin I < 0.012 Total Protein 6.8 Albumin 3.2 L Globulin 3.6 Albumin/Globulin Ratio 0.9 L TSH Urine Color Urine Appearance Urine pH Ur Specific [place] Urine Protein Urine Glucose (UA) Urine Ketones Urine Occult Blood Urine Nitrate Urine Bilirubin Urine Ictotest Urine Urobilinogen Ur Leukocyte Esterase Urine RBC Urine WBC Amorphous Sediment Urine Bacteria Urine Mucus Ur Culture Indicated? 11/04/18 11/04/18 11/04/18 09:05 09:55 10:35 WBC RBC Hgb Hct MCV MCH MCHC RDW Plt Count Neut % (Auto) Lymph % (Auto) [place] % (Auto) Eos % (Auto) Baso % (Auto) Lymph # (Auto) [place] # (Auto) Baso # (Auto) Total Counted Seg Neutrophils % Band Neutrophils % Lymphocytes % (Manual) Monocytes % (Manual) Eosinophils % (Manual) Neutrophils # (Manual) RBC Morphology Poikilocytosis Anisocytosis PT INR APTT Sodium Potassium Chloride Carbon Dioxide BUN Creatinine Estimated GFR BUN/Creatinine Ratio Glucose Lactate 1.7 Calcium Total Bilirubin AST ALT Alkaline Phosphatase Troponin I Total Protein Albumin Globulin Albumin/Globulin Ratio TSH 8.43 H D Urine Color Yellow Urine Appearance Clear Urine pH 5.5 Ur Specific [place] 1.020 Urine Protein 1+ H Urine Glucose (UA) Negative Urine Ketones 1+ H Urine Occult Blood Negative Urine Nitrate Negative Urine Bilirubin 2+ H Urine Ictotest Positive H Urine Urobilinogen 2.0 H Ur Leukocyte Esterase Negative Urine RBC None seen Urine WBC 0-1/hpf Amorphous Sediment 1+ Urine Bacteria Occasional (0-1) Urine Mucus 2+ H Ur Culture Indicated? Cult not indicated
--- NOTE | 2018-11-04 20:24 | P.CONS_ITS ---
History of Present Illness Date Patient Seen: 11/04/18 Time Patient Seen: 20:00 Chief complaint: Lethargic Reason for consult: Right axillary wound Narrative: Brief general surgery note -this is a 68-year-old male now hospital day 1 admitted for lethargy. Quite well known to me. Briefly presented initially with left vocal cord paralysis and found to have a superior mediastinal mass well over a year ago. Significant delay in following up on care. Re-presented to me where underwent extensive endoscopic evaluation for primary site including bronchoscopy, laryngoscopy, esophagoscopy, nasopharyngealoscopy, underwent a excisional lymph node biopsy of the left i nferior neck -diagnostic of large-cell epithelioid poorly differentiated tumor - pathology unable to definitively call primary tissue site -but multiple clinical and pathologic features of anaplastic thyroid cancer. Patient received a excisional axillary lymph node biopsy on the right -for gene sequencing and receptor profile. That wound on the R axillia has open -with a sizable malignant eroding cancer under neath the site. The fungating tissue within the wound with a limited degree devitalized tissue -is tumor. Overall sites of tumor much more enlarged clinically, and patient much more f ragile and fatigued than when I last saw him in clinic Recommendations: Agree with Oncology -would start/continue Trametinib As to the R axillary wound: keep covered with dry gauze and change daily - significant bleeding risk to debriding an erroding tumor. Doubt acutely infected. Given the aggressive nature of the cancer -without effective chemotherapy - remains to be seen if the kinase inhibitor is effective - I do not expect the wound to heal. I expect the wound to continue to have ongoing stages of devitalized tissue within it for the duration [facility] Medical History Abnormal CT scan, neck (Chronic) Mediastinal mass (Chronic) Vocal cord paralysis (Chronic) BPH loc w urin obs/LUTS (Acute) Cancer of neck (Acute) Difficulty swallowing (Acute) Hiatal hernia (Acute) GERD (gastroesophageal reflux disease) (Chronic Unknown) Gout (Chronic Unknown) Hyperlipemia (Chronic Unknown) Hypertension (Chronic Unknown) Chickenpox (Resolved) Hemorrhoids (Resolved Unknown) Hx of cardiac arrhythmia (Resolved Unknown) Hx of deep venous thrombosis (Resolved 01/2016) Measles (Resolved) Mumps (Resolved) Surgical History Hx of bilateral cataract extraction (Acute ~2016) S/P bronchoscopy with biopsy (Acute 09/03/18) History of tonsillectomy and adenoidectomy (Resolved Unknown) Hx of appendectomy (Resolved Unknown) Hx of bilateral inguinal hernia repair (Resolved 12/2016) Family History (Updated 09/25/18 @ 14:38 by Pawan Waggoner MD) Sister Cancer Family/Other Cancer Family/Other Colon cancer Social History marital status: household members: spouse occupational status: previously employed Smoking Status: Never smoker alcohol intake: never substance use type: does not use Family History Sister Cancer Family/Other Cancer Family/Other Colon cancer Social History marital status: household members: spouse occupational status: previously employed Smoking Status: Never smoker alcohol intake: never substance use type: does not use Meds Home Medications Medication Instructions Recorded Confirmed Type levothyroxine 75 mcg PO DAILY #30 tab 10/30/18 11/04/18 Rx trametinib [Mekinist] 2 mg PO Q24H 30 Days #30 tab 10/30/18 11/04/18 Rx Citracal Powder 1 dose PO DAILY 11/04/18 11/04/18 History Allergies Allergy/AdvReac Type Severity Reaction Status Date / Time No Known Drug Allergies Allergy Verified 10/23/18 09:46 Exam Vital Signs (past 8 hours): - 11/04/18 13:13 11/04/18 15:00 11/04/18 15:37 Temperature 98.8 F 99.2 F Pulse Rate 87 85 Respiratory Rate 32 H 20 Blood Pressure 137/70 133/74 Pulse Oximetry 93 96 93 11/04/18 19:14 Temperature 99.3 F Pulse Rate 102 H Respiratory Rate 20 Blood Pressure 144/77 H Pulse Oximetry 92 Oxygen Delivery Method Room Air Oxygen Flow Rate 0 Objective Labs Result Diagrams: 11/04/18 09:05 11/04/18 09:05 Labs: Laboratory Results - last 24 hr 11/04/18 11/04/18 11/04/18 09:05 09:05 09:05 WBC 34.1 H* RBC 4.35 L Hgb 12.5 L Hct 37.5 L MCV 86.2 MCH 28.7 MCHC 33.3 RDW 16.6 H Plt Count 318 Neut % (Auto) Not Reportable Lymph % (Auto) Not Reportable [place] % (Auto) Not Reportable Eos % (Auto) Not Reportable Baso % (Auto) Not Reportable Lymph # (Auto) Not Reportable [place] # (Auto) Not Reportable Baso # (Auto) Not Reportable Total Counted 100 Seg Neutrophils % 48.0 Band Neutrophils % 9.0 H Lymphocytes % (Manual) 5.0 L Monocytes % (Manual) 5.0 Eosinophils % (Manual) 33.0 H Neutrophils # (Manual) 29076 H RBC Morphology See below Poikilocytosis 1+ H Anisocytosis 1+ H PT 15.3 H INR 1.3 APTT 26 L Sodium 137 Potassium 3.8 Chloride 101 Carbon Dioxide 25 BUN 33 H Creatinine 0.60 L Estimated GFR > 60.0 BUN/Creatinine Ratio 55.0 H Glucose 117 H Lactate Calcium 8.5 Total Bilirubin 1.0 AST 15 L ALT 7 L Alkaline Phosphatase 91 Troponin I < 0.012 Total Protein 6.8 Albumin 3.2 L Globulin 3.6 Albumin/Globulin Ratio 0.9 L TSH Urine Color Urine Appearance Urine pH Ur Specific [place] Urine Protein Urine Glucose (UA) Urine Ketones Urine Occult Blood Urine Nitrate Urine Bilirubin Urine Ictotest Urine Urobilinogen Ur Leukocyte Esterase Urine RBC Urine WBC Amorphous Sediment Urine Bacteria Urine Mucus Ur Culture Indicated? 11/04/18 11/04/18 11/04/18 09:05 09:55 10:35 WBC RBC Hgb Hct MCV MCH MCHC RDW Plt Count Neut % (Auto) Lymph % (Auto) [place] % (Auto) Eos % (Auto) Baso % (Auto) Lymph # (Auto) [place] # (Auto) Baso # (Auto) Total Counted Seg Neutrophils % Band Neutrophils % Lymphocytes % (Manual) Monocytes % (Manual) Eosinophils % (Manual) Neutrophils # (Manual) RBC Morphology Poikilocytosis Anisocytosis PT INR APTT Sodium Potassium Chloride Carbon Dioxide BUN Creatinine Estimated GFR BUN/Creatinine Ratio Glucose Lactate 1.7 Calcium Total Bilirubin AST ALT Alkaline Phosphatase Troponin I Total Protein Albumin Globulin Albumin/Globulin Ratio TSH 8.43 H D Urine Color Yellow Urine Appearance Clear Urine pH 5.5 Ur Specific [place] 1.020 Urine Protein 1+ H Urine Glucose (UA) Negative Urine Ketones 1+ H Urine Occult Blood Negative Urine Nitrate Negative Urine Bilirubin 2+ H Urine Ictotest Positive H Urine Urobilinogen 2.0 H Ur Leukocyte Esterase Negative Urine RBC None seen Urine WBC 0-1/hpf Amorphous Sediment 1+ Urine Bacteria Occasional (0-1) Urine Mucus 2+ H Ur Culture Indicated? Cult not indicated
[2018-11-04] MEDS: ACETAMINOPHEN 325 MG TABLET 650 MG PO (23:31)
[2018-11-05] VITALS (8 sets, daily range): BP systolic 135–145; BP diastolic 50–88; PULSE 86–96; RESP 20–40; TEMP 36.8–38.3; O2SAT 92–96; BMI 23.8
--- NOTE | 2018-11-05 03:44 | PC.NURSE ---
Pt is AxOx3, some delayed responses and flat affect. Appears to maybe have some difficulty swallowing. Pt says its easier to drink without a straw, coughed once or twice after drinking. HOB fully elevated when drinking. Febrile at 101.2F, given tylenol and temperature came down to 98.5F Tachypneic at 40 RR; SOLOMON Reed notified and ordered ABG. Pt does not appear to be in any acute respiratory distress. He says he doesn't feel particularly SOB and hasn't noticed a big change in breathing. On room air at 92% breathing shallow. Turned and positioned q2h with pillow support. Dark Humera urine. IVF running as ordered. Right axillary wound draining sero-sanguinous drainage. Changed and replaced gauze and tape. Tele: NSR, BBB. Denies chest pain
[2018-11-05 06:22] LABS: Hematocrit 35.2 % (41-53); Hemoglobin 11.7 g/dL (13.5-17.5); Mean Corpuscular HGB Conc 33.3 % (30-36); Mean Corpuscular Hemoglobin 28.5 PG (26-34); Mean Corpuscular Volume 85.6 fL (80-100); Platelet Count 307 X10^3/uL (150-400); Red Blood Cell Count 4.11 X10^6/uL (4.5-5.9); Red Cell Distribution Width 16.7 % (11.6-14.8)
[2018-11-05 06:24] LABS: Alanine Aminotransferase 8 IU/L (21-72); Albumin 2.9 g/dL (3.5-5.0); Albumin Globulin Ratio 0.9 (1.0-2.8); Alkaline Phosphatase 89 U/L (38-126); Aspartate Aminotransferase 16 IU/L (17-59); BUN Creatinine Ratio 37.1 (6-22); Blood Urea Nitrogen 26 mg/dL (9-20); Calcium 8.1 mg/dL (8.4-10.2); Carbon Dioxide 26 mmol/L (22-32); Chloride 104 mmol/L (98-107); Estimated Glomerular Filt Rate > 60.0 mL/min (>60); Globulin 3.4 g/dL (1.7-4.1); Glucose 126 mg/dL (80-110); HEMOLYSIS < 15 (0-50); Magnesium 2.4 mg/dL (1.6-2.3); Potassium 3.5 mmol/L (3.4-5.1); Sodium 138 mmol/L (137-145); Total Protein 6.3 g/dL (6.3-8.2)
[2018-11-05 06:55] LABS: Add Manual Diff / Slide Review YES; White Blood Cell Count 32.9 X10^3/uL (4.5-11.0)
[2018-11-05 07:04] LABS: Acinetobacter baumannii Not Detected (Not Detect); Candida albicans Not Detected (Not Detect); Candida glabrata Not Detected (Not Detect); Candida krusei Not Detected (Not Detect); Candida parapsilosis Not Detected (Not Detect); Candida tropicalis Not Detected (Not Detect); E. coli Not Detected (Not Detect); Enterobacter cloacae complex Not Detected (Not Detect); Enterobacteriaceae species Not Detected (Not Detect); Enterococcus species Not Detected (Not Detect); Haemophilus influenzae Not Detected (Not Detect); Listeria monocytogenes Not Detected (Not Detect); Neisseria meningitidis Not Detected (Not Detect); Proteus species Not Detected (Not Detect); Pseudomonas aeruginosa Not Detected (Not Detect); Serratia marcescens Not Detected (Not Detect); Staphylococcus species Detected (Not Detect); Streptococcus agalactiae (Gr B Not Detected (Not Detect); Streptococcus pneumonia Not Detected (Not Detect); Streptococcus pyogenes (Gr A) Not Detected (Not Detect); Streptococcus species Not Detected (Not Detect)
[2018-11-05 07:30] LABS: Neutrophils Absolute Manual 24017 /uL (3000-5900); Total Cells Counted 100
[2018-11-05 07:31] LABS: Anisocytosis 1+
[2018-11-05 07:33] LABS: Toxic Granulation Present
[2018-11-05] MEDS: VANCOMYCIN 1,250 MG in SODIUM CHLORIDE 0.9% 250 ML IV ×3 (08:57→23:40)
[2018-11-05] MEDS: ENOXAPARIN 40 MG/0.4 ML SYRINGE SUBCUT (08:58)
[2018-11-05] MEDS: ACETAMINOPHEN 325 MG TABLET 650 MG PO (08:58)
--- NOTE | 2018-11-05 10:52 | PT-IP ANOTE ---
Holding physical therapy evaluation at this time. Family and physician to meet and make decisions about patient's care.
--- NOTE | 2018-11-05 10:54 | ONC.MSW ---
Description: T/C re: financial assistance need for pt's new chemo/immunotherapy drugs. Activity: Called pt's brother, Sang, to share that this ELECTRICAL PROJECT ENGINEER called [facility] this morning to clarify if they had set-up delivery for pt's new medications, which they had not. They stated that one of the meds has a $4000/per month co-pay, and the other med has a $500/month co-pay. They have printed out the software licensing executive's applications, and they had been trying to reach pt to discuss this, however his was too confused by what they were trying to say, and thus this has not gone any further. ELECTRICAL PROJECT ENGINEER asked for them to fax here to my attention in order to f/u with family. Sang is feeling unsure if the family want to move forward with applying for this or not. Pt continues to decline, and is no longer eating/drinking. Family will plan to meet with the in hospitalist today to discuss pt's medical status and goals for continued care. Sang will plan to call this ELECTRICAL PROJECT ENGINEER once they have made a decision.
--- NOTE | 2018-11-05 11:01 | ONC.MSW ---
Description: T/C re: financial assistance need for pt's new chemo/immunotherapy drugs. Activity: Called pt's brother, Sang, to share that this BLOCK TRIMMER called [facility] this morning to clarify if they had set-up delivery for pt's new medications, which they had not. They stated that one of the meds has a $4000/per month co-pay, and the other med has a $500/month co-pay. They have printed out the pyrotechnician's applications, and they had been trying to reach pt to discuss this, however his was too confused by what they were trying to say, and thus this has not gone any further. BLOCK TRIMMER asked for them to fax here to my attention in order to f/u with family. Sang is feeling unsure if the family want to move forward with applying for this or not. Pt continues to decline, and is no longer eating, having difficulty with swallowing fluids. Family will plan to meet with the in hospitalist today to discuss pt's medical status and goals for continued care. Sang will plan to call this BLOCK TRIMMER once they have made a decision.
--- NOTE | 2018-11-05 11:39 | OT.IP.TRT ---
Occupational Therapy Treatment Note M3 OT- IP Subjective and Pain Start: 11/04/18 14:26 Freq: Status: Active Protocol: Document 11/05/18 11:38 [facility] (Rec: 11/05/18 11:39 [facility] [id number]) OT- Subjective Occupational Therapy Visit Type Type Administrative Note Notes Hold from OT eval at this time until after family and physician has discussed pt's plan of care.
--- NOTE | 2018-11-05 11:53 | PC.NURSE ---
Pt is Alert but slightly confused. He does have a hard time swallowing food and is on a clear liquid diet. He will cough also with clears. Bernadette went into see patient and states that he has a vocal cord issue and of course he has the thyroid cancer. L.side of neck with tiny purple viens, he also has a lesion under his r.arm pit chest area that is cdi. The dressing was changed this morning. Pt respirations [address] way for two days. LS clear to auscultation. MD is aware of this. When patient wakes up he is much better with breathing and respirations are down. Just check on him and he is comfortably sleeping and respirations are actually better this time sleeping. IVF infusing, Pt is on contact precautions for Staph.
--- NOTE | 2018-11-05 11:57 | ONC.MSW ---
Description: T/C-from , re: hospice Activity: Received call from pt's , Ronni. She has met with the hospitalist this morning and she and pt have decided to not pursue any further aggressive treatment, do not want to move forward with any chemo/oncology medications, and would like to expedite the hospice informational visit so that he can be admitted to hospice as soon as can be arranged. SIZER MACHINE called hospice and updated Lenka in the referral center of this plan. Requested that the info be done while pt is still inpt status, and to arrange this through pt's brother, Sang Squires. Called Sang and updated as well. Pt is choosing only comfort measures, declined wanting to have a peg tube placed for feeding.
--- NOTE | 2018-11-05 15:18 | P.PN_ITS ---
Subjective Subjective Date Patient Seen: 11/05/18 Time Patient Seen: 15:18 Interval history: Right axilla recommended wound care: Dressing change once a day - If any bleeding -coagulate with silver nitrate sticks Cover wound with layer of not adherent dressing -such as petrolatum gauze or adaptic Thank cover with 4x4s to absorb liquid Tape in place or use large adherent dressing. Exam Vital Signs (past 8 hours): - 11/05/18 08:00 11/05/18 12:00 Temperature 101.0 F H 98.5 F Pulse Rate 95 H 90 Respiratory Rate 39 H 32 H Blood Pressure 135/77 141/50 H Pulse Oximetry 93 94 Oxygen Delivery Method Room Air Oxygen Flow Rate 0 Objective Labs Result Diagrams: 11/05/18 05:26 11/05/18 05:26 Labs: Laboratory Results - last 24 hr 11/04/18 11/04/18 11/05/18 09:05 09:05 05:26 WBC 32.9 H* RBC 4.11 L Hgb 11.7 L Hct 35.2 L MCV 85.6 MCH 28.5 MCHC 33.3 RDW 16.7 H Plt Count 307 Neut % (Auto) Not Reportable Lymph % (Auto) Not Reportable [place] % (Auto) Not Reportable Eos % (Auto) Not Reportable Baso % (Auto) Not Reportable Lymph # (Auto) Not Reportable [place] # (Auto) Not Reportable Baso # (Auto) Not Reportable Total Counted 100 Seg Neutrophils % 59.0 Band Neutrophils % 14.0 H Lymphocytes % (Manual) 4.0 L Monocytes % (Manual) 3.0 Eosinophils % (Manual) 19.0 H Metamyelocytes % 1.0 H Neutrophils # (Manual) 47985 H Toxic Granulation Present H RBC Morphology See below Anisocytosis 1+ H Smear Path Review Sodium Potassium Chloride Carbon Dioxide BUN Creatinine Estimated GFR BUN/Creatinine Ratio Glucose Calcium Magnesium Total Bilirubin AST ALT Alkaline Phosphatase Total Protein Albumin Globulin Albumin/Globulin Ratio A. baumannii (PCR) Not detected Kaylin albicans (PCR) Not detected C. glabrata (PCR) Not detected C. krusei (PCR) Not detected C. parapsilosis (PCR) Not detected C. tropicalis (PCR) Not detected Enterobacteriac sp PCR Not detected E. cloacae complex PCR Not detected Enterococcus sp PCR Not detected E. coli (PCR) Not detected H. influenzae (PCR) Not detected Klebsiella oxytoca PCR Not detected Klebsiella pneumoniae Not detected List. monocytogenes PCR Not detected N. meningitidis (PCR) Not detected Proteus species (PCR) Not detected Serratia marcescens PCR Not detected Staphylococcus sp PCR Detected H Staph aureus (PCR) Not detected mecA-Methicil Res Gene Not Reportable Streptococcus sp PCR Not detected Group A Strep (PCR) Not detected Strep agalactiae (PCR) Not detected Strep pneumoniae (PCR) Not detected P. aeruginosa (PCR) Not detected Shahram/B-Vanco Res Genes Not Reportable KPC-Carbap Res Gene PCR Not Reportable 11/05/18 05:26 WBC RBC Hgb Hct MCV MCH MCHC RDW Plt Count Neut % (Auto) Lymph % (Auto) [place] % (Auto) Eos % (Auto) Baso % (Auto) Lymph # (Auto) [place] # (Auto) Baso # (Auto) Total Counted Seg Neutrophils % Band Neutrophils % Lymphocytes % (Manual) Monocytes % (Manual) Eosinophils % (Manual) Metamyelocytes % Neutrophils # (Manual) Toxic Granulation RBC Morphology Anisocytosis Smear Path Review Sodium 138 Potassium 3.5 Chloride 104 Carbon Dioxide 26 BUN 26 H Creatinine 0.70 Estimated GFR > 60.0 BUN/Creatinine Ratio 37.1 H Glucose 126 H Calcium 8.1 L Magnesium 2.4 H Total Bilirubin 1.0 AST 16 L ALT 8 L Alkaline Phosphatase 89 Total Protein 6.3 Albumin 2.9 L Globulin 3.4 Albumin/Globulin Ratio 0.9 L A. baumannii (PCR) Kaylin albicans (PCR) C. glabrata (PCR) C. krusei (PCR) C. parapsilosis (PCR) C. tropicalis (PCR) Enterobacteriac sp PCR E. cloacae complex PCR Enterococcus sp PCR E. coli (PCR) H. influenzae (PCR) Klebsiella oxytoca PCR Klebsiella pneumoniae List. monocytogenes PCR N. meningitidis (PCR) Proteus species (PCR) Serratia marcescens PCR Staphylococcus sp PCR Staph aureus (PCR) mecA-Methicil Res Gene Streptococcus sp PCR Group A Strep (PCR) Strep agalactiae (PCR) Strep pneumoniae (PCR) P. aeruginosa (PCR) Shahram/B-Vanco Res Genes KPC-Carbap Res Gene PCR Quality VTE Deep Vein Thrombosis/Pulmonary Embolism Present on Admission: No
--- NOTE | 2018-11-05 16:53 | DIET.PN ---
Dietary Progress Note Assessment: 68y M admitted for hematuria and increasing fatigue c tx for thyroid Ca. Referred to nutrition r/t pt dysphagia, only drinking shakes for sustenance. 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 Interventions: Pt on clear liquid diet, recc ONS Ensure Clear tid
[2018-11-05] MEDS: CEFTRIAXONE 1 GM/50 ML FROZ.PIGGY IV (17:31)
--- NOTE | 2018-11-05 17:36 | PM.PN.1 ---
Subjective Subjective Date Patient Seen: 11/05/18 Time Patient Seen: 09:30 Interval history: This is a 68-year-old male with past medical history of anaplastic thyroid cancer and hypothyroidism to the emergency department for lethargy, admitted to observation for generalized weakness and leukocytosis. Blood cultures from admission have gram-positive cocci in 2 bottles, however approximately an hour and half later blood cultures were negative. This could represent a bacteremia but it is difficult to tell if the 2 blood cultures were drawn at different sites or not. He remains on ceftriaxone and vancomycin at this time. Today he feels much weaker, and cannot eat more than a tiny bit of Jell-O or applesauce. His was at bedside says that he has become more withdrawn today. I discussed with them both goals of care, the entire family is adamant about not receiving the feeding tube and would like to pursue hospice evaluation. They still would like to continue IV fluids and antibiotics at this time. Exam Vital Signs (past 8 hours): - 11/05/18 12:00 11/05/18 16:39 Temperature 98.5 F 98.5 F Pulse Rate 90 86 Respiratory Rate 32 H 22 Blood Pressure 141/50 H 145/88 H Pulse Oximetry 94 94 Oxygen Delivery Method Room Air Oxygen Flow Rate 0 Narrative Exam Narrative: Chronically ill appearing, fatigued, shallow breaths. SKIN: Upper chest wall skin changes consistent with metastatic findings, in the right axilla there appears to be a necrotic wound, potentially malignant from a possible biopsy site. HEENT: The sclerae were anicteric and conjunctivae were pink and moist. Extraocular movements were intact and pupils were equal, round with normal accommodation. External inspection of the ears and nose showed no scars, lesions, or masses. Lips, teeth, and gums showed normal mucosa. The oral mucosa, hard and soft palate, tongue and posterior pharynx were unremarkable. NECK: There is a firm, non-tender neck mass prominently on the L > R, R axilla also has firm non-mobile and necrotic wound as noted above. CHEST: Normal AP diameter and normal contour without any kyphoscoliosis. LUNGS: Auscultation of the lungs revealed no wheezes, rhonchi, or rales. CARDIOVASCULAR: There was a regular rate and rhythm without any murmurs, gallops, rubs. Peripheral pulses were 2+ and symmetric. ABDOMEN: Soft and nontender with normal bowel sounds. No ascites was noted. MUSCULOSKELETAL: There was no tenderness or effusions noted. Muscle strength and tone were normal. EXTREMITIES: No cyanosis, clubbing or edema. NEUROLOGIC: Alert and oriented x 3. Normal affect. Gait was normal. Strength is +5/5 in the Upper Extremities and Lower Extremities Bilaterally. Sensation to touch was normal. Objective Labs Result Diagrams: 11/05/18 05:26 11/05/18 05:26 Labs: Laboratory Results - last 24 hr 11/04/18 11/04/18 11/05/18 09:05 09:05 05:26 WBC 32.9 H* RBC 4.11 L Hgb 11.7 L Hct 35.2 L MCV 85.6 MCH 28.5 MCHC 33.3 RDW 16.7 H Plt Count 307 Neut % (Auto) Not Reportable Lymph % (Auto) Not Reportable [place] % (Auto) Not Reportable Eos % (Auto) Not Reportable Baso % (Auto) Not Reportable Lymph # (Auto) Not Reportable [place] # (Auto) Not Reportable Baso # (Auto) Not Reportable Total Counted 100 Seg Neutrophils % 59.0 Band Neutrophils % 14.0 H Lymphocytes % (Manual) 4.0 L Monocytes % (Manual) 3.0 Eosinophils % (Manual) 19.0 H Metamyelocytes % 1.0 H Neutrophils # (Manual) 66677 H Toxic Granulation Present H RBC Morphology See below Anisocytosis 1+ H Smear Path Review Sodium Potassium Chloride Carbon Dioxide BUN Creatinine Estimated GFR BUN/Creatinine Ratio Glucose Calcium Magnesium Total Bilirubin AST ALT Alkaline Phosphatase Total Protein Albumin Globulin Albumin/Globulin Ratio A. baumannii (PCR) Not detected Kaylin albicans (PCR) Not detected C. glabrata (PCR) Not detected C. krusei (PCR) Not detected C. parapsilosis (PCR) Not detected C. tropicalis (PCR) Not detected Enterobacteriac sp PCR Not detected E. cloacae complex PCR Not detected Enterococcus sp PCR Not detected E. coli (PCR) Not detected H. influenzae (PCR) Not detected Klebsiella oxytoca PCR Not detected Klebsiella pneumoniae Not detected List. monocytogenes PCR Not detected N. meningitidis (PCR) Not detected Proteus species (PCR) Not detected Serratia marcescens PCR Not detected Staphylococcus sp PCR Detected H Staph aureus (PCR) Not detected mecA-Methicil Res Gene Not Reportable Streptococcus sp PCR Not detected Group A Strep (PCR) Not detected Strep agalactiae (PCR) Not detected Strep pneumoniae (PCR) Not detected P. aeruginosa (PCR) Not detected Shahram/B-Vanco Res Genes Not Reportable KPC-Carbap Res Gene PCR Not Reportable 11/05/18 05:26 WBC RBC Hgb Hct MCV MCH MCHC RDW Plt Count Neut % (Auto) Lymph % (Auto) [place] % (Auto) Eos % (Auto) Baso % (Auto) Lymph # (Auto) [place] # (Auto) Baso # (Auto) Total Counted Seg Neutrophils % Band Neutrophils % Lymphocytes % (Manual) Monocytes % (Manual) Eosinophils % (Manual) Metamyelocytes % Neutrophils # (Manual) Toxic Granulation RBC Morphology Anisocytosis Smear Path Review Sodium 138 Potassium 3.5 Chloride 104 Carbon Dioxide 26 BUN 26 H Creatinine 0.70 Estimated GFR > 60.0 BUN/Creatinine Ratio 37.1 H Glucose 126 H Calcium 8.1 L Magnesium 2.4 H Total Bilirubin 1.0 AST 16 L ALT 8 L Alkaline Phosphatase 89 Total Protein 6.3 Albumin 2.9 L Globulin 3.4 Albumin/Globulin Ratio 0.9 L A. baumannii (PCR) Kaylin albicans (PCR) C. glabrata (PCR) C. krusei (PCR) C. parapsilosis (PCR) C. tropicalis (PCR) Enterobacteriac sp PCR E. cloacae complex PCR Enterococcus sp PCR E. coli (PCR) H. influenzae (PCR) Klebsiella oxytoca PCR Klebsiella pneumoniae List. monocytogenes PCR N. meningitidis (PCR) Proteus species (PCR) Serratia marcescens PCR Staphylococcus sp PCR Staph aureus (PCR) mecA-Methicil Res Gene Streptococcus sp PCR Group A Strep (PCR) Strep agalactiae (PCR) Strep pneumoniae (PCR) P. aeruginosa (PCR) Shahram/B-Vanco Res Genes KPC-Carbap Res Gene PCR Assessment & Plan Assessment & Plan narrative: This is a 68-year-old male with past medical history of anaplastic thyroid cancer and hypothyroidism to the emergency department for lethargy, admitted to for generalized weakness secondary to progression of his maligancy and staph bacteremia. 1. Generalized weakness, chronic, present on admission - likely secondary to new Debrafinib and Tremetinib initiation. Unlikely infectious source given absense of fever, however his R axilla may be a possible source of infection. It would also be very difficult to see if there is a pneumonia present on imaging. He has had poor PO intake secondary to tumor burden and chronic malnutrition is also a possibility. Initial troponin negative so unlikely ACS, given no chest pain or EKG changes. -pending hospice evaluation 2. Staphylococcal bacteremia -growing in [place] and anaerobic bottles. As noted above in subjective, 2 bottles are both growing Staph species and an hour and half later cultures were negative. Given his leukocytosis I suspect bacteremia is truly present, and he previously had Staph hominis in a wound culture which may be a source of infection given the extensiveness of his malignancy and skin findings. -continue ceftriaxone and vancomycin pending cultures -he would need prolonged therapy for staphylococcal bacteremia, this needs to be discussed with family about when to stop antibiotics. 3. Hypothyroidism - recently started on levothyroxine 75 mcg in the oncology clinic, TSH is 8 today which is improved since initiation. Will continue this dosing for now. - levothyroxine 75 mcg 4. Anaplastic thyroid cancer, chronic, present on admission - Patient follows with Dr. Waggoner here. 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 Recently started Debrafinib / Tremetinib therapy. - hold chemotherapy. -Hospice evaluation pending 5. Moderate protein calorie malnutrition - patient appears to have some muscle wasting on exam given chronically ill appearance, albumin is 3.2. This is likely due to recent poor PO intake and active malignancy. - nutrition consult -start regular diet for comfort Dispo: change to inpatient given bacteremia, pending hospice evaluation. DVT: HOLD given comfort goals Quality VTE Deep Vein Thrombosis/Pulmonary Embolism Present on Admission: No
--- NOTE | 2018-11-05 20:14 | ED.WEAKNESS ---
HPI - Weakness General Chief complaint: Weakness Stated complaint: Lethargic Time Seen by Provider: 11/04/18 08:54 Source: patient and EMS Mode of arrival: EMS Limitations: no limitations Related Data Previous Rx's Medication Instructions Recorded levothyroxine 75 mcg PO DAILY #30 tab 10/30/18 acetaminophen 650 mg PO Q6HR PRN #30 tab 11/07/18 acetaminophen 650 mg TN Q6HR PRN #12 each 11/07/18 atropine 2 drop SUBLINGUAL Q2HR PRN #5 ml 11/07/18 lorazepam [Lorazepam Intensol] 0.5 mg PO Q4HR PRN #30 ml 11/07/18 morphine 10 mg PO Q1H PRN #100 ml 11/07/18 scopolamine base [Transderm-Scop] 1 patch TOPICAL Q72H PRN #10 each 11/07/18 Allergies Allergy/AdvReac Type Severity Reaction Status Date / Time No Known Drug Allergies Allergy Verified 10/23/18 09:46 Review of Systems Constitutional Constitutional: Denies weakness Cardiovascular Cardiovascular: Denies syncope Musculoskeletal Musculoskeletal: Denies numbness Neurologic Neurologic: Reports as per HPI, Denies confusion, Denies syncope, Denies numbness and Denies weakness Psychiatric Psychiatric: Denies confusion [facility] Medical History Abnormal CT scan, neck (Chronic) Mediastinal mass (Chronic) Vocal cord paralysis (Chronic) BPH loc w urin obs/LUTS (Acute) Cancer of neck (Acute) Difficulty swallowing (Acute) Hiatal hernia (Acute) GERD (gastroesophageal reflux disease) (Chronic Unknown) Gout (Chronic Unknown) Hyperlipemia (Chronic Unknown) Hypertension (Chronic Unknown) Chickenpox (Resolved) Hemorrhoids (Resolved Unknown) Hx of cardiac arrhythmia (Resolved Unknown) Hx of deep venous thrombosis (Resolved 01/2016) Measles (Resolved) Mumps (Resolved) Surgical History Hx of bilateral cataract extraction (Acute ~2015) S/P bronchoscopy with biopsy (Acute 09/03/18) History of tonsillectomy and adenoidectomy (Resolved Unknown) Hx of appendectomy (Resolved Unknown) Hx of bilateral inguinal hernia repair (Resolved 12/2016) Family History (Updated 09/25/18 @ 14:38 by Pawan Waggoner MD) Sister Cancer Family/Other Cancer Family/Other Colon cancer Social History marital status: household members: spouse occupational status: previously employed Smoking Status: Never smoker alcohol intake: never substance use type: does not use Family History Sister Cancer Family/Other Cancer Family/Other Colon cancer Social History marital status: household members: spouse occupational status: previously employed Smoking Status: Never smoker alcohol intake: never substance use type: does not use Exam Initial Vital Signs Initial Vital Signs: Vital Signs Temperature 97.5 F L 11/04/18 09:09 Pulse Rate 93 H 11/04/18 09:09 Respiratory Rate 28 H 11/04/18 09:09 Blood Pressure 128/83 11/04/18 09:09 Pulse Oximetry 95 11/04/18 09:09 Course Orders Ordered: Acetaminophen (Tylenol) 650 mg PO Q6HR PRN PRN Reason: As Needed for Fever/Mild Pain Last Admin: 11/06/18 09:34 Dose: 650 mg Documented by: Admin: 11/05/18 08:58 Dose: 650 mg Documented by: Admin: 11/04/18 23:31 Dose: 650 mg Documented by: DAVID Acetaminophen (Tylenol) 650 mg TN Q6HR PRN PRN Reason: As Needed for Fever/Mild Pain Last Admin: 11/07/18 23:48 Dose: 650 mg Documented by: Admin: 11/07/18 15:40 Dose: 650 mg Documented by: YELITZA Atropine Sulfate (Atropine 1% Ophth Soln) 2 drops SL Q2HR PRN PRN Reason: Secretions Levothyroxine Sodium (Synthroid) 75 mcg PO 0600 TANK Last Admin: 11/07/18 11:59 Dose: Not Given Documented by: Admin: 11/06/18 09:34 Dose: 75 mcg Documented by: Admin: 11/05/18 08:58 Dose: Not Given Documented by: MEAGHAN Lorazepam (Lorazepam Intensol) 0.5 mg PO Q4HR PRN PRN Reason: Anxiety Last Admin: 11/07/18 21:42 Dose: 0.5 mg Documented by: YELITZA Morphine Sulfate (Morphine) 10 mg PO Q2HR PRN PRN Reason: Pain, Severe (7-10) Last Admin: 11/08/18 03:57 Dose: 10 mg Documented by: Admin: 11/07/18 22:53 Dose: 10 mg Documented by: Admin: 11/07/18 19:41 Dose: 10 mg Documented by: Admin: 11/07/18 16:14 Dose: 10 mg Documented by: Admin: 11/07/18 14:42 Dose: 10 mg Documented by: Admin: 11/07/18 11:04 Dose: 10 mg Documented by: ERYN Scopolamine (Transderm-Scop) 1 patch TOP Q72H PRN PRN Reason: Secretions Last Admin: 11/07/18 15:41 Dose: 1 patch Documented by: YELITZA Silver Nitrate/Potassium Nitrate (Silver Nitrate Stick) 1 each TOP PRN PRN PRN Reason: bleeding wound Sodium Chloride (Normal Saline 0.9% Flush) 10 ml IV PRN PRN PRN Reason: Flush Sodium Chloride (Normal Saline 0.9% Flush) 10 ml IV BID [facility] Last Admin: 11/07/18 19:40 Dose: 10 ml Documented by: Admin: 11/07/18 09:08 Dose: Not Given Documented by: Admin: 11/06/18 20:27 Dose: Not Given Documented by: Admin: 11/06/18 09:34 Dose: 10 ml Documented by: MEAGHAN Discontinued Medications Enoxaparin Sodium (Lovenox) 40 mg SUBCUT DAILY [facility] Last Admin: 11/05/18 08:58 Dose: 40 mg Documented by: MEAGHAN Sodium Chloride (Normal Saline 0.9%) 1,000 mls @ 1,000 mls/hr IV BOLUS ONE Stop: 11/04/18 09:59 Last Infusion: 11/04/18 10:20 Dose: 0 mls/hr Documented by: Admin: 11/04/18 09:32 Dose: 1,000 mls/hr Documented by: DWAYNE Ceftriaxone Sodium/Dextrose (Rocephin) 1 gm in 50 mls @ 100 mls/hr IV Q24H [facility] Last Infusion: 11/06/18 19:13 Dose: 100 mls/hr Documented by: Admin: 11/06/18 18:43 Dose: 100 mls/hr Documented by: Infusion: 11/05/18 18:01 Dose: 100 mls/hr Documented by: Admin: 11/05/18 17:31 Dose: 100 mls/hr Documented by: Infusion: 11/04/18 19:31 Dose: 100 mls/hr Documented by: Admin: 11/04/18 19:01 Dose: 100 mls/hr Documented by: GURJIT Dextrose/Sodium Chloride (Dextrose 5%-0.45% Ns) 1,000 mls @ 50 mls/hr IV CONT TANK Last Infusion: 11/07/18 11:11 Dose: 0 mls/hr Documented by: Admin: 11/06/18 15:44 Dose: 50 mls/hr Documented by: Infusion: 11/05/18 15:01 Dose: 50 mls/hr Documented by: Admin: 11/04/18 19:01 Dose: 50 mls/hr Documented by: GURJIT Vancomycin HCl 1,250 mg/ (Sodium Chloride) 250 mls @ 250 mls/hr IV Q8H TANK Last Infusion: 11/07/18 08:00 Dose: 0 mls/hr Documented by: Admin: 11/07/18 06:40 Dose: 250 mls/hr Documented by: Infusion: 11/06/18 23:43 Dose: 250 mls/hr Documented by: Admin: 11/06/18 22:43 Dose: 250 mls/hr Documented by: Infusion: 11/06/18 20:28 Dose: 250 mls/hr Documented by: Admin: 11/06/18 15:44 Dose: 250 mls/hr Documented by: Infusion: 11/06/18 09:27 Dose: 0 mls/hr Documented by: Admin: 11/06/18 06:18 Dose: 250 mls/hr Documented by: Infusion: 11/06/18 00:45 Dose: 0 mls/hr Documented by: Admin: 11/05/18 23:40 Dose: 250 mls/hr Documented by: Infusion: 11/05/18 15:31 Dose: 0 mls/hr Documented by: Admin: 11/05/18 14:21 Dose: 250 mls/hr Documented by: Infusion: 11/05/18 12:05 Dose: 0 mls/hr Documented by: Admin: 11/05/18 08:57 Dose: 250 mls/hr Documented by: MEAGHAN Morphine Sulfate (Morphine) 2 mg IV Q4HR PRN PRN Reason: Pain, Moderate (4-6) Morphine Sulfate (Morphine) 4 mg IV Q4HR PRN PRN Reason: Pain, Severe (7-10) Vancomycin HCl (Vancomycin Trough) 1 request [facility] [place] 0630 ONE Stop: 11/06/18 06:31 Last Admin: 11/06/18 06:19 Dose: 1 request Documented by: DAVID MDM - Weakness Lab Data Result diagrams: 11/07/18 05:10 11/06/18 05:40 Labs: Lab Results 11/04/18 11/04/18 11/04/18 Range/Units 09:05 09:05 09:05 WBC 34.1 H* (4.5-11.0) X10^3/uL RBC 4.35 L (4.5-5.9) X10^6/uL Hgb 12.5 L (13.5-17.5) g/dL Hct 37.5 L (41-53) % MCV 86.2 (80-100) fL MCH 28.7 (26-34) PG MCHC 33.3 (30-36) % RDW 16.6 H (11.6-14.8) % Plt Count 318 (150-400) X10^3/uL Neut % (Auto) Not Reportable Lymph % (Auto) Not Reportable [place] % (Auto) Not Reportable Eos % (Auto) Not Reportable Baso % (Auto) Not Reportable Lymph # (Auto) Not Reportable [place] # (Auto) Not Reportable Baso # (Auto) Not Reportable Total Counted 100 Seg Neutrophils % 48.0 (38-70) % Band Neutrophils % 9.0 H (3-7) % Lymphocytes % (Manual) 5.0 L (25-45) % Monocytes % (Manual) 5.0 (2-11) % Eosinophils % (Manual) 33.0 H (2-4) % Metamyelocytes % (-0) % Neutrophils # (Manual) 65198 H (7692-2717) /uL Toxic Granulation RBC Morphology See below Poikilocytosis 1+ H Anisocytosis 1+ H Smear Path Review PT 15.3 H (10.1-12.7) SECONDS INR 1.3 (0.9-1.3) APTT 26 L (26.4-36.2) SECONDS Sodium 137 (137-145) mmol/L Potassium 3.8 (3.4-5.1) mmol/L Chloride 101 (98-107) mmol/L Carbon Dioxide 25 (22-32) mmol/L BUN 33 H (9-20) mg/dL Creatinine 0.60 L (0.66-1.25) mg/dL Estimated GFR > 60.0 (>60) mL/min BUN/Creatinine Ratio 55.0 H (6-22) Glucose 117 H (80-110) mg/dL Lactate (0.7-2.1) mmol/L Calcium 8.5 (8.4-10.2) mg/dL Magnesium (1.6-2.3) mg/dL Total Bilirubin 1.0 (0.2-1.3) mg/dL AST 15 L (17-59) IU/L ALT 7 L (21-72) IU/L Alkaline Phosphatase 91 (38-126) U/L Troponin I < 0.012 (0.01-0.034) ng/mL Total Protein 6.8 (6.3-8.2) g/dL Albumin 3.2 L (3.5-5.0) g/dL Globulin 3.6 (1.7-4.1) g/dL Albumin/Globulin Ratio 0.9 L (1.0-2.8) TSH (0.47-4.68) uIU/mL Urine Color Urine Appearance Urine pH (4.5-8.0) Ur Specific Rebuck (1.000-1.035) Urine Protein (Negative) Urine Glucose (UA) (Negative) g/dL Urine Ketones (NEGATIVE) Urine Occult Blood (Negative) Urine Nitrate (Negative) Urine Bilirubin (NEGATIVE) Urine Ictotest (Negative) Urine Urobilinogen (0.2) E.U./dL Ur Leukocyte Esterase (NEGATIVE) Urine RBC (0-5/HPF) Urine WBC (0-5/HPF) Amorphous Sediment Urine Bacteria (None) Urine Mucus (Negative) Ur Culture Indicated? A. baumannii (PCR) (Not Detect) Kaylin albicans (PCR) (Not Detect) C. glabrata (PCR) (Not Detect) C. krusei (PCR) (Not Detect) C. parapsilosis (PCR) (Not Detect) C. tropicalis (PCR) (Not Detect) Enterobacteriac sp PCR (Not Detect) E. cloacae complex PCR (Not Detect) Enterococcus sp PCR (Not Detect) E. coli (PCR) (Not Detect) H. influenzae (PCR) (Not Detect) Klebsiella oxytoca PCR (Not Detect) Klebsiella pneumoniae (Not Detect) List. monocytogenes PCR (Not Detect) N. meningitidis (PCR) (Not Detect) Proteus species (PCR) (Not Detect) Serratia marcescens PCR (Not Detect) Staphylococcus sp PCR (Not Detect) Staph aureus (PCR) (Not Detect) mecA-Methicil Res Gene Streptococcus sp PCR (Not Detect) Group A Strep (PCR) (Not Detect) Strep agalactiae (PCR) (Not Detect) Strep pneumoniae (PCR) (Not Detect) P. aeruginosa (PCR) (Not Detect) Shahram/B-Vanco Res Genes KPC-Carbap Res Gene PCR 11/04/18 11/04/18 11/04/18 Range/Units 09:05 09:05 09:55 WBC (4.5-11.0) X10^3/uL RBC (4.5-5.9) X10^6/uL Hgb (13.5-17.5) g/dL Hct (41-53) % MCV (80-100) fL MCH (26-34) PG MCHC (30-36) % RDW (11.6-14.8) % Plt Count (150-400) X10^3/uL Neut % (Auto) Lymph % (Auto) [place] % (Auto) Eos % (Auto) Baso % (Auto) Lymph # (Auto) [place] # (Auto) Baso # (Auto) Total Counted Seg Neutrophils % (38-70) % Band Neutrophils % (3-7) % Lymphocytes % (Manual) (25-45) % Monocytes % (Manual) (2-11) % Eosinophils % (Manual) (2-4) % Metamyelocytes % (-0) % Neutrophils # (Manual) (4656-0655) /uL Toxic Granulation RBC Morphology Poikilocytosis Anisocytosis Smear Path Review PT (10.1-12.7) SECONDS INR (0.9-1.3) APTT (26.4-36.2) SECONDS Sodium (137-145) mmol/L Potassium (3.4-5.1) mmol/L Chloride (98-107) mmol/L Carbon Dioxide (22-32) mmol/L BUN (9-20) mg/dL Creatinine (0.66-1.25) mg/dL Estimated GFR (>60) mL/min BUN/Creatinine Ratio (6-22) Glucose (80-110) mg/dL Lactate (0.7-2.1) mmol/L Calcium (8.4-10.2) mg/dL Magnesium (1.6-2.3) mg/dL Total Bilirubin (0.2-1.3) mg/dL AST (17-59) IU/L ALT (21-72) IU/L Alkaline Phosphatase (38-126) U/L Troponin I (0.01-0.034) ng/mL Total Protein (6.3-8.2) g/dL Albumin (3.5-5.0) g/dL Globulin (1.7-4.1) g/dL Albumin/Globulin Ratio (1.0-2.8) TSH 8.43 H D (0.47-4.68) uIU/mL Urine Color Yellow Urine Appearance Clear Urine pH 5.5 (4.5-8.0) Ur Specific Rebuck 1.020 (1.000-1.035) Urine Protein 1+ H (Negative) Urine Glucose (UA) Negative (Negative) g/dL Urine Ketones 1+ H (NEGATIVE) Urine Occult Blood Negative (Negative) Urine Nitrate Negative (Negative) Urine Bilirubin 2+ H (NEGATIVE) Urine Ictotest Positive H (Negative) Urine Urobilinogen 2.0 H (0.2) E.U./dL Ur Leukocyte Esterase Negative (NEGATIVE) Urine RBC None seen (0-5/HPF) Urine WBC 0-1/hpf (0-5/HPF) Amorphous Sediment 1+ Urine Bacteria Occasional (0-1) (None) Urine Mucus 2+ H (Negative) Ur Culture Indicated? Cult not indicated A. baumannii (PCR) Not detected (Not Detect) Kaylin albicans (PCR) Not detected (Not Detect) C. glabrata (PCR) Not detected (Not Detect) C. krusei (PCR) Not detected (Not Detect) C. parapsilosis (PCR) Not detected (Not Detect) C. tropicalis (PCR) Not detected (Not Detect) Enterobacteriac sp PCR Not detected (Not Detect) E. cloacae complex PCR Not detected (Not Detect) Enterococcus sp PCR Not detected (Not Detect) E. coli (PCR) Not detected (Not Detect) H. influenzae (PCR) Not detected (Not Detect) Klebsiella oxytoca PCR Not detected (Not Detect) Klebsiella pneumoniae Not detected (Not Detect) List. monocytogenes PCR Not detected (Not Detect) N. meningitidis (PCR) Not detected (Not Detect) Proteus species (PCR) Not detected (Not Detect) Serratia marcescens PCR Not detected (Not Detect) Staphylococcus sp PCR Detected H (Not Detect) Staph aureus (PCR) Not detected (Not Detect) mecA-Methicil Res Gene Not Reportable Streptococcus sp PCR Not detected (Not Detect) Group A Strep (PCR) Not detected (Not Detect) Strep agalactiae (PCR) Not detected (Not Detect) Strep pneumoniae (PCR) Not detected (Not Detect) P. aeruginosa (PCR) Not detected (Not Detect) Shahram/B-Vanco Res Genes Not Reportable KPC-Carbap Res Gene PCR Not Reportable 11/04/18 11/05/18 11/05/18 Range/Units 10:35 05:26 05:26 WBC 32.9 H* (4.5-11.0) X10^3/uL RBC 4.11 L (4.5-5.9) X10^6/uL Hgb 11.7 L (13.5-17.5) g/dL Hct 35.2 L (41-53) % MCV 85.6 (80-100) fL MCH 28.5 (26-34) PG MCHC 33.3 (30-36) % RDW 16.7 H (11.6-14.8) % Plt Count 307 (150-400) X10^3/uL Neut % (Auto) Not Reportable Lymph % (Auto) Not Reportable [place] % (Auto) Not Reportable Eos % (Auto) Not Reportable Baso % (Auto) Not Reportable Lymph # (Auto) Not Reportable [place] # (Auto) Not Reportable Baso # (Auto) Not Reportable Total Counted 100 Seg Neutrophils % 59.0 (38-70) % Band Neutrophils % 14.0 H (3-7) % Lymphocytes % (Manual) 4.0 L (25-45) % Monocytes % (Manual) 3.0 (2-11) % Eosinophils % (Manual) 19.0 H (2-4) % Metamyelocytes % 1.0 H (-0) % Neutrophils # (Manual) 16458 H (7791-6825) /uL Toxic Granulation Present H RBC Morphology See below Poikilocytosis Anisocytosis 1+ H Smear Path Review PT (10.1-12.7) SECONDS INR (0.9-1.3) APTT (26.4-36.2) SECONDS Sodium 138 (137-145) mmol/L Potassium 3.5 (3.4-5.1) mmol/L Chloride 104 (98-107) mmol/L Carbon Dioxide 26 (22-32) mmol/L BUN 26 H (9-20) mg/dL Creatinine 0.70 (0.66-1.25) mg/dL Estimated GFR > 60.0 (>60) mL/min BUN/Creatinine Ratio 37.1 H (6-22) Glucose 126 H (80-110) mg/dL Lactate 1.7 (0.7-2.1) mmol/L Calcium 8.1 L (8.4-10.2) mg/dL Magnesium 2.4 H (1.6-2.3) mg/dL Total Bilirubin 1.0 (0.2-1.3) mg/dL AST 16 L (17-59) IU/L ALT 8 L (21-72) IU/L Alkaline Phosphatase 89 (38-126) U/L Troponin I (0.01-0.034) ng/mL Total Protein 6.3 (6.3-8.2) g/dL Albumin 2.9 L (3.5-5.0) g/dL Globulin 3.4 (1.7-4.1) g/dL Albumin/Globulin Ratio 0.9 L (1.0-2.8) TSH (0.47-4.68) uIU/mL Urine Color Urine Appearance Urine pH (4.5-8.0) Ur Specific Rebuck (1.000-1.035) Urine Protein (Negative) Urine Glucose (UA) (Negative) g/dL Urine Ketones (NEGATIVE) Urine Occult Blood (Negative) Urine Nitrate (Negative) Urine Bilirubin (NEGATIVE) Urine Ictotest (Negative) Urine Urobilinogen (0.2) E.U./dL Ur Leukocyte Esterase (NEGATIVE) Urine RBC (0-5/HPF) Urine WBC (0-5/HPF) Amorphous Sediment Urine Bacteria (None) Urine Mucus (Negative) Ur Culture Indicated? A. baumannii (PCR) (Not Detect) Kaylin albicans (PCR) (Not Detect) C. glabrata (PCR) (Not Detect) C. krusei (PCR) (Not Detect) C. parapsilosis (PCR) (Not Detect) C. tropicalis (PCR) (Not Detect) Enterobacteriac sp PCR (Not Detect) E. cloacae complex PCR (Not Detect) Enterococcus sp PCR (Not Detect) E. coli (PCR) (Not Detect) H. influenzae (PCR) (Not Detect) Klebsiella oxytoca PCR (Not Detect) Klebsiella pneumoniae (Not Detect) List. monocytogenes PCR (Not Detect) N. meningitidis (PCR) (Not Detect) Proteus species (PCR) (Not Detect) Serratia marcescens PCR (Not Detect) Staphylococcus sp PCR (Not Detect) Staph aureus (PCR) (Not Detect) mecA-Methicil Res Gene Streptococcus sp PCR (Not Detect) Group A Strep (PCR) (Not Detect) Strep agalactiae (PCR) (Not Detect) Strep pneumoniae (PCR) (Not Detect) P. aeruginosa (PCR) (Not Detect) Shahram/B-Vanco Res Genes KPC-Carbap Res Gene PCR Discharge Plan Departure Patient Disposition: Admitted as Observation Clinical Impression: Weakness, Hematuria, Anaplastic thyroid carcinoma Discharge Date/Time: 11/04/18 12:05 Referrals: Reuben Rosado MD [Primary Care Provider] - Pawan Waggoner MD [Physician] - Admit Date/Time: 11/05/18 12:05 Admit Provider: Darion Al
[2018-11-06] VITALS (9 sets, daily range): BP systolic 121–163; BP diastolic 71–96; PULSE 79–89; RESP 20–33; TEMP 36.7–37.9; O2SAT 92–99
[2018-11-06 05:57] LABS: Hematocrit 35.6 % (41-53); Hemoglobin 11.7 g/dL (13.5-17.5); Mean Corpuscular Hemoglobin 28.6 PG (26-34); Mean Corpuscular Volume 86.7 fL (80-100); Platelet Count 306 X10^3/uL (150-400); Red Blood Cell Count 4.11 X10^6/uL (4.5-5.9); Red Cell Distribution Width 16.4 % (11.6-14.8)
[2018-11-06 06:00] LABS: Add Manual Diff / Slide Review YES; White Blood Cell Count 34.6 X10^3/uL (4.5-11.0)
[2018-11-06 06:07] LABS: Alanine Aminotransferase 12 IU/L (21-72); Albumin 2.9 g/dL (3.5-5.0); Albumin Globulin Ratio 0.8 (1.0-2.8); Alkaline Phosphatase 88 U/L (38-126); Aspartate Aminotransferase 16 IU/L (17-59); BUN Creatinine Ratio 38.3 (6-22); Bilirubin Total 0.8 mg/dL (0.2-1.3); Blood Urea Nitrogen 23 mg/dL (9-20); Carbon Dioxide 25 mmol/L (22-32); Chloride 106 mmol/L (98-107); Estimated Glomerular Filt Rate > 60.0 mL/min (>60); Globulin 3.5 g/dL (1.7-4.1); Glucose 133 mg/dL (80-110); HEMOLYSIS < 15 (0-50); Magnesium 2.4 mg/dL (1.6-2.3); Potassium 3.5 mmol/L (3.4-5.1); Sodium 142 mmol/L (137-145); Total Protein 6.4 g/dL (6.3-8.2)
[2018-11-06 06:10] LABS: Vancomycin Trough 15.1 ug/mL (10-20)
[2018-11-06 06:17] LABS: Neutrophils Absolute Manual 21798 /uL (3000-5900); Total Cells Counted 100
[2018-11-06 06:18] LABS: RBC Morphology Normal Morphology
[2018-11-06] MEDS: VANCOMYCIN 1,250 MG in SODIUM CHLORIDE 0.9% 250 ML IV ×3 (06:18→22:43)
[2018-11-06] MEDS: VANCOMYCIN TROUGH 1 REQUEST MISC (06:19)
--- NOTE | 2018-11-06 06:52 | PC.NURSE ---
Pt afebrile this shift. Still tachypneic at RR 30, no respiratory distress noted. Turned and positioned q2h. Voids in urinal. Urine is pretty dark orange/roman urine. IVF running as ordered. Vanco trough within range. Tele: NSR No complaints of any pain. Right axillary dressing is clean, dry, and intact. WBC Critical at 34.6, HEALTH CARE LAW SPECIALIST Brian aware, no interventions.
[2018-11-06] MEDS: LEVOTHYROXINE 75 MCG TABLET PO (09:34)
[2018-11-06] MEDS: ACETAMINOPHEN 325 MG TABLET 650 MG PO (09:34)
[2018-11-06] MEDS: SODIUM CHLORIDE 0.9% FLUSH 10 ML IV (09:34)
--- NOTE | 2018-11-06 11:10 | PT-IP ANOTE ---
Patient's family is planning for discharge with Hospice. No skilled physical therapy needs identified at this time. Will discharge Physical therapy order.
--- NOTE | 2018-11-06 11:14 | PC.NURSE ---
Pt seems to be feeling better today. No shivers or shakes. He will be discharged home on oral antibiotics. Resting in bed at this time.
--- NOTE | 2018-11-06 11:47 | PC.NURSE ---
Addendum entered by Geovanna Rene R.N. 11/06/18 15:11: Pts dressing to R.axillary changed. O bleeding, area actually looks better today. Addendum entered by Geovanna Rene R.N. 11/06/18 14:10: Pt had an 8 beat run of vtach and also a 6 beat run of vtach.. Checked on patient and he denies any pain or chest discomfort. Pt has been resting comfortably and not taking in a lot of food. He is getting ivf at 50cc/hr...L arm is swollen, elevated on a pillow. Original Note: Pt is comfortable today..Denies pain when asked. He is A&Ox3 for the most part but can be confused at times. He has a cancerous open wound under his l.axillary area that has been oozing blood. Will be changing this a bit later today. Given tylenol for low grade temp. He did eat a couple of bites of jello and his meds were crushed with applesauce. Pt does not swallow well, he does have some vocal cord damage. Visiting with his family and . His plan is to go home with hospice, maybe later today.
--- NOTE | 2018-11-06 13:25 | CM.DPNOTE ---
DCP Cont: This VAUDEVILLE ACTOR working closely w/Gloria Billingsleyce-Laws, dry mill worker, familiar w/pt and his family. She met w/pt/family yesterday and initiated referral to Hospice. Spoke w/Malissa at Hospice who said pt's Juanito had signed consent forms for Hospice to begin service. TC placed to Belk[facility] at [facility] P#[phone]. She explained that pt/spouse have an indp. apt at [facility], she does not need to complete an assessment in order for pt to return home. She can work out additional care as needed once pt comes home. Then met w/pt's Juanito, brother Sang and Sang's , explained this VAUDEVILLE ACTOR's role. Koffidiony and Sang agree that pt needs to return home to [facility]. This VAUDEVILLE ACTOR reviewed the feasibility of this plan i.e. does Juanito have enough support to care for pt once home? Family feel confident they can manage since pt is expected to be bed bound. Discussed the delivery of DME through [facility] tomorrow and encouraged family to consider in home cgs. Sang accepting of this idea, provided the Senior Resource Guide for Sang to make calls to arrange this. Discussed transportation and reviewed the possibility that Medicaid would not cover BLS (?) Prosperakbar adamant that pt remain comfortable and will pay out of pocket expense as needed. TC placed to Lenka at [facility]. Reviewed above. truck repair supervisor can see pt at home Saturday morning. Pt can be DC home after DME (mainly hospital bed) is delivered Saturday. Faxed H+P and Ht/Wt for bed. DC Summary can be sent tomorrow. Following closely for coordination of safe DCP. Dr Mooney aware of above and will review her recommendation to DC IV abx w/ pt's family. Juanito has requested that brother Sang be the point person for this conversation. ALISHA Daily Discharge Planning/Care Management CM Discharge Assessment Start: 11/06/18 13:22 Freq: Status: Active Protocol: Document 11/06/18 13:22 CONCEPCION (Rec: 11/06/18 13:25 CONCEPCION [id number]) Discharge Planning Assessment Assigned Ironing Machine Operator ALISHA Kelsey DPOA/Assigned Designee Name Juanito, spouse and Sang Squries, brother Contact Information Juanito: [phone] Advance Directives? No History Provided By Patient Prior Living Arrangements Nursing Home Facility Household Members spouse Facility Name Ad[facility]: [facility] Willing to Return to Facility? Yes Independent with ADL's Yes Is patient alert and oriented? Yes: Developmentally delayed Discharge Plan Hospice Transportation Arrangement BLS per spouse's request Referrals Initiated Other Additional Comment Hospice referral initated by Oncology VAUDEVILLE ACTOR
--- NOTE | 2018-11-06 13:39 | P.PN_ITS ---
Subjective Subjective Date Patient Seen: 11/06/18 Interval history: Jim Squires is a 68-year-old male with past medical history significant for anaplastic thyroid cancer and hypothyroidism who presented to the ED for lethargy and generalized weakness. Interval history: The patient had 2 short runs of Vtach early afternoon that were non-sustained and asymptomatic. The patient is resting in bed and appears comfortable. He denies pain. He is very lethargic overall. He reports he wants to go home. 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 He has no complaints and denies headache, throat or neck pain, cough, shortness of breath, chest shad n, abdominal pain, nausea, vomiting, fever, chills, dysuria, diarrhea or constipation. He is incontinent but voiding without difficulty. He has not had a BM since admission but has had very little PO intake. He is predominately in bed. Exam Vital Signs (past 8 hours): - 11/06/18 08:00 11/06/18 09:34 11/06/18 12:00 Temperature 100.2 F H 100 F H 100.2 F H Pulse Rate 84 89 Respiratory Rate 32 H 33 H Blood Pressure 149/75 H 135/78 Pulse Oximetry 93 95 Oxygen Delivery Method Room Air Oxygen Flow Rate 0 Narrative Exam Narrative: General: Older gentleman lying in bed, in no acute distress and does not appear uncomfortable, withdrawn and minimally responsive. HEENT: Normocephalic, atraumatic. External ears without defect. Pupils equal, round, and reactive to light. Anicteric sclerae, moist conjunctivae, and no lid lag. Oropharynx free of erythema and cobble stoning with moist mucosa. Neck: Large, firm, non-tender central neck mass. Right axilla/chest wall also has moderate, firm non-mobile, and necrotic mass with minimal serous drainage. Cardiovascular: Regular rate and rhythm without murmurs, rubs, or gallops appreciated. Pulmonary: Clear to auscultation bilaterally without crackles, wheezes, or rhonchi. Shallow respirations without use of accessory muscles. Abdomen: Soft, bowel sounds present, nontender, nondistended. No hepatosplenomegaly or masses appreciated. Extremities: No clubbing, cyanosis, or edema. Skin: Normal temperature, turgor, and texture; no rash, ulcers, or subcutaneous nodules appreciated. Neurological: Cranial nerves grossly intact. Psychiatric: Withdrawn and minimally but appropriately responsive. Objective Labs Result Diagrams: 11/07/18 05:10 11/06/18 05:40 Labs: Laboratory Results - last 24 hr 11/04/18 11/06/18 11/06/18 09:05 05:40 05:40 WBC 34.6 H* RBC 4.11 L Hgb 11.7 L Hct 35.6 L MCV 86.7 MCH 28.6 MCHC 33.0 RDW 16.4 H Plt Count 306 Neut % (Auto) Not Reportable Lymph % (Auto) Not Reportable [place] % (Auto) Not Reportable Eos % (Auto) Not Reportable Baso % (Auto) Not Reportable Lymph # (Auto) Not Reportable [place] # (Auto) Not Reportable Baso # (Auto) Not Reportable Total Counted 100 Seg Neutrophils % 44.0 Band Neutrophils % 19.0 H Lymphocytes % (Manual) 6.0 L Monocytes % (Manual) 3.0 Eosinophils % (Manual) 26.0 H Metamyelocytes % 2.0 H Neutrophils # (Manual) 92542 H RBC Morphology Normal morphology Smear Path Review Sodium 142 Potassium 3.5 Chloride 106 Carbon Dioxide 25 BUN 23 H Creatinine 0.60 L Estimated GFR > 60.0 BUN/Creatinine Ratio 38.3 H Glucose 133 H Calcium 8.0 L Magnesium 2.4 H Total Bilirubin 0.8 AST 16 L ALT 12 L Alkaline Phosphatase 88 Total Protein 6.4 Albumin 2.9 L Globulin 3.5 Albumin/Globulin Ratio 0.8 L Vancomycin Trough 11/06/18 05:40 WBC RBC Hgb Hct MCV MCH MCHC RDW Plt Count Neut % (Auto) Lymph % (Auto) [place] % (Auto) Eos % (Auto) Baso % (Auto) Lymph # (Auto) [place] # (Auto) Baso # (Auto) Total Counted Seg Neutrophils % Band Neutrophils % Lymphocytes % (Manual) Monocytes % (Manual) Eosinophils % (Manual) Metamyelocytes % Neutrophils # (Manual) RBC Morphology Smear Path Review Sodium Potassium Chloride Carbon Dioxide BUN Creatinine Estimated GFR BUN/Creatinine Ratio Glucose Calcium Magnesium Total Bilirubin AST ALT Alkaline Phosphatase Total Protein Albumin Globulin Albumin/Globulin Ratio Vancomycin Trough 15.1 Assessment & Plan Assessment & Plan narrative: Jim Squires is a 68-year-old male with past medical history significant for anaplastic thyroid cancer and hypothyroidism who presented to the ED for lethargy and generalized weakness. 1. Comfort care. -Previous provider discussed with patient and family goals of care and the entire family is adamant about not receiving feeding tube and keeping patient comfortable. Plan to discuss discontinuation of antibiotics and IVF pending blood culture results. -Ordered morphine 2-4 mg IV every 4 hours as needed for pain. -Evaluated by hospice today and equipment will be delivered tomorrow and hospice will open thereafter. 2. Generalized weakness, chronic, present on admission. Active. -Likely secondary to new Debrafinib and Tremetinib initiation and advancing a naplastic thyroid cancer. -Discontiued therapies as patient is comfort care. -Evaluated by hospice today and equipment will be delivered tomorrow and hospice will open thereafter. 3. Possible staph bacteremia versus contaminant, present on admission. Active. -Blood cultures preliminarily growing Staph species in both aerobic and anaerobic bottles and likely contaminant per microbiology lab. -Continue ceftriaxone 1 g daily and vancomycin with dosing per pharmacist pending final blood cultures. 4. 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 Active. -Patient is followed by Dr. Waggoner of oncology. 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 Recently started Debrafinib / Tremetinib therapy. -Discontinue chemotherapy. -Evaluated by hospice today and equipment will be delivered tomorrow and hospice will open thereafter. 5. Hypothyroidism, present on admission. Active. -Recently started on levothyroxine 75 mcg by oncology on 10/30. -Repeat TSH is 8.43 which is improved since initiation and will repeat with reflex to free T4 prior to considering dose adjustment. Continue levothyroxine 75 mcg daily for now. 6. Acute on chronic severe protein calorie malnutrition, present on admission. Active. -Patient with muscle wasting, albumin is 3.2 ,dysphagia secondary to anaplastic thyroid carcinoma, 11% weight loss in 2 months (severe), <50% estimated energy requirement in 1 mo, reliance on shakes for nutrition. -Consulted hematology technician and appreciate recommendations. Disposition:Patient likely to discharge home on hospice tomorrow. Quality VTE Deep Vein Thrombosis/Pulmonary Embolism Present on Admission: No
--- NOTE | 2018-11-06 15:26 | OT.IP.TRT ---
Current Diagnoses Bacteremia (11/05/18) Occupational Therapy Treatment Note M3 OT- IP Subjective and Pain Start: 11/04/18 14:26 Freq: Status: Active Protocol: Document 11/06/18 15:25 [facility] (Rec: 11/06/18 15:26 [facility] [id number]) OT- Subjective Occupational Therapy Visit Type Type Administrative Note Notes Pt's family planning on discharging with Hospice for pt, therefore discharge OT eval orders.
[2018-11-06] MEDS: DEXTROSE 5%-0.45% NS 1,000 ML 50 ML IV (15:44)
[2018-11-06] MEDS: CEFTRIAXONE 1 GM/50 ML FROZ.PIGGY IV (18:43)
[2018-11-07] VITALS (13 sets, daily range): BP systolic 118–166; BP diastolic 60–91; PULSE 93–109; RESP 26–56; TEMP 36.5–39.8; O2SAT 83–94
[2018-11-07 05:41] LABS: Magnesium 2.4 mg/dL (1.6-2.3)
[2018-11-07 05:45] LABS: Hematocrit 34.4 % (41-53); Hemoglobin 11.2 g/dL (13.5-17.5); Mean Corpuscular HGB Conc 32.7 % (30-36); Mean Corpuscular Hemoglobin 28.4 PG (26-34); Mean Corpuscular Volume 86.8 fL (80-100); Platelet Count 293 X10^3/uL (150-400); Red Blood Cell Count 3.96 X10^6/uL (4.5-5.9); Red Cell Distribution Width 16.8 % (11.6-14.8)
[2018-11-07 05:59] LABS: Add Manual Diff / Slide Review YES
[2018-11-07] MEDS: VANCOMYCIN 1,250 MG in SODIUM CHLORIDE 0.9% 250 ML IV (06:40)
[2018-11-07 07:13] LABS: Anisocytosis 1+; Neutrophils Absolute Manual 18560 /uL (3000-5900); Total Cells Counted 100
--- NOTE | 2018-11-07 08:06 | P.DS_ITS ---
History of Present Illness History of Present Illness Date Patient Seen: 11/04/18 Chief complaint: Lethargic Narrative: Written by Dr. Al: This is a 68-year-old male with past medical history of anaplastic thyroid cancer and hypothyroidism to the emergency department for lethargy. The patient himself states that he is here for hematuria, but he endorses weakness and worsening fatigue. He feels like his weakness has been worse over the past few weeks, nothing seems to improve this recently. He recently started a new chemotherapy regimen. He denies fevers, chills, nausea, vomiting, chest pain, pressure, cough, abdominal pain, constipation, diarrhea, or dysuria. He feels like sometimes it is hard to take a deep breath, but this is unchanged recently. He falls asleep easily during exam, but responds to simple questions and is alert and oriented x3. The is currently unavailable at bedside for further history. In the ED, his UA was negative for blood, CBC showed a leukocytosis to 34,000 but no other evidence of infection. This was discussed by the ED with the oncologist Dr. Waggoner who follows him and he suspected a possible leukemoid reaction. Chest x-ray done in the emergency room showed increasing size of known metastases, but no apparent infiltrates. He was admitted under observation status for weakness and leukocytosis. Discharge Providers Provider Date of admission: 11/05/18 12:05 Discharge Date: 11/07/18 Primary care physician: Reuben Rosado MD Consults: 11/04/18 11:51 Consult to Occupational Therapy Evaluate & Treat Comment: Physician Instructions: Evaluate and treat Consult to Physical Therapy Evaluate & Treat Comment: Physician Instructions: Evaluate and Treat 11/04/18 12:35 Consult to Dietitian, Adult Routine Comment: Reason For Exam: drinking shakes only, difficulty swallow, wt loss Consult to Pastoral Services Routine Comment: per patient request Discharge provider: Madison Mooney DO Summary Hospital Course Hospital Course: Jim Squires is a 68-year-old male with past medical history significant for anaplastic thyroid cancer and hypothyroidism who presented to the ED for lethargy and generalized weakness. 1. Comfort care. -Previous provider discussed with patient and family goals of care and the en tire family is adamant about not receiving feeding tube and keeping patient comfortable. -Discontinued antibiotics as patient does not have an active infection and leukocytosis secondary to neoplastic process. -Ordered comfort care medications including: Morphine concentrate 10 mg every 2 hours as needed for pain, discomfort, or air hunger; lorazepam 0.5 mg every 4 hours as needed for anxiety or agitation, scopolamine patch placed transdermal every 72 hours as needed for secretions. -Evaluated by hospice and equipment will be delivered today and hospice will open thereafter. 2. Generalized weakness, chronic, present on admission. Active. -Likely secondary to new Debrafinib and Tremetinib initiation and advancing anaplastic thyroid cancer. -Discontinued therapies as patient is comfort care. -Evaluated by hospice and equipment will be delivered today and hospice will open thereafter. 3. Bacteremia ruled out. -Continued ceftriaxone 1 g daily and vancomycin with dosing per pharmacist pending final blood cultures [facility] grew staph capitis in 1:1 of aerobic and anaerobic bottles which is a contaminant. 4. 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 Active. -Patient is followed by Dr. Waggoner of oncology. 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 Recently started Debrafinib / Tremetinib therapy. -Discontinued chemotherapy. -Evaluated by hospice and equipment will be delivered today and hospice will open thereafter. 5. Hypothyroidism, present on admission. Active. -Recently started on levothyroxine 75 mcg by oncology on 10/30. -Repeat TSH was 6.51 with free T4 0.74 which is improving and will take 4-6 weeks to completely adjust. Continue levothyroxine 75 mcg daily. 6. Acute on chronic severe protein calorie malnutrition, present on admission. Active. -Patient with muscle wasting, albumin is 3.2 ,dysphagia secondary to anaplastic thyroid carcinoma, 11% weight loss in 2 months (severe), <50% estimated energy requirement in 1 mo, reliance on shakes for nutrition. -Consulted automation tender and appreciate recommendations. Exam Vital Signs (past 8 hours): - 11/07/18 00:35 11/07/18 05:18 Temperature 98.5 F Pulse Rate 109 H Respiratory Rate 34 H Blood Pressure 164/80 H Pulse Oximetry 94 93 Oxygen Delivery Method Room Air Oxygen Flow Rate 0 Narrative Exam Narrative: General: Older gentleman lying in bed, in no acute distress and does not appear uncomfortable, withdrawn and minimally but appropriately responsive. HEENT: Normocephalic, atraumatic. External ears without defect. Pupils equal, round, and reactive to light. Anicteric sclerae, moist conjunctivae, and no lid lag. Laryngitis due to neck mass, worsening. Neck: Large, firm, non-tender central neck mass. Right axilla/chest wall also has moderate, firm non-mobile, and necrotic mass with minimal serous drainage. Cardiovascular: Regular rate and rhythm without murmurs, rubs, or gallops appreciated. Pulmonary: Clear to auscultation bilaterally in all lung johnson without crackles, wheezes, or rhonchi. Shallow respirations without use of accessory muscles. Upper airway rhochi. Abdomen: Soft, bowel sounds present, non-tender, non-distended. No hepatosplenomegaly or masses appreciated. Extremities: No clubbing, cyanosis, or edema. Skin: Normal temperature, turgor, and texture; no rash, ulcers, or subcutaneous nodules appreciated. Neurological: Cranial nerves grossly intact. Psychiatric: Withdrawn and minimally but appropriately responsive. Objective Labs Result Diagrams: 11/07/18 05:10 11/06/18 05:40 Labs: Laboratory Results - last 24 hr 11/07/18 11/07/18 05:10 05:10 WBC 32.0 H* RBC 3.96 L Hgb 11.2 L Hct 34.4 L MCV 86.8 MCH 28.4 MCHC 32.7 RDW 16.8 H Plt Count 293 Neut % (Auto) Not Reportable Lymph % (Auto) Not Reportable [place] % (Auto) Not Reportable Eos % (Auto) Not Reportable Baso % (Auto) Not Reportable Lymph # (Auto) Not Reportable [place] # (Auto) Not Reportable Baso # (Auto) Not Reportable Total Counted 100 Seg Neutrophils % 38.0 Band Neutrophils % 20.0 H Lymphocytes % (Manual) 4.0 L Eosinophils % (Manual) 38.0 H Neutrophils # (Manual) 73005 H RBC Morphology Not Reportable Anisocytosis 1+ H Magnesium 2.4 H Discharge Plan Discharge Plan Patient Disposition: Hospice - Home Discharge comment: Your being discharged home with hospice and comfort care medications. Discharge Med Rec/Prescriptions Prescriptions: New acetaminophen 325 mg Tablet 650 mg PO Q6HR PRN (Reason: As Needed For Fever/Mild Pain) Qty: 30 RF: 0 acetaminophen 650 mg Suppository 650 mg OK Q6HR PRN (Reason: As Needed For Fever/Mild Pain) Qty: 12 RF: 0 lorazepam [Lorazepam Intensol] 2 mg/mL Concentrate 0.5 mg PO Q4HR PRN (Reason: Anxiety) Qty: 30 RF: 0 scopolamine base [Transderm-Scop] 1 mg over 3 days Patch 3 Day 1 patch topical Q72H PRN (Reason: Secretions) Qty: 10 RF: 0 atropine 1 % Drops 2 drop sublingual Q2HR PRN (Reason: Secretions) Qty: 5 RF: 0 morphine 10 mg/5 mL solution 10 mg PO Q1H PRN (Reason: pain, discomfort, air hunger) Qty: 100 RF: 0 Continued levothyroxine 75 mcg Tablet 75 mcg PO DAILY Qty: 30 RF: 5 Discontinued Mekinist 2 mg Tablet 2 mg PO Q24H 30 Days Qty: 30 RF: 0 Citracal Powder 1 dose PO DAILY RF: 0 Follow up/Referrals: Reuben Rosado MD [Primary Care Provider] - Pawan Waggoner MD [Physician] - Discharge Data Primary Care Provider: Reuben Rosado Quality VTE Deep Vein Thrombosis/Pulmonary Embolism Present on Admission: No
[2018-11-07 08:34] LABS: TSH w/ Reflex to FT4 6.51 uIU/mL (0.47-4.68)
[2018-11-07 08:59] LABS: Free T4, Direct Thyroxine 0.74 ng/dL (0.78-2.19)
[2018-11-07] MEDS: MORPHINE 10 MG/0.5 ML ORAL SYRINGE PO ×5 (11:04→22:53)
--- NOTE | 2018-11-07 13:14 | PC.NURSE ---
Addendum entered by Felisha Schwratz R.N. 11/07/18 14:55: RR 56 bpm, PRN Morphine po given at 1442.Axilla temp checked again for 102.2F. Previously cold cloths placed on pt and blankets removed for T 100.2F Temporal at 1155. Dr. Mooney came to room at 1450, made aware of temp requesting prn SUPP Acetaminophen. Pt stated feeling a little warm. Right axilla dressing removed for moderate amount or purulent drainage, moistened with NS to remove adaptic over tumor. Cleansed, new adaptic placed over tumor and covered with dry gauze 4X4, secured with paper tape. Original Note: Day Shift- Pt oriented to name and , soft spoken, very hard for pt to talk and has painful swallow. Sipped 1 sip of water and was coughing, choking. Refused AM scheduled med. Oral care provided. Repositioning every 2 hours from side to side and waffle cushion under coccyx. Using ELISA bed tilt for repositioning as well. Brief update given to pt's Juanito this AM, Dr. Mooney in to see pt and Juanito. Plan for comfort and discharge back to [facility]osp[facility]. Juanito left unit tearful, upset, stating she'll be okay and Jim will be okay with God. Support provided. IVF stopped at 1110 to right wrist PIV. Right axilla dressing slightly opened, plan to change prior to discharge. Pt has increase in RR, 38-49 bpm, Morphine po prn given at 1105, RR decreased to 31 bpm, fan placed in front of pt for air hunger. Comfort needs provided. High fall risk precautions in place, bed alarm on, pt does not use call light or try to get OOB on own.
[2018-11-07] MEDS: ACETAMINOPHEN 650 MG SUPP PR ×2 (15:40→23:48)
[2018-11-07] MEDS: SCOPOLAMINE 1 PATCH TOP (15:41)
--- NOTE | 2018-11-07 15:58 | CM.DPNOTE ---
DCP Cont: Change in plan today; pt had a massive stroke confirmed by MRI and after Dr Mooney's conversation with spouse Shannan, pt has been changed to comfort care. Met throughout the day w/spouse Shannan, talked about DCP options and also requested info visit through [facility]. Later met son Rommel as well. ospice is likely a few days out for admission, DME delivery might be arranged sooner. Shannan and pt's son Rommel as if pt could go to [facility] for comfort management while they secure ME at [facility], private in home caregiving, and Hospice follow up. This is a very resaonable plan and pt has been made an inpt as of today, 8. TC placed to August at [facility], discussed change in pt's medical status and change in DCP; [facility] agreeable to accepting pt after 3 night inpt stay (Saturday) for approx. 5 days , if he survives the SNF stay, family can get pt home w/Hospice in place. Updated pt's spouse/family re: above P: [facility] Saturday for comfort management Still need to update [facility]. PASRR needed Amita Chowdary MSW
--- NOTE | 2018-11-07 16:26 | CM.DPNOTE ---
Addendum entered by ALISHA Daily 11/07/18 16:37: In addition: spoke w/ Belkys at [facility] earlier today and she is in close contact w/family about assessing pt's care needs once pt is on Hospice services. Original Note: DCP Cont: All in place for plan: Home today to [facility] with Hospice to open 12-19, cg and therapeutic case manager through [facility] arriving Saturday to assist /family once pt home. At 1600, update from LEI Baeza that pt has spiked fever this afternoon, Tylenol suppository given and comfort management continues although Dr Mooney and RN fear that pt is not safe at home w/o Hospice service in place to direct care immediately upon pt's return home. DC home has been cancelled for Saturday and rescheduled for Saturday, BLS arranged for 0900, Lenka at [facility] has been updated and pt's brother Sang updated. This MENTAL HEALTH SOCIAL WORKER strongly encouraged Sang and Juanito to arrive at Hospital after delivery of the DME to be w/pt as Dr Mooney unsure whether he will survive the night. P: If pt survives the night, DC Saturday morning, home w/family, HNW 12-19, [facility], via BLS for safety, pt w/decreased consciousness, NPO, and in a declining state. ALISHA Daily
--- NOTE | 2018-11-07 16:35 | PC.NURSE ---
Addendum entered by Nanci Johnston R.N. 11/07/18 22:54: Morphine oral solution for pt's tachypnea as per conversation with Dr. Mooney. Addendum entered by Nanci Johnston R.N. 11/07/18 19:41: Family has visited with pt and left pt's side for the evening. Head Of Human Resources has visited pt and family members. Morphine administered to manage pt's end of life symptoms. Pt is tachypneic @ rest. Addendum entered by Nanci Johnston R.N. 11/07/18 19:12: Head Of Human Resources Ben has arrived and pt now with eyes open. Pt is verbal, denies pain. I've been sleeping. Allowing for pt to be interactive with periodontist and family members. No change in mottling to BL LE's. Addendum entered by Nanci Johnston R.N. 11/07/18 18:59: Offered periodontist visit to pt's family. Spouse desires this and LAUNDRY FOLDER was made aware. Pt continues to rest quietly in bed with eyes closed without signs of distress, discomfort, anxiety. Respiratory rate 40. Cool washcloth to pts forehead as spouse states pt feels warm. Family agrees pt does not look distressed or uncomfortable. Addendum entered by Nanci Johnston R.N. 11/07/18 18:01: Dr. Mooney in to speak with pt's family members; spouse, brother and [id number]. Addendum entered by Nanci Johnston R.N. 11/07/18 17:41: Pt resting quietly in bed without signs of distress or discomfort. Family arrives at bedside as per Dr. Mooney's request. Dr. Mooney in house and was informed. Original Note: Pt alone in room @ beginning of shift. Eyes closed with respiratory rate of 49. Room air saturation level 91-92%. Indwelling peters catheter placed as per direction from debra RN per Dr. Mooney. 16 Fr with immediate return roman colored urine. Rectal tylenol administered for comfort. Pt is currently afebrile, but torso and upper extremities are very warm to touch. Allevyn gentle border dressings to BL buttocks are intact. Dry gauze dressing intact to right axilla. Scope patch placed behind pt's left ear. Sublingual morphine as ordered to treat tachypnea. Mottling noted to BL LE's distal to knees with cool extremities. BLS crew here to transport pt to facility. Discussed discharge with associate merchandise planner, Yamilet, who states cancelling discharge d/t no hospice care available until the a.m. Dr. Mooney was informed by DIONICIO Woodard, who then informs this life underwriter pt's spouse and brother have been informed of this change in plans. Pt's extremities supported on pillows with waffle cushion under buttocks. Fan circulating air in pt's room with quiet tv music playing. View room for careful monitoring by staff. Bed alarm in place. Pt's head of bed slightly elevated to enhance respiratory effort.
[2018-11-07] MEDS: SODIUM CHLORIDE 0.9% FLUSH 10 ML IV (19:40)
[2018-11-07] MEDS: LORazepam 2 MG/ML ORAL SOL 0.5 MG PO (21:42)
[2018-11-08] VITALS: O2SAT 83
--- NOTE | 2018-11-08 02:00 | PC.NURSE ---
2348- Temp. 103.7 Tylenol suppository admin. Rechecked temp. now 98.9, breathing very shallow & very tachypneic RR 48 @ 2348. Bilat. lower extremities mottled & very cold to touch. Will monitor.
[2018-11-08] MEDS: MORPHINE 10 MG/0.5 ML ORAL SYRINGE PO (03:57)
[2018-11-08 05:04] VITALS: BP 79/51; PULSE 96; RESP 60; TEMP 37.6
--- NOTE | 2018-11-08 07:36 | PC.NURSE ---
Was in pt. room with day RN doing bedside shift report, when pt. draws his last breath. @ 0732. Called pt's. spouse & Dr. Mooney was here this morning & already talked to patients spouse.
--- NOTE | 2018-11-08 08:07 | CM.DPC ---
DCP Cont: Per MD, pt this morning at 0732 and family called and aware. SW called [facility] and updated that pt passed at the hospital and will not be requiring the planned [id number] opening today. SW called [facility] and cancelled BLS transport this morning at 0900 and updated them that pt . ALISHA Jin
--- NOTE | 2018-11-08 09:02 | PC.NURSE ---
Summary: Patient . Post-mortem care provided by david BENITEZ and MIDDLE SCHOOL COMBINATION TEACHER. Medardo and ALMA bautista. This story writer spoke with patient's and confirmed that nobody planned to come here to see patient prior to transfer. Patient taken out by [facility] staff at this time. Small bag with a couple clothing items was given to [facility] to give to family.
== END 2018-11-08 10:07 | disposition expired | DRG 947 ==
LOC: ED 11:17 → AC 11:21
PROVIDERS: Internal Medicine; Admitting Provider Internal Medicine; Emergency Provider Emergency Medicine; PCP Student in an Organized Health Care Education/Training Program; Visit Provider Internal Medicine
DX: R53.1 Weakness (principal); E43 Unspecified severe protein-calorie malnutrition; C77.3 Secondary and unspecified malignant neoplasm of axilla and upper limb lymph nodes; I47.2 Ventricular tachycardia; C78.7 Secondary malignant neoplasm of liver and intrahepatic bile duct; C79.00 Secondary malignant neoplasm of unspecified kidney and renal pelvis; C77.0 Secondary and unspecified malignant neoplasm of lymph nodes of head, face and neck; D72.829 Elevated white blood cell count, unspecified; C73 Malignant neoplasm of thyroid gland; Z68.26 Body mass index [BMI] 26.0-26.9, adult; E03.9 Hypothyroidism, unspecified; T81.89XD Other complications of procedures, not elsewhere classified, subsequent encounter; S41.101D Unspecified open wound of right upper arm, subsequent encounter; Z51.5 Encounter for palliative care
CPT/HCPCS: 36415; 36591; 71045; 80053; 80202; 81001; 83605; 83735; 84439; 84443; 84484; 85025; 85610; 85730; 87040; 87086; 87150; 87186; 87205; 93005; 93041; 96360; 96365; 99283; G0378; J1650